=== PATIENT | male | born 1955 | race Caucasian/White ===

== ENCOUNTER → 2016-05-30 | Outpatient (CLI) | payer OTHER ==
[2016-05-30 08:49] LABS: Basophils % (A) 1 %; CH 30.7; Eosinophils # (A) 0.1 k/uL (0-0.7); Eosinophils % (A) 1 %; HCT 45.2 % (39.0-53.0); HDW 2.22; HGB 14.2 gm/dL (13.0-17.5); Luc # (Auto) 0.13; Luc % (Auto) 3; Lymphocytes % (A) 22 %; MCH 30.3 pg (25.0-35.0); MCHC 31.4 g/dL (31.0-37.0); MCV 96.4 fL (80.0-100.0); Mean Platelet Volume 8.6; Monocytes # (A) 0.3 k/uL (0-1.0); Monocytes % (A) 7 %; Neutrophils # (A) 3.1 k/uL (1.3-7.7); Neutrophils % (A) 66 %; RBC 4.69 m/uL (4.30-5.90); RDW 13.1 % (11.5-15.5); WBC 4.7 k/uL (3.8-10.6); WBC (Perox) 4.63
[2016-05-30 10:51] LABS: ALT 60 U/L (21-72); AST 35 U/L (17-59); Alkaline Phosphatase 95 U/L (38-126); Anion Gap 11 mmol/L; Blood Urea Nitrogen 18 mg/dL (9-20); Carbon Dioxide 27 mmol/L (22-30); Chloride 105 mmol/L (98-107); Glucose 106 mg/dL (74-99); Non-African American GFR(MDRD) >60 (>60 ml/min/1.73 sqM); Potassium 4.6 mmol/L (3.5-5.1); Sodium 143 mmol/L (137-145); Total Bilirubin 0.8 mg/dL (0.2-1.3); Total Protein 7.4 g/dL (6.3-8.2)
[2016-05-30 11:01] LABS: Follicle Stimulating Hormone 2.2 mIU/mL (1.6-9.7)
[2016-05-30 11:16] LABS: Prostate Specific Antigen 1.16 ng/mL (0.00-4.00)
[2016-05-30 11:18] LABS: Estradiol 29 pg/mL (5-66)
[2016-05-30 12:32] LABS: Hepatitis C Virus IgG Ab Negative (Negative)
== END | disposition home or self-care (01) ==
LOC: LABWHC1 08:19
PROVIDERS: ATTEND Obstetrics & Gynecology
DX: R35.1 Nocturia (principal); M19.90 Unspecified osteoarthritis, unspecified site; N52.9 Male erectile dysfunction, unspecified; E55.9 Vitamin D deficiency, unspecified; E29.1 Testicular hypofunction; Z13.9 Encounter for screening, unspecified
CPT/HCPCS: 36415; 80053; 82306; 82670; 83001; 84153; 84402; 84403; 84443; 85025; 86803

== ENCOUNTER → 2016-07-10 | Day surgery (SDC) | payer BC, OTHER ==
[2016-07-05 13:54] VITALS: BMI 27.6
[~2016-07-10] MED LIST: LACTATED RINGERS 1,000 ML IV SCH; LIDOCAINE 1% 20 ML VIAL (10MG/ML) FOR IV START INTRADERMA PRN; LIDOCAINE 1% INJ 10MG/ML (20 ML MDV) ONE; PROPOFOL 10 MG/ML 20 ML VIAL IV ONE
[2016-07-10 08:23] VITALS: RESP 20; TEMP 98.3
--- NOTE | 2016-07-10 08:51 | P.PCN ---
Date of Procedure: 07/10/16 Procedure(s) Performed: BRIEF HISTORY: Patient is a 60-year-old pleasant white male, scheduled for an elective colonoscopy as a part of evaluation of Hemoccult-positive stool. PROCEDURE PERFORMED: Colonoscopy. PREOPERATIVE DIAGNOSIS: Hemoccult Positive stool. IV sedation per Anesthesia. PROCEDURE: After informed consent was obtained, the patient, was brought into the endoscopy unit. IV conscious sedation was administered by Anesthesia under continuous monitoring. Initially the Olympus CF-160 flexible video colonoscope was then inserted in the rectum, gradually advanced into the cecum without any difficulty. Careful examination was performed as the scope was gradually being withdrawn. Ileocecal valve and the appendiceal orifice were visualized and appeared normal. Prep was excellent. Mucosa of the cecum, ascending colon, transverse colon, descending colon, sigmoid colon, and rectum appeared normal. Scattered diffuse diverticulosis seen. Retroflexion was performed in the rectum and all internal hemorrhoids were seen. The patient tolerated the procedure well. IMPRESSION: Normal-appearing colon from rectum to cecum with no evidence of colorectal neoplasia. Scattered diffuse diverticulosis Small internal hemorrhoids RECOMMENDATIONS: Findings of this examination were discussed with the patient as well as his family. He was advised to have a repeat scanning colonoscopy in 10 years.
[2016-07-10 09:14] VITALS: BP 126/81; PULSE 63
--- NOTE | 2016-07-15 05:19 | CDI ---
Dear Dr. Pereyra, The Procedure Note documents IV Sedation per Anesthesia in one spot and then under Procedure IV Conscious sedation is also documented. The Anesthesia Record has GA/Unconscious sedation checked off under Technique. This is conflicting documentation that needs clarification. Please clarify whether the sedation provided Tico Delaney was Conscious sedation or Unconscious Sedation. PLEASE DOCUMENT THIS CLARIFICATION AN ADDENDUM TO THE PROCEDURE NOTE. Thank you for our time, Sofia Estrella, [facility] Outpatient Public Transit Bus Driver [email or web address] [email or web address]
--- NOTE | 2016-07-19 11:58 | PCN ---
ADDENDUM TO PROCEDURE NOTE: General anesthesia was utilized instead of IV conscious sedation.
== END ==
LOC: ORWHC2ENDO 07:51
PROVIDERS: ATTEND Internal Medicine Gastroenterology
DX: K57.30 Diverticulosis of large intestine without perforation or abscess without bleeding (principal); K64.8 Other hemorrhoids; I10 Essential (primary) hypertension; K21.9 Gastro-esophageal reflux disease without esophagitis; Z79.899 Other long term (current) drug therapy
CPT/HCPCS: 45378; J2001; J2704

== ENCOUNTER 2018-04-16 10:44 | Day surgery (SDC) | payer OTHER ==
[2018-04-14 09:57] VITALS: BMI 26.1
[~2018-04-16 10:44] MED LIST changes: +ASPIRIN 325 MG TAB PO ONE; -LACTATED RINGERS 1,000 ML IV SCH; -LIDOCAINE 1% 20 ML VIAL (10MG/ML) FOR IV START INTRADERMA PRN; -LIDOCAINE 1% INJ 10MG/ML (20 ML MDV) ONE; +NITROGLYCERIN SL TABS 0.4 MG TAB SUBLINGUAL PRN; -PROPOFOL 10 MG/ML 20 ML VIAL IV ONE; +SODIUM CHLORIDE 0.9% 1,000 ML in EMPTY BAG 1 BAG IV ONE
[2018-04-16] MEDS: ALPRAZolam 0.25 MG TAB PO PRN ×2 (11:10→22:57)
[2018-04-16 11:13] LABS: Basophils % (A) 0 %; Eosinophils % (A) 1 %; HCT 48.8 % (39.0-53.0); HGB 15.7 gm/dL (13.0-17.5); Lymphocytes # (A) 1.2 k/uL (1.0-4.8); Lymphocytes % (A) 20 %; MCH 30.1 pg (25.0-35.0); MCHC 32.2 g/dL (31.0-37.0); MCV 93.5 fL (80.0-100.0); Monocytes # (A) 0.4 k/uL (0-1.0); Monocytes % (A) 6 %; Neutrophils # (A) 4.3 k/uL (1.3-7.7); Neutrophils % (A) 70 %; Platelet Count 201 k/uL (150-450); RBC 5.22 m/uL (4.30-5.90); RDW 13.3 % (11.5-15.5); WBC 6.1 k/uL (3.8-10.6)
[2018-04-16 11:23] LABS: Anion Gap 11 mmol/L; Blood Urea Nitrogen 19 mg/dL (9-20); Calcium 9.5 mg/dL (8.4-10.2); Carbon Dioxide 30 mmol/L (22-30); Chloride 99 mmol/L (98-107); Glucose 102 mg/dL (74-99); Potassium 3.7 mmol/L (3.5-5.1); Sodium 140 mmol/L (137-145)
[2018-04-16] MEDS ORDERED: fentaNYL (PF) 50 MCG/ML 2 ML AMP ONE (11:39)
[2018-04-16] MEDS ORDERED: VERAPAMIL 2.5 MG/ML 2 ML AMP ONE (11:39)
[2018-04-16] MEDS ORDERED: LIDOCAINE 1% INJ 10MG/ML (20 ML MDV) ONE (11:39)
[2018-04-16] MEDS ORDERED: HEPARIN SODIUM 1,000 UN/ML (10ML VL) ONE (11:39)
[2018-04-16] MEDS ORDERED: fentaNYL (PF) 50 MCG/ML 2 ML AMP IVP ONE (12:20)
[2018-04-16] MEDS ORDERED: LIDOCAINE 1% (PF) 10MG/ML VIAL SQ ONE (12:24)
[2018-04-16] MEDS ORDERED: VERAPAMIL SYRINGE (5 MG/10 ML) INTRAARTER ONE (12:27)
[2018-04-16] MEDS ORDERED: NITROGLYCERIN 1000MCG/10ML SYRINGE INTRACORON ONE (12:32)
[2018-04-16] MEDS ORDERED: HEPARIN SODIUM 1,000 UN/ML (10ML VL) IV ONE (12:32)
[2018-04-16] MEDS ORDERED: RX INFO: IV CONTRAST WAS GIVEN 1 EACH MISC MISCELLANE PRN (13:00)
[2018-04-16] MEDS ORDERED: SODIUM CHLORIDE 0.9% 1,000 ML IV SCH (13:00)
[2018-04-16 14:10] LABS: Basophils % (A) 1 %; Eosinophils % (A) 1 %; HCT 44.7 % (39.0-53.0); HGB 14.3 gm/dL (13.0-17.5); Lymphocytes # (A) 1.3 k/uL (1.0-4.8); Lymphocytes % (A) 20 %; MCH 29.5 pg (25.0-35.0); MCHC 31.9 g/dL (31.0-37.0); MCV 92.3 fL (80.0-100.0); Monocytes # (A) 0.4 k/uL (0-1.0); Monocytes % (A) 7 %; Neutrophils # (A) 4.3 k/uL (1.3-7.7); Neutrophils % (A) 69 %; Platelet Count 171 k/uL (150-450); RBC 4.84 m/uL (4.30-5.90); RDW 13.3 % (11.5-15.5); WBC 6.2 k/uL (3.8-10.6)
[2018-04-16 14:16] LABS: Prothrombin Time 11.1 sec (9.0-12.0)
[2018-04-16 14:33] LABS: ALT 37 U/L (21-72); AST 29 U/L (17-59); Albumin 4.1 g/dL (3.5-5.0); Alkaline Phosphatase 102 U/L (38-126); Anion Gap 10 mmol/L; Blood Urea Nitrogen 18 mg/dL (9-20); Calcium 9.2 mg/dL (8.4-10.2); Carbon Dioxide 25 mmol/L (22-30); Chloride 102 mmol/L (98-107); Cholesterol 141 mg/dL (<200); Glucose 101 mg/dL (74-99); HDL Cholesterol 51 mg/dL (40-60); LDL Cholesterol,Calculated 82 mg/dL (0-99); Magnesium 1.9 mg/dL (1.6-2.3); Potassium 3.7 mmol/L (3.5-5.1); Sodium 137 mmol/L (137-145); Triglycerides 41 mg/dL (<150)
[2018-04-16 14:49] LABS: Partial Thromboplastin Time 74.4 sec (22.0-30.0)
[2018-04-16 14:52] LABS: Appearance,Urine Clear (Clear); Bilirubin,Urine Negative (Negative); Blood,Urine Negative (Negative); Color,Urine Yellow; Glucose,Urine (UA) Negative (Negative); Ketones,Urine 2+ (Negative); Leukocyte Esterase,Urine Negative (Negative); Nitrite,Urine Negative (Negative); PH, Urine 8.5 (5.0-8.0); Protein,Urine Negative (Negative); Urobilinogen,Urine <2.0 mg/dL (<2.0)
[2018-04-16 14:56] LABS: Specific Gravity,Urine >1.050 (1.001-1.035)
--- NOTE | 2018-04-16 15:33 | XR ---
EXAMINATION TYPE: XR chest 2V DATE OF EXAM: 04/16/2018 COMPARISON: None HISTORY: Shortness of breath TECHNIQUE: Frontal and lateral views of the chest are obtained. FINDINGS: Scattered senescent parenchymal changes noted. Hyperinflation compatible with COPD. No evidence for infiltrate. No evidence for atelectasis. Heart size is stable. Mediastinal structures are stable and grossly unremarkable. No evidence for hilar prominence. Degenerative changes dorsal spine. IMPRESSION: 1. No evidence for acute pulmonary disease.
--- NOTE | 2018-04-16 15:40 | CC ---
CARDIAC CATHETERIZATION REPORT Rhett Reyna is a 62-year-old male with a history of hypertension, hyperlipidemia who recently has been complaining of episode of chest discomfort, at times at rest and at times at exertion. He underwent a stress echocardiogram that revealed evidence of apical ischemia. In view of that, recommendation made regarding cardiac catheterization. The procedures, risks and complications were discussed with the patient who is in full understanding and agreement. PROCEDURE: Patient was brought to laboratory technician in a fasting semi-sedated state after receiving fentanyl and Benadryl and achieving moderate conscious sedated state. Using Xylocaine anesthesia and Seldinger technique, a 6-Zambian sheath was introduced in the right radial artery. Selective right and left coronary angiography was performed using 5- [place]ian 3.5 bend right and left Emiliano catheter, multiple views of the coronary artery including hemiaxial views were obtained. Following that, a 5-[place]ambian tight pigtail catheter was introduced in the left ventricle and a 30 degree ALVAREZ view of the left ventricle was obtained. Following that, catheter and sheath were removed. Hemostasis was obtained with deployment of a TR band. There was no immediate complication. Patient was returned to his room in stable condition. Of note, the patient received 4500 units of intravenous heparin as well as intra-arterial verapamil. FINDINGS: FLUOROSCOPY: There was severe calcification involving the proximal LAD. LEFT MAIN: This is a large-sized vessel, bifurcating into left circumflex, left anterior descending artery. Left main coronary artery has no evidence of high-grade stenosis. LEFT ANTERIOR DESCENDING ARTERY: This vessel is totally occluded at the takeoff of the first septal low altitude air defense gunner. There is ipsilateral collaterals filling up the LAD close to where the total occlusion is. LEFT CIRCUMFLEX: This is a large-sized vessel, nondominant, giving rise to a large obtuse marginal branch. The left circumflex has a 20% plaque in the mid segment. The distal left circumflex has a 50% to 60% plaque, beyond that, the vessel is moderate in caliber. RIGHT CORONARY ARTERY: This vessel is totally occluded proximally with no significant antegrade flow. COLLATERALS: There is collaterals from the left coronary system toward the right PDA and PLV. LEFT VENTRICULOGRAM: Left ventriculogram is performed in 30 degree ALVAREZ view and revealed apical anterior hypokinesis, ejection fraction is 50%. There is no significant mitral regurgitation. HEMODYNAMICS: There was no gradient across the aortic valve. The left ventricular end-diastolic pressure was 16-20 mmHg. CONCLUSION: 1. 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 2. Moderate disease in the distal left circumflex. 3. Mildly impaired left ventricular systolic function. RECOMMENDATION: In view of finding anatomy, I recommend proceeding with evaluation for possible coronary artery bypass grafting. The other option will be to proceed with high risk complex angioplasty. Depending on his progress, further recommendation will be made. Those findings and recommendations were discussed with the patient and his family who are in full understanding and agreement. Duration of the procedure is 17 minutes. MMKOMALL / ASMITAN: [id number] /
--- NOTE | 2018-04-16 15:44 | P.GSCN ---
Addendum entered and electronically signed by Gris Luna NP-C 04/17/18 15:05 : Preoperative testing was reviewed in detail with Dr. Bridges. Plan is for off- pump coronary artery bypass graft surgery with left internal mammary artery and left radial artery harvesting, exclusion of the left atrial appendage, and intraoperative transesophageal echocardiogram by Dr. Bridges on 05/14/2018. This was agreeable to the patient and his . Dr. Castanon was made aware by Dr. Bridges. The patient was instructed if he has any chest pain he should return to the emergency room and surgery may occur earlier. The patient was in agreement with this plan. Continue aspirin, statin, beta rosaura therapy. Patient will return shortly before surgery to get updated lab work and type and screen drawn. Original Note: History of Present Illness Consult date: 04/16/18 Reason for Consult: Symptomatic multivessel coronary artery disease. Requesting physician: Lisa Castanon History of present illness: This is 62-year-old gentleman who is followed by Dr. Mathieu Marin on an outpatient basis. His past medical history significant for hypertension, dyslipidemia, anxiety, glaucoma, family history of early onset coronary artery disease with an uncle from a myocardial infarction at age 40 and gastroesophageal reflux disease. 2 years ago while sleeping the patient was woken up due to some complaints of chest discomfort associated with lightheadedness, diaphoresis and complaints of nausea. Recently, the patient has been having similar type episodes which have not been associated with activity. He denies any nausea, syncope, fever, chills, or near syncope. Due to the patient's above-mentioned symptoms he underwent a stress echocardiogram which was completed it [facility] which demonstrated stress induced hypokinetic distal anterior and apical wall motion abnormality. During the stress test he did not have any complaints of chest discomfort. The patient reports he also underwent a Holter monitor which showed normal sinus rhythm with short bursts of supraventricular tachycardia. He was subsequently seen by Dr. Castanon from [facility] and was recommended to undergo an elective heart catheterization. Patient was brought into the hospital and after obtaining consent was taken to the [facility] Operator where he underwent an elective left heart catheterization performed by Dr. Castanon which demonstrated a totally occluded right coronary artery and a totally occluded proximal left anterior descending coronary artery. Also during the cardiac catheterization a left ventriculogram was completed which showed him to have an ejection fraction of 50%. Due to the patient's symptoms, stress test results and cardiac catheterization results a consult was placed to Dr. Jose Bridges from cardiothoracic surgery for recommendations on myocardial revascularization surgery. Review of Systems A 14 point review of systems was completed and was negative except as mentioned in the HPI. Past Medical History Past Medical History: Eye Disorder, GERD/Reflux, Hyperlipidemia, Hypertension Additional Past Medical History / Comment(s): glaucoma, spells of lightheadedness. History of Any Multi-Drug Resistant Organisms: None Reported Past Surgical History: Ear Surgery Additional Past Surgical History / Comment(s): Colonoscopy, injections and laser treatments to his bilateral lower extremities for varicose veins. Laser eye treatments for glaucoma. Past Anesthesia/Blood Transfusion Reactions: No Reported Reaction Additional Past Anesthesia/Blood Transfusion Reaction / Comm: Easily sedated. Past Psychological History: Anxiety Smoking Status: Never smoker Past Alcohol Use History: Occasional Past Drug Use History: None Reported - Past Family History Mother Family Medical History: Cancer, Coronary Artery Disease (CAD) (Stent placement in her 70s.) Additional Family Medical History / Comment(s): Ovarian Father Family Medical History: AFIB, Hypertension Additional Family Medical History / Comment(s): Hypertension and atrial fibrillation. Medications and Allergies Home Medications Medication Instructions Recorded Confirmed Type Brimonidine Tartrate/Timolol 1 drop BOTH EYES BID 07/05/16 04/16/18 History [Combigan 0.2%-0.5% Eye Drops] Travoprost [Travatan Z 0.004%] 1 drop BOTH EYES DAILY 07/05/16 04/16/18 History Hydrochlorothiazide [Hydrodiuril] 25 mg PO DAILY 04/14/18 04/16/18 History Netarsudil Mesylate [Rhopressa] 1 drop BOTH EYES DAILY 04/14/18 04/16/18 History Aspirin 81 mg PO HS 04/16/18 04/16/18 History Allergies Allergy/AdvReac Type Severity Reaction Status Date / Time No Known Allergies Allergy Verified 04/14/18 09:21 Surgical - Exam Vital Signs Temp Pulse Resp BP Pulse Ox 97.8 F 66 16 164/93 100 04/16/18 11:17 04/16/18 11:17 04/16/18 11:17 04/16/18 11:17 04/16/18 11:17 - General well developed, well nourished, no distress, no pain - Eyes PERRL, normal ocular movement - ENT normal pinna, normal nares, normal mucosa, no hearing loss, no congestion - Neck Neck is supple, no lymphadenopathy. no masses, no bruits, trachea midline, no venous distension - Respiratory Lung sounds are essentially clear throughout. Respirations are symmetrical and nonlabored. Oxygen saturation are 99% on room air. Bedside FEV1 completed which demonstrated a predicted value of 98%. - Cardiovascular Regular rhythm and rate. S1 and S2 present, negative for S3, gallop or murmur. No edema present. - Abdomen Abdomen is soft, nontender and nondistended. Active bowel sounds all 4 abdominal quadrants. No organomegaly. No guarding or rigidity. - Genitourinary Deferred - Rectum Deferred - Integumentary no rash, no growths, no abnormal pigmentation - Neurologic normal coordination, normal sensation - Musculoskeletal normal gait, normal posture - Psychiatric oriented to time, oriented to person, oriented to place, speech is normal, memory intact Results - Labs 04/16/18 13:18 04/16/18 13:18 Abnormal Lab Results - Last 24 Hours (Table) 04/16/18 04/16/18 04/16/18 Range/Units 11:00 13:18 13:18 APTT 74.4 H (22.0-30.0) sec Glucose 102 H 101 H (74-99) mg/dL Urine pH (5.0-8.0) Ur Specific [place] (1.001-1.035) Urine Ketones (Negative) 04/16/18 Range/Units Unknown APTT (22.0-30.0) sec Glucose (74-99) mg/dL Urine pH 8.5 H (5.0-8.0) Ur Specific [place] >1.050 H (1.001-1.035) Urine Ketones 2+ H (Negative) Diabetes panel 04/16/18 04/16/18 Range/Units 11:00 13:18 Sodium 140 137 (137-145) mmol/L Potassium 3.7 3.7 (3.5-5.1) mmol/L Chloride 99 102 (98-107) mmol/L Carbon Dioxide 30 25 (22-30) mmol/L BUN 19 18 (9-20) mg/dL Creatinine 0.94 0.91 (0.66-1.25) mg/dL Glucose 102 H 101 H (74-99) mg/dL Calcium 9.5 9.2 (8.4-10.2) mg/dL AST 29 (17-59) U/L ALT 37 (21-72) U/L Alkaline Phosphatase 102 (38-126) U/L Total Protein 7.0 (6.3-8.2) g/dL Albumin 4.1 (3.5-5.0) g/dL Triglycerides 41 (<150) mg/dL HDL Cholesterol 51 (40-60) mg/dL Thyroid panel 04/16/18 Range/Units 13:18 TSH 0.650 (0.465-4.680) mIU/L Calcium panel 04/16/18 04/16/18 Range/Units 11:00 13:18 Calcium 9.5 9.2 (8.4-10.2) mg/dL Albumin 4.1 (3.5-5.0) g/dL Pituitary panel 04/16/18 04/16/18 Range/Units 11:00 13:18 Sodium 140 137 (137-145) mmol/L Potassium 3.7 3.7 (3.5-5.1) mmol/L Chloride 99 102 (98-107) mmol/L Carbon Dioxide 30 25 (22-30) mmol/L BUN 19 18 (9-20) mg/dL Creatinine 0.94 0.91 (0.66-1.25) mg/dL Glucose 102 H 101 H (74-99) mg/dL Calcium 9.5 9.2 (8.4-10.2) mg/dL TSH 0.650 (0.465-4.680) mIU/L Adrenal panel 04/16/18 04/16/18 Range/Units 11:00 13:18 Sodium 140 137 (137-145) mmol/L Potassium 3.7 3.7 (3.5-5.1) mmol/L Chloride 99 102 (98-107) mmol/L Carbon Dioxide 30 25 (22-30) mmol/L BUN 19 18 (9-20) mg/dL Creatinine 0.94 0.91 (0.66-1.25) mg/dL Glucose 102 H 101 H (74-99) mg/dL Calcium 9.5 9.2 (8.4-10.2) mg/dL Total Bilirubin 1.0 (0.2-1.3) mg/dL AST 29 (17-59) U/L ALT 37 (21-72) U/L Alkaline Phosphatase 102 (38-126) U/L Total Protein 7.0 (6.3-8.2) g/dL Albumin 4.1 (3.5-5.0) g/dL - Imaging Comments: Cardiac catheterization results were reviewed. Assessment and Plan (1) Hypertension Current Visit: Yes Status: Acute Code(s): I10 - ESSENTIAL (PRIMARY) HYPERTENSION SNOMED Code(s): 20650975 (2) Dyslipidemia Current Visit: Yes Status: Acute Code(s): E78.5 - HYPERLIPIDEMIA, UNSPECIFIED SNOMED Code(s): 654301132 (3) Coronary artery disease Current Visit: Yes Status: Acute Code(s): I25.10 - ATHSCL HEART DISEASE OF [place] CORONARY ARTERY W/O ANG PCTRS SNOMED Code(s): 93110671 (4) GERD (gastroesophageal reflux disease) Current Visit: Yes Status: Acute Code(s): K21.9 - GASTRO-ESOPHAGEAL REFLUX DISEASE WITHOUT ESOPHAGITIS SNOMED Code(s): 968057811 (5) Glaucoma Current Visit: Yes Status: Acute Code(s): H40.9 - UNSPECIFIED GLAUCOMA SNOMED Code(s): 85300655 (6) Anxiety Current Visit: Yes Status: Acute Code(s): F41.9 - ANXIETY DISORDER, UNSPECIFIED SNOMED Code(s): 48234766 (7) Family history of premature coronary artery disease Current Visit: Yes Status: Acute Code(s): Z82.49 - FAMILY HX OF [place] HEART DIS AND OTH DIS OF THE CIRC SYS SNOMED Code(s): 732976302 Plan: The patient was seen and examined. His chart and diagnostics were reviewed. The patient was seen and examined by Dr. Jose Bridges from cardiothoracic surgery. Preoperative testing and preoperative teaching has been initiated. 5 m walk test was completed, time 1: 3.16 seconds, time 2: 2.53 seconds, time 3: 2.26 seconds. STS risk score has been calculated and has been discussed with the patient by Dr. Bridges. Once all of his preoperative teaching has been completed the patient will be scheduled for an elective myocardial revascularization surgery with MARQUEZ and endoscopic harvesting of the left radial artery. With the risks and benefits discussed with the patient and his the patient would like to proceed on an elective basis with myocardial revascularization surgery. Continue to optimize medical management. Bedside pulmonary function test has been completed and showed an FEV1 predicted value of 98%. The patient also reports that he has had vein laser surgery to his bilateral lower extremities for varicose veins. Thank you Dr. Castanon for this consult and we look 40 working with you in the care of your patient. Time with Patient: Greater than 30
[2018-04-16] MEDS: METOPROLOL TARTRATE 25 MG TAB PO SCH ×2 (17:30→20:43)
[2018-04-16] MEDS: ISOSORBIDE MONONITRATE ER 30 MG TAB.ER.24H PO SCH (17:30)
--- NOTE | 2018-04-16 18:04 | US ---
EXAMINATION TYPE: US carotid duplex BILAT DATE OF EXAM: 04/16/2018 COMPARISON: NONE CLINICAL HISTORY: preop cabg. EXAM MEASUREMENTS: RIGHT: Peak Systolic Velocity (PSV) cm/sec ----- Right CCA: 75.7 ----- Right ICA: 106.0 ----- Right ECA: 74.9 ICA/CCA ratio: 1.4 RIGHT: End Diastole cm/sec ----- Right CCA: 17.5 ----- Right ICA: 21.9 ----- Right ECA: 12.8 LEFT: Peak Systolic Velocity (PSV) cm/sec ----- Left CCA: 92.2 ----- Left ICA: 76.8 ----- Left ECA: 142.0 ICA/CCA ratio: 0.8 LEFT: End Diastole cm/sec ----- Left CCA: 21.9 ----- Left ICA: 23.0 ----- Left ECA: 24.1 VERTEBRALS (direction of flow): Right Vertebral: Antegrade Left Vertebral: Antegrade Rhythm: Normal No significant stenosis seen, mild plaque noted IMPRESSION: There is antegrade flow in the vertebral arteries. The images and measurements suggest l ess than 25% stenosis in both internal carotid arteries. Criteria for Assigning % of Stenosis / Diameter reduction (Estimation based on the indirect measurements of the internal carotid artery velocities (ICA PSV). 1. Normal (no stenosis)=ICA PSV < 125 cm/s: ratio < 2.0: ICA EDV<40 cm/s. 2. Less than 50% stenosis=ICA PSV < 125 cm/s: ratio < 2.0: ICA EDV<40 cm/s. 3. 50 to 69% stenosis=ICA PSV of 125 to 230 cm/s: ration 2.0 ? 4.0: ICA EDV 40-100 cm/s. 4. Greater than 70% stenosis to near occlusion= ICA PSV > 230 cm/s: ratio > 4.0: ICA EDV > 100 cm/s. 5. Near occlusion= ICA PSV velocities may be low or undetectable: variable ratio and ICA EDV. 6. Total occlusion=unable to detect flow.
[2018-04-16] MEDS: TIMOLOL 0.5% OPHTH DROPS 5 ML BTL BOTH EYES SCH (20:36)
[2018-04-16] MEDS: BRIMONIDINE TARTRATE 0.2% DROPS 5 ML BTL BOTH EYES SCH (20:36)
[2018-04-16] MEDS ORDERED: ASPIRIN 81 MG PO SCH (21:00)
[2018-04-16 21:27] LABS: Hepatitis A Antibody IgM Non-Reactive (Non-Reactive); Hepatitis B Core IgM Non-Reactive (Non-Reactive)
[2018-04-16 21:31] LABS: Hemoglobin A1C 5.5 % (4.0-6.0)
[2018-04-16] MEDS: MUPIROCIN 2% OINT 22 GM TUBE NASAL SCH (21:52)
[2018-04-17 06:37] LABS: Calcium 8.8 mg/dL (8.4-10.2)
--- NOTE | 2018-04-17 07:08 | PN ---
PROGRESS NOTE Mr. Delaney is a 62-year-old male who presented with symptoms of chest discomfort and abnormal stress echocardiogram. He underwent cardiac catheterization yesterday revealed a chronically occluded right coronary artery and the LAD in the proximal segment. His left ventricular systolic function was mildly impaired with anteroapical hypokinesis. He was evaluated by Dr. Bridges and the plan is to proceed with coronary artery bypass grafting. He is doing well this morning. Denying any chest pain. He has ambulated. No dizziness. No palpitation. He continued to be on aspirin 81 mg daily, Lipitor 40 mg daily, hydrochlorothiazide 25 mg daily, isosorbide mononitrate 30 mg daily, metoprolol tartrate 25 mg twice a day. PHYSICAL EXAMINATION: Blood pressure 100/60 with the heart rate in the 60s. LUNGS: Clear. HEART: Regular rate and rhythm. S1, S2. No S3. No rub. ABDOMEN: Soft, nontender. EXTREMITIES: No edema. Right radial pulse intact. LAB DATA: Lab data revealed BUN and creatinine of 21 and 1.07. Potassium 4.0. IMPRESSION: 1. Chronic occluded proximal left anterior descending artery and proximal right coronary artery. 2. Hypertension. RECOMMENDATION: The patient will be discharged home today and proceed with coronary artery bypass grafting electively. Those findings and recommendation were discussed with the patient who is in full understanding and agreement. MMODL / IJN: [id number] /
[2018-04-17] MEDS: MUPIROCIN 2% OINT 22 GM TUBE NASAL SCH (08:02)
[2018-04-17] MEDS: METOPROLOL TARTRATE 25 MG TAB PO SCH (08:02)
[2018-04-17] MEDS: ISOSORBIDE MONONITRATE ER 30 MG TAB.ER.24H PO SCH (08:02)
[2018-04-17] MEDS: TIMOLOL 0.5% OPHTH DROPS 5 ML BTL BOTH EYES SCH (08:03)
[2018-04-17] MEDS: BRIMONIDINE TARTRATE 0.2% DROPS 5 ML BTL BOTH EYES SCH (08:03)
[2018-04-17] MEDS ORDERED: HYDROCHLOROTHIAZIDE 25 MG TAB PO SCH (09:00)
[2018-04-17] MEDS ORDERED: NETARSUDIL MESYLATE BOTH EYES SCH (09:00)
[2018-04-17] MEDS ORDERED: ATORVASTATIN 40 MG TAB PO SCH (09:00)
[2018-04-17] MEDS ORDERED: LOSARTAN 25 MG TAB PO SCH (09:00)
[2018-04-17 09:12] VITALS: RESP 16; TEMP 97.8
--- NOTE | 2018-04-17 11:01 | ECHOF ---
Referral Reason:preop cabg MEASUREMENTS -------- HEIGHT: 180.3 cm WEIGHT: 88.5 kg BP: 118/75 RVIDd: 3.3 cm (< 3.3) IVSd: 1.3 cm (0.6 - 1.1) LVIDd: 4.7 cm (3.9 - 5.3) LVPWd: 1.4 cm (0.6 - 1.1) IVSs: 2.2 cm LVIDs: 3.1 cm LVPWs: 1.7 cm LA Diam: 3.8 cm (2.7 - 3.8) LAESV Index (A-L): 21.04 ml/m Ao Diam: 3.4 cm (2.0 - 3.7) AV Cusp: 2.6 cm (1.5 - 2.6) MV EXCURSION: 16.659 mm (> 18.000) MV EF SLOPE: 64 mm/s (70 - 150) EPSS: 0.6 cm MV E John: 0.50 m/s MV DecT: 400 ms MV A John: 0.72 m/s MV E/A Ratio: 0.70 RAP: 5.00 mmHg RVSP: 22.70 mmHg FINDINGS -------- Sinus rhythm. This was a technically good study. The left ventricular size is normal. There is moderate concentric left ventricular hypertrophy. O verall left ventricular systolic function is mildly impaired with, an EF between 45 - 50 %. Mid ant eroseptal LV wall motion is hypokinetic. Apical anterior LV wall motion is hypokinetic. Apical septum LV wall motion is hypokinetic. The right ventricle is mildly enlarged. Normal LA size by volume 22+/-6 ml/m2. The right atrium is normal in size. The aortic valve is trileaflet and appears structurally normal. The mitral valve is normal. Mild tricuspid regurgitation present. Right ventricular systolic pressure is normal at < 35 mmHg. Trace/mild (physiologic) pulmonic regurgitation. The aortic root size is normal. Normal inferior vena cava with normal inspiratory collapse consistent with estimated right atrial pre ssure of 5 mmHg. There is no pericardial effusion. CONCLUSIONS -------- 1. Sinus rhythm. 2. This was a technically good study. 3. The left ventricular size is normal. 4. There is moderate concentric left ventricular hypertrophy. 5. Overall left ventricular systolic function is mildly impaired with, an EF between 45 - 50 %. 6. Mid anteroseptal LV wall motion is hypokinetic. 7. Apical anterior LV wall motion is hypokinetic. 8. Apical septum LV wall motion is hypokinetic. 9. The right ventricle is mildly enlarged. 10. Normal LA size by volume 22+/-6 ml/m2. 11. The right atrium is normal in size. 12. The aortic valve is trileaflet and appears structurally normal. 13. The mitral valve is normal. 14. Mild tricuspid regurgitation present. 15. Right ventricular systolic pressure is normal at < 35 mmHg. 16. Trace/mild (physiologic) pulmonic regurgitation. 17. The aortic root size is normal. 18. Normal inferior vena cava with normal inspiratory collapse consistent with estimated right atrial pressure of 5 mmHg. 19. There is no pericardial effusion. INKER MACHINE: Tanya Arciniega RDCS
[2018-04-17 11:52] VITALS: BP 93/59; PULSE 60
[2018-04-17] MEDS ORDERED: LATANOPROST 0.005% OPHTH DROPS 2.5 ML BTL BOTH EYES SCH (21:00)
--- NOTE | 2018-04-22 09:41 | P.ARTDOP ---
Arterial Doppler LOWER EXTREMITY ARTERIAL DOPPLER: DATE OF SERVICE: 04/16/2018 Reason for study: Preop CABG. Doppler waveforms: Multiphasic bilaterally throughout. Pulse volume recording: []. Pressure gradients: None. Ankle-brachial indices: Greater than 1 bilaterally. Toe pressures: [] on the right, [] on the left Impression: Normal study.
--- NOTE | 2018-04-22 09:43 | P.ARTDOP ---
Arterial Doppler Bilateral radial artery studies: Date of study: 04/17/2018 Doppler assessment shows no right to left or segmental pressure gradients. Digital plethysmography with radial artery compression: No significant pressure changes. Imaging: Right radial ranges in size from 3.5 x 2.4-3.3 x 3.6. Left radial ranges in size from 2.7 x 2.7-3.0 x 3.6 Both radial arteries are usable.
--- NOTE | 2018-04-22 09:47 | P.VSCSTY ---
Greater Saphenous Vein Mapping This is bilateral lower extremity greater saphenous vein mapping. Date of service 04/16/2018 Vein quality and ultrasound appearance the greater saphenous vein in both eyes is noncompressible in the area of mid thigh and above the knee Vein size groin right 6.7 x 4.5 groin left 6.0 x 5.0 High thigh right 3.1 x 2.4 high thigh left 5.0 x 4.2 Mid thigh right 5.3 x 2.8 mid thigh left 3.5 x 3.1 Above-knee right 2.9 x 2.9 above- knee left 5.2 x 3.4 Below knee right 4.3 x 2.8 below-knee left 6.3 x 4.5 Mid calf right 5.2 x 3.7 mid calf left 2.7 x 2.4 Ankle right 3.7 x 2.9 ankle left 2.8 x 2.2 Lesser saphenous on the right ranges between 3.1 x 2.2, 2.4 x 3.1, 2.8 x 2.4, 3.0 x 2.4. Impression there appears to be usable saphenous vein at the knee and below on both sides and the right lesser saphenous. Above the knee and mid thigh on both sides are questionable in regards to their use. Clinical correlation, especially assessing the wall quality, is recommended..
== END 2018-04-17 13:40 | disposition home or self-care (01) ==
LOC: CATHCVL 10:44 → 3SCARD 14:55 → CATHCVL 04-17 13:40
PROVIDERS: ATTEND Internal Medicine Interventional Cardiology
DX: I25.10 Atherosclerotic heart disease of native coronary artery without angina pectoris (principal); I25.84 Coronary atherosclerosis due to calcified coronary lesion; I25.82 Chronic total occlusion of coronary artery; I10 Essential (primary) hypertension; I07.1 Rheumatic tricuspid insufficiency; E78.2 Mixed hyperlipidemia; H40.9 Unspecified glaucoma; Z82.49 Family history of ischemic heart disease and other diseases of the circulatory system; K21.9 Gastro-esophageal reflux disease without esophagitis; Z79.02 Long term (current) use of antithrombotics/antiplatelets; Z79.82 Long term (current) use of aspirin; Z79.899 Other long term (current) drug therapy
CPT/HCPCS: 94150; 93306; 93458; 80061; 80053; 80048; 80074; 84443; 83735; 85025; 85610; 85730; 81003; 87070; 87086; 83036; 71046; 93930; 93970; 93922; 93923; 93880; C1894; C1769; J3010; J1644; J2001

== ENCOUNTER → 2018-04-23 | Outpatient (CLI) | payer OTHER ==
--- NOTE | 2018-04-23 16:18 | MR ---
EXAMINATION TYPE: MR brain wo con DATE OF EXAM: 04/23/2018 COMPARISON: None HISTORY: Dizziness, headache CONTRAST: Performed utilizing 0 mL intravenous Gadavist gadolinium contrast. TECHNIQUE: Multiplanar, multiecho imaging on a 3.0 Saumya magnet is performed through the brain. Stud y is performed within 24 hours of arrival to the hospital. The craniovertebral junction is normal. The pituitary is normal. Diffusion-weighted imaging is performed. No abnormal hyperintensity is present to suggest an acute i ntracranial infarct or acute ischemic change. There are scattered punctate areas of hyperintensity on T2 and Inversion Recovery weighted sequences which are non-specific but can be related to microvascular ischemic changes. This appears to be sligh tly greater in the subcortical left parietal white matter but is present bilaterally. Ventricles and sulci are prominent for the patient age. IMPRESSIONS: 1. Scattered periventricular and subcortical white matter changes with age-related atrophy.
== END | disposition home or self-care (01) ==
LOC: RADMRIMAIN 07:30
PROVIDERS: ATTEND Internal Medicine
DX: G31.1 Senile degeneration of brain, not elsewhere classified (principal); R90.82 White matter disease, unspecified
CPT/HCPCS: 70551

== ENCOUNTER → 2018-05-07 | Outpatient (CLI) | payer OTHER ==
[2018-05-07 11:18] LABS: HCT 43.6 % (39.0-53.0); HGB 14.2 gm/dL (13.0-17.5); MCH 30.9 pg (25.0-35.0); MCHC 32.5 g/dL (31.0-37.0); MCV 95.1 fL (80.0-100.0); Mean Platelet Volume 9.2; Platelet Count 185 k/uL (150-450); RBC 4.59 m/uL (4.30-5.90); RDW 13.3 % (11.5-15.5); WBC 5.6 k/uL (3.8-10.6)
[2018-05-07 11:19] LABS: Partial Thromboplastin Time 24.8 sec (22.0-30.0); Prothrombin Time 10.4 sec (9.0-12.0)
[2018-05-07 11:35] LABS: ALT 42 U/L (21-72); AST 29 U/L (17-59); Albumin 4.6 g/dL (3.5-5.0); Alkaline Phosphatase 80 U/L (38-126); Anion Gap 6 mmol/L; Blood Urea Nitrogen 17 mg/dL (9-20); Calcium 9.7 mg/dL (8.4-10.2); Carbon Dioxide 30 mmol/L (22-30); Chloride 105 mmol/L (98-107); Glucose 87 mg/dL (74-99); Potassium 4.6 mmol/L (3.5-5.1); Sodium 141 mmol/L (137-145); Total Protein 7.2 g/dL (6.3-8.2)
== END | disposition home or self-care (01) ==
LOC: LABPAT 07:45
PROVIDERS: ATTEND Surgery
DX: Z01.810 Encounter for preprocedural cardiovascular examination (principal)
CPT/HCPCS: 36415; 80053; 85027; 85610; 85730; 87070

== ENCOUNTER 2018-05-14 05:36 | Inpatient (IN) | payer OTHER ==
[~2018-05-14 05:36] MED LIST changes: +ALBUMIN HUMAN 25% 50 ML IV ONE; +ALBUMIN HUMAN 5% 500 ML IVPB ONE; +ATORVASTATIN 10 MG TAB PO ONE; +CALCIUM CHLORIDE 100 MG/ML 10 ML SYRINGE IV ONE; +CHLORHEXIDINE GLUCONATE 15 ML CUP MUCOUS MEM ONE; +CLEVIDIPINE BUTYRATE 25 MG in EMPTY BAG 1 BAG IV ONE; +DEXTROSE 5% IN WATER 1,000 ML with POTASSIUM CHLORIDE 110 MEQ, MAGNESIUM SULFATE 16 MEQ... IV ONE; +DEXTROSE 5% IN WATER 1,000 ML with POTASSIUM CHLORIDE 25 MEQ, SODIUM CHLORIDE 2.5MEQ/ML... IRRIGATION ONE; +DILTIAZEM 50 MG in SODIUM CHLORIDE 0.9% 40 ML IV ONE; +HEPARIN SODIUM 1,000 UN/ML (10ML VL) IV ONE; +HEPARIN SODIUM,PORCINE 5,000 UNIT in SODIUM CHLORIDE 0.9% 500 ML 500 ML IV ONE; +INSULIN REGULAR 100 UNIT in SODIUM CHLORIDE 0.9% 100 ML IV ONE; +LACTATED RINGERS 1,000 ML IV ONE; +MAGNESIUM SULFATE MG 500 MG/ML IV ONE; +MANNITOL 25% 12.5 GM/50 ML VIAL IV ONE; +METOPROLOL TARTRATE 12.5 MG TAB PO ONE; -NITROGLYCERIN SL TABS 0.4 MG TAB SUBLINGUAL PRN; +NITROGLYCERIN-D5W PMX 25 MG/250 ML BTL IV ONE; +NITROGLYCERIN-D5W PMX 50 MG in DEXTROSE/WATER 1 250ML.BAG IV ONE; +NOREPINEPHRINE 4 MG in SODIUM CHLORIDE 0.9% 250 ML IV ONE; +PAPAVERINE 360 MG in SODIUM CHLORIDE 0.9% 90 ML IV ONE; +PHENYLEPHRINE 40 MG in SODIUM CHLORIDE 0.9% 250 ML IV ONE; +PHENYLEPHRINE-0.9% NACL SYG 1 MG/10 ML SYRINGE IV ONE; +PROPOFOL 1,000 MG/100 ML VIAL IV ONE; +PROTAMINE SULFATE 10 MG/ML 25 ML VIAL IV ONE; +PROTAMINE SULFATE 250 MG in EMPTY BAG 1 BAG IV ONE; +SODIUM BICARB 8.4% 50 ML SYR (1 MEQ/ML) IV ONE; +SODIUM CHLORIDE 0.9% 1,000 ML IV ONE; -SODIUM CHLORIDE 0.9% 1,000 ML in EMPTY BAG 1 BAG IV ONE; +TRANEXAMIC ACID 2,000 MG in SODIUM CHLORIDE 0.9% 180 ML IV ONE; +ceFAZolin 1,000 MG in SODIUM CHLORIDE 0.9% IRRIGATIO 1,000 ML IRRIGATION ONE; +ceFAZolin 2,000 MG in SODIUM CHLORIDE 0.9% 30 ML IVPB ONE
[2018-05-14 06:10] LABS: Glucose,Whole Blood 95 mg/dL (75-99)
[2018-05-14] MEDS ORDERED: fentaNYL (PF) 50 MCG/ML 50 ML VIAL ONE (07:50)
[2018-05-14] MEDS ORDERED: ALBUMIN HUMAN 5% 500 ML VIAL IVPB ONE (07:50)
[2018-05-14] MEDS ORDERED: PROPOFOL 10 MG/ML 20 ML VIAL IV ONE (07:50)
[2018-05-14] MEDS ORDERED: HEPARIN SODIUM,PORCINE 10,000 UNIT/ML 1 ML VIAL ONE (07:50)
[2018-05-14] MEDS ORDERED: VECURONIUM 10 MG VIAL IV ONE (07:50)
[2018-05-14] MEDS ORDERED: LACTATED RINGERS 1,000 ML BAG IV ONE (07:50)
[2018-05-14] MEDS ORDERED: PROTAMINE SULFATE 10 MG/ML 5 ML VIAL IV ONE (07:50)
[2018-05-14] MEDS ORDERED: SODIUM CHLORIDE 0.9% 250 ML BAG ONE (07:50)
[2018-05-14] MEDS ORDERED: MAGNESIUM SULFATE 4 MEQ/ML 10ML VIAL ONE (07:50)
[2018-05-14] MEDS ORDERED: TRANEXAMIC ACID 1,000 MG/10 ML VIAL ONE (07:50)
[2018-05-14] MEDS ORDERED: MIDAZOLAM 2 MG/2 ML VIAL ONE (07:50)
[2018-05-14] MEDS ORDERED: fentaNYL (PF) 50 MCG/ML 2 ML AMP ONE (07:50)
[2018-05-14 08:42] LABS: ABG Base Excess 1.3 mmol/L; ABG HCO3 25 mmol/L (21-25); ABG PCO2 35 mmHg (35-45); ABG PH 7.46 (7.35-7.45); ABG Sodium Whole Blood 140 mmol/L (135-146); ABG TCO2 26 mmol/L (19-24)
[2018-05-14 10:24] LABS: ABG Base Excess 0.3 mmol/L; ABG HCO3 25 mmol/L (21-25); ABG PCO2 40 mmHg (35-45); ABG PO2 320 mmHg (83-108); ABG Sodium Whole Blood 140 mmol/L (135-146); ABG TCO2 26 mmol/L (19-24)
[2018-05-14 10:48] LABS: ABG Base Excess -0.1 mmol/L; ABG HCO3 24 mmol/L (21-25); ABG PCO2 39 mmHg (35-45); ABG PH 7.41 (7.35-7.45); ABG PO2 351 mmHg (83-108); ABG Sodium Whole Blood 139 mmol/L (135-146); ABG TCO2 26 mmol/L (19-24)
[2018-05-14 11:12] LABS: ABG Base Excess -0.5 mmol/L; ABG HCO3 24 mmol/L (21-25); ABG PCO2 38 mmHg (35-45); ABG PH 7.41 (7.35-7.45); ABG PO2 341 mmHg (83-108); ABG Sodium Whole Blood 140 mmol/L (135-146); ABG TCO2 25 mmol/L (19-24)
[2018-05-14 11:35] LABS: ABG HCO3 24 mmol/L (21-25); ABG PCO2 38 mmHg (35-45); ABG PO2 351 mmHg (83-108); ABG Sodium Whole Blood 140 mmol/L (135-146); ABG TCO2 25 mmol/L (19-24)
[2018-05-14 11:57] LABS: ABG Base Excess -1.4 mmol/L; ABG HCO3 23 mmol/L (21-25); ABG PCO2 38 mmHg (35-45); ABG PO2 346 mmHg (83-108); ABG Sodium Whole Blood 140 mmol/L (135-146); ABG TCO2 24 mmol/L (19-24)
[2018-05-14 12:39] LABS: ABG Base Excess -1.2 mmol/L; ABG HCO3 24 mmol/L (21-25); ABG PCO2 39 mmHg (35-45); ABG PH 7.39 (7.35-7.45); ABG PO2 330 mmHg (83-108); ABG Potassium Whole Blood 3.9 mmol/L (3.4-4.5); ABG Sodium Whole Blood 139 mmol/L (135-146); ABG TCO2 25 mmol/L (19-24)
[2018-05-14 12:48] LABS: ABG PO2 >420 mmHg (83-108)
[2018-05-14 12:57] LABS: ABG Base Excess -1.3 mmol/L; ABG HCO3 24 mmol/L (21-25); ABG PCO2 42 mmHg (35-45); ABG PH 7.37 (7.35-7.45); ABG PO2 363 mmHg (83-108); ABG Potassium Whole Blood 3.9 mmol/L (3.4-4.5); ABG Sodium Whole Blood 140 mmol/L (135-146); ABG TCO2 25 mmol/L (19-24)
[2018-05-14] MEDS ORDERED: INSULIN REGULAR 100 UNIT in SODIUM CHLORIDE 0.9% 100 ML IV SCH (14:02)
[2018-05-14] MEDS ORDERED: DEXTROSE 5% IN WATER 100 ML with AMIODARONE 150 MG IV PRN (14:02)
[2018-05-14] MEDS ORDERED: ASPIRIN 300 MG SUPP RECTAL ONE (14:02)
[2018-05-14] MEDS ORDERED: Potassium Replacement Protocol 1 EACH MISC MISCELLANE PRN (14:02)
[2018-05-14] MEDS ORDERED: BENZOCAINE/MENTHOL LOZENG 1 EACH LOZENGE MUCOUS MEM PRN (14:02)
[2018-05-14] MEDS ORDERED: MORPHINE SULFATE 2 MG/ML SYRINGE IVP PRN (14:02)
[2018-05-14] MEDS ORDERED: ONDANSETRON 4 MG/2 ML VIAL IVP PRN (14:02)
[2018-05-14] MEDS ORDERED: NITROGLYCERIN-D5W PMX 50 MG in DEXTROSE/WATER 1 250ML.BAG IV SCH (14:02)
[2018-05-14] MEDS ORDERED: ALBUMIN HUMAN 5% 250 ML in EMPTY BAG 1 BAG IVPB PRN (14:02)
[2018-05-14] MEDS ORDERED: AMIODARONE 450 MG in DEXTROSE 5% IN WATER 250 ML IV PRN ×2 (14:02)
[2018-05-14] MEDS ORDERED: METOCLOPRAMIDE 5 MG/ML 2 ML VIAL IVP PRN (14:02)
[2018-05-14] MEDS ORDERED: CALCIUM CHLORIDE 1,000 MG in SODIUM CHLORIDE 0.9% 100 ML IV PRN (14:02)
[2018-05-14] MEDS ORDERED: Phosphorus Replacement Protoco 1 EACH MISC MISCELLANE PRN (14:02)
[2018-05-14] MEDS ORDERED: Magnesium Replacement Protocol 1 EACH MISC MISCELLANE PRN (14:02)
[2018-05-14] MEDS ORDERED: PROPOFOL 1,000 MG in EMPTY BAG 1 BAG IV SCH (14:02)
[2018-05-14] MEDS ORDERED: IPRATROPIUM-ALBUTEROL 3 ML NEB INHALATION PRN (14:02)
[2018-05-14 14:36] LABS: Glucose,Whole Blood 104 mg/dL (75-99)
[2018-05-14] MEDS: LACTATED RINGERS 1,000 ML IV SCH (14:55)
[2018-05-14] MEDS: ceFAZolin IN SWFI 2 GM/20 ML SYRINGE IVP SCH ×2 (14:57→23:10)
[2018-05-14 15:13] LABS: Ionized Calcium 4.8 mg/dL (4.5-5.3)
[2018-05-14 15:14] LABS: Basophils % (A) 0 %; Eosinophils # (A) 0.1 k/uL (0-0.7); Eosinophils % (A) 1 %; HCT 33.3 % (39.0-53.0); Lymphocytes % (A) 12 %; MCH 30.5 pg (25.0-35.0); MCHC 32.4 g/dL (31.0-37.0); MCV 94.3 fL (80.0-100.0); Mean Platelet Volume 8.3; Monocytes # (A) 0.2 k/uL (0-1.0); Monocytes % (A) 2 %; Neutrophils # (A) 6.8 k/uL (1.3-7.7); Neutrophils % (A) 83 %; Platelet Count 115 k/uL (150-450); RBC 3.53 m/uL (4.30-5.90); RDW 13.2 % (11.5-15.5); WBC 8.2 k/uL (3.8-10.6)
--- NOTE | 2018-05-14 15:19 | XR ---
EXAMINATION TYPE: XR chest 1V portable DATE OF EXAM: 05/14/2018 COMPARISON: 04/16/2018 HISTORY: Postop cardiac surgery TECHNIQUE: Single frontal view of the chest is obtained. FINDINGS: There is a new [place]-Kimberly catheter with the Sissel tip oriented towards the right main pulm onary artery. Left-sided thoracostomy tube has its distal tip oriented towards the mediastinum. No re sidual left pneumothorax is seen. Minimal left basilar subsegmental atelectasis is present. There are low lung volumes in comparison to the prior. Mediastinal drain is seen centrally. Enteric tube cours es beyond the gastroesophageal junction and is appropriately placed. There are new median sternotomy wires and mediastinal clips. Endotracheal tube terminates at the level of the aortic arch. IMPRESSION: New lines and tubes as well as postoperative changes of the chest as described above with left basila r subsegmental atelectasis.
[2018-05-14 15:20] LABS: ALT 32 U/L (21-72); AST 21 U/L (17-59); Albumin 3.3 g/dL (3.5-5.0); Alkaline Phosphatase 53 U/L (38-126); Anion Gap 5 mmol/L; Blood Urea Nitrogen 12 mg/dL (9-20); Calcium 7.8 mg/dL (8.4-10.2); Carbon Dioxide 24 mmol/L (22-30); Chloride 110 mmol/L (98-107); Glucose 95 mg/dL (74-99); HGB 10.8 gm/dL (13.0-17.5); Magnesium 1.9 mg/dL (1.6-2.3); Potassium 4.1 mmol/L (3.5-5.1); Sodium 139 mmol/L (137-145); Total Bilirubin 1.1 mg/dL (0.2-1.3); Total Protein 5.2 g/dL (6.3-8.2)
--- NOTE | 2018-05-14 15:20 | OP ---
OPERATIVE REPORT DATE OF THE SURGERY: 05/14/2018 SURGEON: Dr. Jose Bridges. HOOP EXPANDER: Dwayne Washington and Sherwin Gonzalez. PREOPERATIVE DIAGNOSIS: Double-vessel coronary artery disease with total occlusion of his left anterior descending artery and the right coronary artery, overall preserved left ventricular function, hypertension, hyperlipidemia, status post bilateral ultrasound ablation of the greater saphenous vein systems. POSTOPERATIVE DIAGNOSIS: Double-vessel coronary artery disease with total occlusion of his left anterior descending artery and the right coronary artery, overall preserved left ventricular function, hypertension, hyperlipidemia, status post bilateral ultrasound ablation of the greater saphenous vein systems. PROCEDURE: 1. Total arterial off pump double coronary artery bypass grafting using the left internal mammary artery to the distal left anterior descending artery as a patch angioplasty, the left radial artery connected to the aorta using the heart string III device and connected distally to the distal right coronary artery, proximal posterior descending artery area. 2. Endoscopic harvesting of the left radial artery. 3. Intraoperative transesophageal echocardiogram and epiaortic scanning. 4. Intraoperative graft flow measurements using the [employer]-Stim system. INDICATION FOR SURGERY: The patient is a 62-year-old gentleman with recent complaint of chest tightness. Workup included a stress test that was positive and cardiac catheterization followed and that showed a totally occluded collateralized LAD and right coronary artery system. The circumflex artery was large and supplying the lateral wall and the rest of the collateral flow. His left ventricular function is overall preserved. Today he is being brought in for coronary artery bypass grafting. The STS risk was discussed with him. The patient had some ultrasound ablation procedure to both lower extremities and will be using the left radial artery. His modified Chaz's test was negative at the level of the left hand. DESCRIPTION OF THE PROCEDURE: Patient in supine position, the right internal jugular [place]-Kimberly catheter and right radial arterial line were placed. The patient had normal PA pressure and good cardiac index. Subsequently, general endotracheal anesthesia was induced uneventfully. He received 2 g of cefazolin intravenously. A Baker catheter was inserted. The chest, abdomen and both lower extremities and left upper extremity were prepped and draped using ChloraPrep. Ioban was used to cover the skin. IMMANUEL showed preserved left ventricular function. No significant valvular abnormality. Midline sternotomy was performed and the bone was quite dense. The left hemisternum was elevated and the left internal mammary artery was harvested in a semi- skeletonized fashion. The left pleura was intentionally opened in this process and drained with a 19-[place] Sergio drain. In the same setting, the left radial artery was initially exposed at the level of the wrist and clamping trial revealed preserved pulsatile signal at the level of the left index O2 saturation probe. The left radial artery was harvested subsequently endoscopically and the forearm incision was closed over a drain. Mediastinal fat was transected between 2 ties and epiaortic scanning revealed some concentric intimal thickening but no protruding atheroma in the ascending aorta. Pericardium was opened in an inverted T-fashion and a pericardial cradle was created. Findings included a normal soft aorta, normal size heart. The LAD was intramyocardial emerging distally and had diffuse disease in it. The right coronary system had a very small distal PDAs and the right coronary artery at the bifurcation was identified and was around 1.75 mm in diameter, and will be the site for bypass. Systemic heparinization to achieve an AC above 250 seconds was administered. The ACT was repeated every 20 minutes and additional heparin given if needed. The mammary artery was double clipped distally after its bifurcation and transected, had an excellent pulsatile flow in it and was around 1.75 mm in diameter. The radial artery was prepared by incising the fascia all along its volar aspect. It was about 3 mm in diameter of good quality. The acrobat system, along with the exposed device and the mister-blower were used to perform the surgery on the beating heart. The first distal anastomosis was to the left internal mammary artery and the mid to distal aspect of the left anterior descending artery as it emerged from the deep intramyocardial course. I found the LAD proximally; however, it had calcified disease at that level and would be non bypassable at this level. The segment that is visible had patchy plaques in it and I opened it through a plaque in a matter of having an arteriotomy that was around 2 cm in length and the left internal mammary artery was anastomosed to the left anterior descending artery after inserting a 1 mm shunt using Prolene 7.0 as a patch angioplasty. The mammary artery veins on either side were affixed to the epicardium. Flow measurements at this point with the Medistim system revealed excellent flow at 33 mL/minute, pulsatility index of 2.8, and diastolic filling of 82% showing an excellent functioning graft. Subsequently, the inferior wall was exposed. As mentioned above, the posterior descending artery was a small vessel as well as the left ventricular branch tributaries and the right coronary artery at the bifurcation was exposed. It was thickened; however, it had a patent lumen in it and I passed a 1 mm probe that went into the posterior descending artery. With that, we inserted the 1 mm shunt and I anastomosed the left radial artery to the RCA using Prolene 7.0 in continuous fashion. The shunt was removed before completing the anastomosis which was well tolerated. At this point, the mean arterial pressure was dropped down to around 60 mmHg and a heart string III device was deployed at the anterior aspect of the proximal aorta and the proximal anastomosis of the radial artery to the aorta was performed using Prolene 6.0 in a continuous fashion. De-airing was performed as we removed the heart string III device and completed closing the proximal anastomosis, which was hemostatic. Flow measurements at this point was not satisfactory. The flow was around 5 ml/ minute. With that, I exposed the distal vessel again and there was no obvious distortion. I elected to make a small opening into this 3 mm radial artery and I inserted through it, a 1 mm probe and that was around 3 cm proximal to the distal anastomosis. The 1 mm probe went distally through the distal anastomosis with no problem. With that, we were able to see some backflow and I closed the small arteriotomy in a transverse fashion using Prolene 7.0. Flow measurements at this point revealed much improved flow with a flow of 14 mL/minute, pulsatility index of 3.8, diastolic filling of 45% showing a functioning graft going to probably a limited outflow system. With that, test dose and half dose protamine was given. Another 19-[place] Sergio drain was placed substernally. The pericardial fat was approximated over the heart and the grafts. After ensuring adequate hemostasis and hemodynamic and after correct sponge, instrument, and needle count, the sternum was closed using 5 [id number] pioneer cable after interposing fibrillar between the sternal edges. Thorough irrigation of cefazolin followed. The rest of the closure proceeded in layers. Skin glue was applied. The patient did not receive any blood bank product but received 400 mL of Cell Saver blood. He was transferred to the ICU in excellent condition with normal EKG on low- dose nitroglycerin for radial artery spasm prevention. . MMODL / IJN: [id number] / URIAH
[2018-05-14 15:24] LABS: Glucose,Whole Blood 95 mg/dL (75-99)
[2018-05-14 15:27] LABS: INR 1.1 (<1.2); Partial Thromboplastin Time 33.4 sec (22.0-30.0); Prothrombin Time 11.8 sec (9.0-12.0)
[2018-05-14] MEDS ORDERED: BENZOCAINE SPRAY 1 CAN TOPICAL STA (15:38)
[2018-05-14] MEDS ORDERED: DEXMEDETOMIDINE/0.9% NACL(PMX) 400 MCG in EMPTY BAG 1 BAG IV SCH (15:45)
[2018-05-14] MEDS: CLEVIDIPINE BUTYRATE 25 MG in EMPTY BAG 1 BAG IV SCH ×3 (15:46→23:09)
[2018-05-14] MEDS ORDERED: IPRATROPIUM-ALBUTEROL 3 ML NEB INHALATION SCH ×2 (16:00→19:46)
[2018-05-14 16:29] LABS: Glucose,Whole Blood 121 mg/dL (75-99)
[2018-05-14] MEDS: MAGNESIUM SULFATE-D5W PMX 1 GM in DEXTROSE/WATER 1 100ML.BAG IVPB SCH ×2 (17:12→18:41)
[2018-05-14] MEDS: ACETAMINOPHEN IV (For NPO) 1,000 MG in EMPTY BAG 1 BAG IVPB SCH ×2 (17:12→23:12)
[2018-05-14 17:20] LABS: Basophils % (A) 0 %; Eosinophils # (A) 0.1 k/uL (0-0.7); Eosinophils % (A) 1 %; Glucose,Whole Blood 120 mg/dL (75-99); HCT 39.3 % (39.0-53.0); HGB 12.7 gm/dL (13.0-17.5); Lymphocytes # (A) 1.3 k/uL (1.0-4.8); Lymphocytes % (A) 10 %; MCH 31.1 pg (25.0-35.0); MCHC 32.4 g/dL (31.0-37.0); Mean Platelet Volume 9.1; Monocytes # (A) 0.6 k/uL (0-1.0); Monocytes % (A) 5 %; Neutrophils # (A) 10.8 k/uL (1.3-7.7); Neutrophils % (A) 83 %; Platelet Count 159 k/uL (150-450); RBC 4.09 m/uL (4.30-5.90); RDW 13.4 % (11.5-15.5)
--- NOTE | 2018-05-14 17:25 | P.CNPUL ---
History of Present Illness Consult date: 05/14/18 Chief complaint: Coronary artery bypass surgery. History of present illness: A 62-year-old male patient who is post coital bypass surgery. The patient has double vessel coronary artery disease with total occlusion of the LAD and RCA and the patient had a preserved LV function preoperatively. His, but conditions included hypertension and hyperlipidemia. The patient underwent a off pump double vessel bypass surgery with MARQUEZ to LAD and left radial artery to PDA. Postop the patient was brought into the intensive care unit. The patient was hemodynamically stable. The patient had a mediastinal and a left- sided chest tube with output being minimal. Cardiac index was at 2.9. Pulmonary artery pressures were 30/16. The patient was producing adequate amount of urine output. The patient was immediately given a chest x-ray which showed adequate expansion of both lungs and ET tube and the [place]-Kimberly catheter were all in good location. The patient was gradually weaned off and her FiO2 was brought down to 40%. The initial blood gases showed a pH of 7.37 with a pCO2 of 42 and a pO2 of 363 and this was done and the fact of 100%. We were able to wean down the FiO2 down to 40%. Within a few hours, the patient was given a spontaneous breathing trial and the patient had adequate weaning parameters. After 45 minutes of a spontaneous breathing trial the patient was extubated to nasal cannula. He remains hemodynamically stable. Pain is under good control. Is awake and following commands and answering questions appropriately. No other significant events since his arrival from the operating room. The current hemoglobin is at 10.8. Renal function is within normal with a creatinine of 0.6. Rest of the electrodes are all within normal limits. Review of Systems ROS unobtainable: due to endotracheal tube Past Medical History Past Medical History: Coronary Artery Disease (CAD), Eye Disorder (Glaucoma), GERD/Reflux, Hyperlipidemia, Hypertension History of Any Multi-Drug Resistant Organisms: None Reported Past Surgical History: Heart Catheterization Additional Past Surgical History / Comment(s): Colonoscopy, injections and laser treatments to his bilateral lower extremities for varicose veins. Laser eye treatments for glaucoma. Past Anesthesia/Blood Transfusion Reactions: No Reported Reaction Additional Past Anesthesia/Blood Transfusion Reaction / Comment(s): Easily sedated. Smoking Status: Never smoker - Past Family History Mother Family Medical History: Cancer, Coronary Artery Disease (CAD) Additional Family Medical History / Comment(s): Ovarian Father Family Medical History: AFIB, Hypertension Additional Family Medical History / Comment(s): Hypertension and atrial fibrillation. Medications and Allergies Home Medications Medication Instructions Recorded Confirmed Type Brimonidine Tartrate/Timolol 1 drop BOTH EYES BID 07/05/16 05/14/18 History [Combigan 0.2%-0.5% Eye Drops] Travoprost [Travatan Z 0.004%] 1 drop BOTH EYES DAILY 07/05/16 05/14/18 History Netarsudil Mesylate [Rhopressa] 1 drop BOTH EYES HS 04/14/18 05/14/18 History Aspirin 81 mg PO HS 04/16/18 05/14/18 History Atorvastatin [Lipitor] 40 mg PO DAILY #90 tab 04/17/18 05/14/18 Rx Isosorbide Mononitrate ER [Imdur] 30 mg PO DAILY #30 tab.er.24h 04/17/18 Rx Metoprolol Tartrate [Lopressor] 25 mg PO BID #60 tab 04/17/18 05/14/18 Rx Nitroglycerin Sl Tabs [Nitrostat] 0.4 mg SUBLINGUAL Q5M PRN #25 tab 04/17/18 Rx Mupirocin 2% Oint [Bactroban 2% 1 applic NASAL BID 05/08/18 05/14/18 History Oint] Allergies Allergy/AdvReac Type Severity Reaction Status Date / Time No Known Allergies Allergy Verified 05/14/18 14:40 Physical Exam Vitals: Vital Signs Temp Pulse Pulse Resp BP BP Pulse Ox 05/14/18 17:00 76 12 94 L 05/14/18 16:30 78 17 95 05/14/18 16:00 69 17 100 05/14/18 15:30 59 L 12 100 05/14/18 15:20 60 12 100 05/14/18 15:10 58 L 12 100 05/14/18 15:00 59 L 12 100 05/14/18 14:50 59 L 12 100 05/14/18 14:40 58 L 12 100 05/14/18 14:30 56 L 12 100 05/14/18 14:20 56 L 14 100 05/14/18 14:12 36 H 05/14/18 14:02 100 05/14/18 06:09 98.2 F 61 18 143/88 136/84 96 Intake and Output 05/14/18 05/14/18 05/14/18 06:59 14:59 22:59 Intake Total 33 20.144 Output Total 1660 235 Balance -1627 -214.856 Intake: IV 33 Intake, IV Titration 20.144 Amount Clevidipine Butyrate 25 6.667 mg In Empty Bag 1 bag @ 1 MG/HR 2 mls/hr IV .Q24H FARRUKH Rx#:[id number] Propofol 1,000 mg In 13.477 Empty Bag 1 bag @ Titrate IV .Q0M FARRUKH Rx#: [id number] Output: Chest Tube Drainage 250 235 left pleural chest tube 70 120 mediastinal 180 115 Urine 410 Estimated Blood Loss 1000 Other: Weight 88.7 kg ABP, PAP, CO, CI - Last 8 Hours Arterial Blood Pressure 129/66 Arterial Blood Pressure 127/62 Arterial Blood Pressure 125/61 Arterial Blood Pressure 136/63 Arterial Blood Pressure 131/61 Arterial Blood Pressure 128/60 Arterial Blood Pressure 125/60 Arterial Blood Pressure 122/60 Arterial Blood Pressure 122/62 Arterial Blood Pressure 128/63 Arterial Blood Pressure 132/71 Arterial Blood Pressure 157/84 Pulmonary Artery Pressure 36/24 Pulmonary Artery Pressure 42/19 Pulmonary Artery Pressure 41/20 Pulmonary Artery Pressure 32/16 Pulmonary Artery Pressure 32/16 Pulmonary Artery Pressure 34/18 Pulmonary Artery Pressure 33/17 Pulmonary Artery Pressure 32/17 Pulmonary Artery Pressure 29/15 Pulmonary Artery Pressure 32/17 Pulmonary Artery Pressure 34/18 Cardiac Output 6.2 Cardiac Output 6.2 Cardiac Output 6.2 Cardiac Output 6.2 Cardiac Output 6.2 Cardiac Output 5.7 Cardiac Output 5.7 Cardiac Output 5.7 Cardiac Output 5.7 Cardiac Output 5.7 Gen. appearance, comfortable awake. The patient a orotracheal tube earlier that was taken out and the patient is extubated. Following commands and answering questions. Head exam was generally normal. There was no scleral icterus or corneal arcus. Mucous membranes were moist. The patient has a right IJ [place]-Kimberly catheter which is in place. Orogastric and orotracheal tube are both removed. Neck was supple and without jugular venous distension, thyromegaly, or carotid bruits. Carotids were easily palpable bilaterally. There was no adenopathy. Lungs were clear to auscultation and percussion, and with normal diaphragmatic excursion. No wheezes or rales were noted. Sternum stable clean and intact and the patient has a mediastinal and left pleural chest tube. All of the tubes are in place and output is minimal and there is no evidence of any air leak. Cardiac exam revealed the PMI to be normally situated and sized. The rhythm was regular and no extrasystoles were noted during several minutes of auscultation. The first and second heart sounds were normal and physiologic splitting of the second heart sound was noted. There were no murmurs, rubs, clicks, or gallops. Abdominal exam revealed normal bowel sounds. The abdomen was soft, non-tender, and without masses, organomegaly, or appreciable enlargement of the abdominal aorta. Examination of the extremities revealed easily palpable radial, femoral and pedal pulses. There was no cyanosis, clubbing or edema. Examination of the skin revealed no evidence of significant rashes, suspicious appearing nevi or other concerning lesions. Neurologically the patient is awake and alert and is no focal neurological deficits. Results - Laboratory Findings CBC and BMP: 05/14/18 14:15 05/14/18 14:15 ABG ABG pH 7.37 (7.35-7.45) 05/14/18 12:55 ABG pCO2 42 mmHg (35-45) 05/14/18 12:55 ABG pO2 363 mmHg (83-108) H 05/14/18 12:55 ABG O2 Saturation 100.0 % (94-97) H 05/14/18 12:55 PT/INR, D-dimer PT 11.8 sec (9.0-12.0) 05/14/18 14:15 INR 1.1 (<1.2) 05/14/18 14:15 Abnormal lab findings: Abnormal Labs 05/07/18 05/14/18 05/14/18 10:40 08:41 10:23 RBC Hgb Hct Plt Count APTT ABG pH 7.46 H ABG pO2 >420 H 320 H ABG Total CO2 26 H 26 H ABG O2 Saturation 100.0 H 100.0 H ABG Hematocrit ABG Ionized Calcium ABG Glucose 101 H 106 H Hemoglobin 12.0 L Chloride Creatinine POC Glucose (mg/dL) Calcium Total Protein Albumin Arterial Blood Glucose 101 H 106 H Crossmatch See Detail 0105/14/18 05/14/18 10:48 11:11 11:34 RBC Hgb Hct Plt Count APTT ABG pH ABG pO2 351 H 341 H 351 H ABG Total CO2 26 H 25 H 25 H ABG O2 Saturation 100.0 H 100.0 H 100.0 H ABG Hematocrit ABG Ionized Calcium 4.4 L 4.4 L ABG Glucose 102 H 104 H 104 H Hemoglobin 11.4 L 11.2 L 11.2 L Chloride Creatinine POC Glucose (mg/dL) Calcium Total Protein Albumin Arterial Blood Glucose 102 H 104 H 104 H Crossmatch 05/14/18 05/14/18 05/14/18 11:56 12:38 12:55 RBC Hgb Hct Plt Count APTT ABG pH ABG pO2 346 H 330 H 363 H ABG Total CO2 25 H 25 H ABG O2 Saturation 100.0 H 100.0 H 100.0 H ABG Hematocrit 33 L 32 L ABG Ionized Calcium 4.4 L 4.4 L 4.4 L ABG Glucose 103 H 101 H Hemoglobin 11.2 L 10.6 L 10.5 L Chloride Creatinine POC Glucose (mg/dL) Calcium Total Protein Albumin Arterial Blood Glucose 103 H 101 H Crossmatch 05/14/18 05/14/18 05/14/18 14:15 14:15 14:15 RBC 3.53 L Hgb 10.8 L D Hct 33.3 L Plt Count 115 L APTT 33.4 H ABG pH ABG pO2 ABG Total CO2 ABG O2 Saturation ABG Hematocrit ABG Ionized Calcium ABG Glucose Hemoglobin Chloride 110 H Creatinine 0.63 L POC Glucose (mg/dL) Calcium 7.8 L Total Protein 5.2 L Albumin 3.3 L Arterial Blood Glucose Crossmatch 05/14/18 05/14/18 14:16 16:18 RBC Hgb Hct Plt Count APTT ABG pH ABG pO2 ABG Total CO2 ABG O2 Saturation ABG Hematocrit ABG Ionized Calcium ABG Glucose Hemoglobin Chloride Creatinine POC Glucose (mg/dL) 104 H 121 H Calcium Total Protein Albumin Arterial Blood Glucose Crossmatch - Diagnostic Findings Chest x-ray: image reviewed Assessment and Plan Plan: Assessment 1 coronary artery disease. The patient had a double vessel coronary artery disease and the patient underwent three-vessel bypass surgery, off pump with MARQUEZ to LAD and the radial artery graft to PDA. Postop day #0. The patient was weaned off the mechanical ventilator the patient was extubated without any major difficulties 2 acute postthoracotomy respiratory failure, hypoxic, recovered and this is an expected outcome of surgery. The patient was weaned off the mechanical ventilator and the patient was extubated 3 hypertension 4 hyperlipidemia 5 glaucoma Plan The patient is doing very well. The patient is awake and alert. The patient extubated. The patient is hemodynamically stable. Chest tubes are in place. Output is minimal. Hemodynamic parameters via [place]-Kimberly catheter seem to be appropriate with adequate cardiac output and index. Continue using incentive spirometer. Keep the patient ICU for 24 hours. We'll continue to follow.
[2018-05-14 18:16] LABS: Glucose,Whole Blood 127 mg/dL (75-99)
[2018-05-14] MEDS: KETOROLAC 30 MG/ML 1 ML VIAL IVP PRN (18:49)
[2018-05-14 19:17] LABS: Glucose,Whole Blood 126 mg/dL (75-99)
[2018-05-14] MEDS ORDERED: MUPIROCIN 2% OINT 22 GM TUBE NASAL ONE (19:45)
[2018-05-14 19:54] LABS: Basophils % (A) 0 %; Eosinophils % (A) 0 %; HCT 38.6 % (39.0-53.0); HGB 12.8 gm/dL (13.0-17.5); Lymphocytes # (A) 0.3 k/uL (1.0-4.8); Lymphocytes % (A) 3 %; MCH 31.6 pg (25.0-35.0); MCHC 33.1 g/dL (31.0-37.0); MCV 95.5 fL (80.0-100.0); Monocytes # (A) 0.5 k/uL (0-1.0); Monocytes % (A) 4 %; Neutrophils # (A) 11.1 k/uL (1.3-7.7); Neutrophils % (A) 92 %; Platelet Count 137 k/uL (150-450); RBC 4.04 m/uL (4.30-5.90); RDW 13.2 % (11.5-15.5); WBC 12.1 k/uL (3.8-10.6)
[2018-05-14 19:57] LABS: Glucose,Whole Blood 132 mg/dL (75-99)
[2018-05-14] MEDS: TIMOLOL 0.5% OPHTH DROPS 5 ML BTL BOTH EYES SCH (20:00)
[2018-05-14] MEDS: LATANOPROST 0.005% OPHTH DROPS 2.5 ML BTL BOTH EYES SCH (20:20)
[2018-05-14] MEDS: BRIMONIDINE TARTRATE 0.2% DROPS 5 ML BTL BOTH EYES SCH (20:40)
[2018-05-14] MEDS: MUPIROCIN 2% OINT 22 GM TUBE NASAL SCH (20:40)
[2018-05-14] MEDS: HEPARIN SODIUM,PORCINE 5,000 UNIT/ML 1 ML VIAL SQ SCH (20:48)
[2018-05-14 21:04] LABS: Glucose,Whole Blood 125 mg/dL (75-99)
[2018-05-14] MEDS ORDERED: METOPROLOL TARTRATE 12.5 MG TAB PO SCH (21:15)
[2018-05-14] MEDS: ASPIRIN 325 MG TAB PO SCH (21:33)
[2018-05-14] MEDS: CLOPIDOGREL 75 MG TAB PO SCH (21:34)
[2018-05-14 22:02] LABS: Glucose,Whole Blood 115 mg/dL (75-99)
--- NOTE | 2018-05-14 22:13 | CONS ---
CONSULTATION DATE OF CONSULTATION: 05/14/2018 REASON FOR CONSULTATION: Medical management requested by Dr. Bridges. CONSULTATION: This is a pleasant 62-year-old patient of Dr. Mathieu Marin. Chronic stable medical conditions include GERD, hypertension, hyperlipidemia. In the summer, patient was traveling to [place] and just did not feel right after activities, tired and rundown. Patient eventually ended up getting a cardiac catheterization and was found to have significant coronary artery disease. He underwent coronary bypass today. He was extubated after 2 hours. The patient has a pleural tube and a mediastinal chest tube. The patient has IV drips that include Cleviprex, nitroglycerin, insulin. Patient is on 2 L of oxygen and telemetry shows sinus rhythm. Patient is awake and communicating. REVIEW OF SYSTEMS: CONSTITUTIONAL: Tired. HEENT: None. RESPIRATORY: None. CARDIOVASCULAR: As above. GASTROINTESTINAL: Heartburn. GENITOURINARY: None. MUSCULOSKELETAL: None. DERMATOLOGICAL: None. HEMATOLOGICAL: None. LYMPHATICS: None. PSYCHIATRY: None. NEUROLOGICAL: None. PAST MEDICAL HISTORY: 1. GERD. 2. Hypertension. 3. Hyperlipidemia. 4. Glaucoma. PAST SURGICAL HISTORY: 1. Cardiac catheterization. 2. Colonoscopy. 3. Injection for varicose vein. 4. Laser eye treatment for glaucoma. PSYCH HISTORY: Anxiety. 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 . Does not smoke. Alcohol occasionally. FAMILY HISTORY: Ovarian cancer and coronary artery disease. HOME MEDICATIONS: 1. Travatan Z 0.004% one drop to both eyes daily. 2. Nitrostat 0.4 mg sublingually q.5 p.r.n. 3. Rhopressa 1 drop to both eyes at bedtime. 4. Bactroban 2% one application nasally b.i.d. 5. Lopressor 25 mg b.i.d. 6. Imdur ER 30 mg p.o. daily. 7. Combigan 0.2% - 0.5% one drop to both eyes b.i.d. 8. Lipitor 40 mg p.o. daily. 9. Aspirin 81 mg at bedtime. ALLERGIES: NONE. PHYSICAL EXAMINATION: Temperature 99, pulse 87, respiration 18, blood pressure 141/70, pulse ox 93% on 2 L. GENERAL APPEARANCE: Average build, lying in bed, awake. EYES: Pupils equal. Conjunctivae normal. HEENT: External appearance of nose and ears normal. Oral cavity normal. NECK: JVD unable to assess. Mass not palpable. RESPIRATORY: Effort normal. LUNGS: Decreased breath sounds. CARDIOVASCULAR: First and second sounds normal. No edema. ABDOMEN: Soft, non-tender. Liver and spleen not palpable. PSYCHIATRY: Alert and oriented x3. Mood and affect normal. NEUROLOGICAL: Moving all 4 limbs. CHEST WALL: Patient has a pleural and a mediastinal chest tube. INVESTIGATIONS: White count 12.1, hemoglobin 12.8, platelets 137. Prior to that, hemoglobin was 10.8. ASSESSMENT: 1. Coronary artery bypass, status post, with a pleural and a mediastinal chest tube. 2. Gastroesophageal reflux disease. 3. Essential hypertension. 4. Hyperlipidemia. 5. Acute postoperative blood loss anemia, expected from surgery. 6. Dilutional thrombocytopenia. PLAN: Patient is currently on IV Cleviprex, nitroglycerin, insulin. Sinus rhythm, on oxygen 2 L. Other medications are to be continued. Patient is status post extubation, doing well. Other medications are noted. Thank you, Dr. Bridges. MMODL / IJN: [id number] /
[2018-05-14 23:12] LABS: Glucose,Whole Blood 107 mg/dL (75-99)
[2018-05-15] LABS: Glucose,Whole Blood 111 mg/dL (75-99)
[2018-05-15 01:04] LABS: Glucose,Whole Blood 113 mg/dL (75-99)
[2018-05-15 02:08] LABS: Glucose,Whole Blood 110 mg/dL (75-99)
[2018-05-15 03:12] LABS: Glucose,Whole Blood 119 mg/dL (75-99)
[2018-05-15 04:24] LABS: Glucose,Whole Blood 108 mg/dL (75-99)
[2018-05-15 05:06] LABS: Basophils % (A) 0 %; Eosinophils % (A) 0 %; HGB 12.5 gm/dL (13.0-17.5); Lymphocytes # (A) 0.9 k/uL (1.0-4.8); Lymphocytes % (A) 10 %; MCH 29.9 pg (25.0-35.0); MCHC 32.1 g/dL (31.0-37.0); MCV 93.4 fL (80.0-100.0); Mean Platelet Volume 8.1; Monocytes # (A) 0.5 k/uL (0-1.0); Monocytes % (A) 6 %; Neutrophils # (A) 7.4 k/uL (1.3-7.7); Neutrophils % (A) 83 %; Platelet Count 143 k/uL (150-450); RBC 4.17 m/uL (4.30-5.90); RDW 13.1 % (11.5-15.5)
[2018-05-15] MEDS: KETOROLAC 30 MG/ML 1 ML VIAL IVP PRN (05:13)
[2018-05-15 05:15] LABS: Partial Thromboplastin Time 24.7 sec (22.0-30.0); Prothrombin Time 10.7 sec (9.0-12.0)
[2018-05-15 05:26] LABS: Ionized Calcium 4.9 mg/dL (4.5-5.3)
[2018-05-15 05:33] LABS: ALT 33 U/L (21-72); AST 26 U/L (17-59); Albumin 3.9 g/dL (3.5-5.0); Alkaline Phosphatase 62 U/L (38-126); Anion Gap 7 mmol/L; Blood Urea Nitrogen 9 mg/dL (9-20); Calcium 8.6 mg/dL (8.4-10.2); Carbon Dioxide 24 mmol/L (22-30); Chloride 104 mmol/L (98-107); Glucose 119 mg/dL (74-99); Potassium 4.6 mmol/L (3.5-5.1); Sodium 135 mmol/L (137-145); Total Bilirubin 1.2 mg/dL (0.2-1.3)
[2018-05-15 05:55] LABS: Glucose,Whole Blood 117 mg/dL (75-99)
[2018-05-15] MEDS: ACETAMINOPHEN IV (For NPO) 1,000 MG in EMPTY BAG 1 BAG IVPB SCH ×3 (06:25→17:36)
[2018-05-15 07:04] LABS: Glucose,Whole Blood 113 mg/dL (75-99)
--- NOTE | 2018-05-15 07:49 | P.PN ---
Subjective Progress Note Date: 05/15/18 Principal diagnosis: Double vessel coronary artery disease with total occlusion of his left anterior descending artery and the right coronary artery, overall preserved left ventricular function, hypertension, hyperlipidemia, status post bilateral ultrasound ablation of the right greater saphenous vein systems. Family history of premature coronary artery disease. EtOH use 2-7 drinks per week. Preoperative nasal swab positive for MSSA. POD #1 total arterial off-pump double coronary artery bypass grafting using the left internal mammary artery to the distal left anterior descending artery at the patch angioplasty, the left radial artery connected to the aorta using the heartstring 3 device and connected distally to the distal right coronary artery , proximal posterior descending artery area. Endoscopic harvesting of the left radial artery. Intraoperative transesophageal echocardiogram and epi-aortic scanning. Intraoperative graft flow measurements using the GMI Ratings system. The patient is currently sitting up in a recliner in the intensive care unit in no acute distress. He was successfully extubated yesterday at 16:09. He does complain of mild incisional pain which is controlled on current medication regimen. He denies any shortness of breath. He is hemodynamically stable on no inotropes or pressors. He is coughing and deep breathing effectively with incentive spirometry use up to 1250 mL. No new complaints. Objective - Vital Signs Vital signs: Vital Signs Temp 99.1 F 05/15/18 00:00 Pulse 64 05/15/18 07:00 Resp 12 05/15/18 07:00 BP 136/84 05/14/18 06:09 Pulse Ox 100 05/15/18 07:00 Intake & Output 05/14/18 05/15/18 05/15/18 18:59 06:59 18:59 Intake Total 434.786 4955.709 Output Total 2340 2090 Balance -1524.389 -703.291 Intake: IV 139 1097 ACETAMINOPHEN IV (For NPO 100 ) 1,000 mg In Empty Bag 1 bag @ 400 mls/hr IVPB Q6HR [facility] Rx#:[id number] Lactated Ringers 1,000 ml 600 @ 50 mls/hr IV .Q20H [facility]ARRU[facility] Rx#:[id number] cardiac output 70 280 pressure bag 36 117 Intake, IV Titration 676.611 129.709 Amount ACETAMINOPHEN IV (For NPO 100 ) 1,000 mg In Empty Bag 1 bag @ 400 mls/hr IVPB Q6HR [facility]ARRU[facility] Rx#:[id number] Calcium Chloride 1,000 mg 100 In Sodium Chloride 0.9% 100 ml @ 100 mls/hr IV ONCE PRN Rx#:[id number] Clevidipine Butyrate 25 63.134 75.266 mg In Empty Bag 1 bag @ 1 MG/HR 2 mls/hr IV .Q24H [facility]ARRU[facility] Rx#:[id number] Insulin Regular 100 unit 4.443 In Sodium Chloride 0.9% 100 ml @ Per Protocol IV .Q0M [facility] Rx#:[id number] Lactated Ringers 1,000 ml 200 50 @ 50 mls/hr IV .Q20H [facility] Rx#:[id number] Magnesium Sulfate-D5w Pmx 200 1 gm In Dextrose/Water 1 100ml.bag @ 100 mls/hr IVPB Q1H [facility] Rx#: [id number] Propofol 1,000 mg In 13.477 Empty Bag 1 bag @ Titrate IV .Q0M [facility]ARRU[facility] Rx#: [id number] Oral 160 Output: Chest Tube Drainage 525 440 left pleural chest tube 190 270 mediastinal 335 170 Drainage 20 Left Wrist 20 Urine 795 1650 Estimated Blood Loss 1000 Other: Voiding Method Indwelling Catheter Indwelling Catheter ABP, PAP, CO, CI - Last Documented Arterial Blood Pressure 112/59 Pulmonary Artery Pressure 26/13 Cardiac Output 6 Cardiac Index 2.8 - Constitutional General appearance: Present: cooperative, no acute distress - Respiratory Details: Lungs sounds clear but slightly diminished in the bases bilaterally. Respirations even, nonlabored. Currently on 2 L nasal cannula with oxygen saturation 98%. Able to achieve 1250 mL on his incentive spirometry. Strong effective cough. Mediastinal chest tube to continuous wall suction, 90 mL serosanguineous drainage overnight, 400 mL since surgery. Left pleural chest tube to continuous wall suction, 220 mL serosanguineous drainage overnight, 600 mL since surgery. No air leaks present. - Cardiovascular Details: S1, S2 present. Regular rate and rhythm, sinus rhythm on telemetry. Sternum stable. Palpable peripheral pulses bilaterally. No edema present. No calf pain or tenderness noted. Right internal jugular Elizabeth/Cordis, right radial arterial line present, last CO/CI 6.0/2.8 on no inotropes or pressors. Heart hugger in place with patient demonstrating appropriate use. Antiembolism stockings, SCDs present. - Gastrointestinal Gastrointestinal Comment(s): Abdomen soft, nontender, nondistended. Hypoactive bowel sounds present 4 quadrants. Tolerating clear liquids. Positive flatus. - Genitourinary Genitourinary Comment(s): Baker present draining clear, yellow urine. Output 70-2 25 mL/h overnight, 850 mL in the last 8 hours. - Integumentary Integumentary Comment(s): Skin is warm and dry with evidence of good perfusion. Anterior chest incision well approximated and covered with dry intact dressing. Left radial artery harvest site well approximated, FELICITA drain present with minimal serosanguineous drainage. - Neurologic Neurologic: Present: CNII-XII intact - Musculoskeletal Musculoskeletal: Present: strength equal bilaterally - Psychiatric Psychiatric: Present: A&O x's 3, appropriate affect, intact judgment & insight - Allied health notes Allied health notes reviewed: nursing - Labs CBC & Chem 7: 05/15/18 04:50 05/15/18 04:50 Labs: Abnormal Lab Results - Last 24 Hours (Table) 05/07/18 05/14/18 05/14/18 Range/Units 10:40 08:41 10:23 WBC (3.8-10.6) k/uL RBC (4.30-5.90) m/uL Hgb (13.0-17.5) gm/dL Hct (39.0-53.0) % Plt Count (150-450) k/uL Neutrophils # (1.3-7.7) k/uL Lymphocytes # (1.0-4.8) k/uL APTT (22.0-30.0) sec ABG pH 7.46 H (7.35-7.45) ABG pO2 >420 H 320 H (83-108) mmHg ABG Total CO2 26 H 26 H (19-24) mmol/L ABG O2 Saturation 100.0 H 100.0 H (94-97) % ABG Hematocrit (34.0-46.0) % ABG Ionized Calcium (4.5-5.3) mg/dL ABG Glucose 101 H 106 H (75-99) mg/dL Hemoglobin 12.0 L (13.0-17.5) gm/dL Sodium (137-145) mmol/L Chloride (98-107) mmol/L Creatinine (0.66-1.25) mg/dL Glucose (74-99) mg/dL POC Glucose (mg/dL) (75-99) mg/dL Calcium (8.4-10.2) mg/dL Total Protein (6.3-8.2) g/dL Albumin (3.5-5.0) g/dL Arterial Blood Glucose 101 H 106 H (75-99) mg/dL Crossmatch See Detail 05/14/18 05/14/18 05/14/18 Range/Units 10:48 11:11 11:34 WBC (3.8-10.6) k/uL RBC (4.30-5.90) m/uL Hgb (13.0-17.5) gm/dL Hct (39.0-53.0) % Plt Count (150-450) k/uL Neutrophils # (1.3-7.7) k/uL Lymphocytes # (1.0-4.8) k/uL APTT (22.0-30.0) sec ABG pH (7.35-7.45) ABG pO2 351 H 341 H 351 H (83-108) mmHg ABG Total CO2 26 H 25 H 25 H (19-24) mmol/L ABG O2 Saturation 100.0 H 100.0 H 100.0 H (94-97) % ABG Hematocrit (34.0-46.0) % ABG Ionized Calcium 4.4 L 4.4 L (4.5-5.3) mg/dL ABG Glucose 102 H 104 H 104 H (75-99) mg/dL Hemoglobin 11.4 L 11.2 L 11.2 L (13.0-17.5) gm/dL Sodium (137-145) mmol/L Chloride (98-107) mmol/L Creatinine (0.66-1.25) mg/dL Glucose (74-99) mg/dL POC Glucose (mg/dL) (75-99) mg/dL Calcium (8.4-10.2) mg/dL Total Protein (6.3-8.2) g/dL Albumin (3.5-5.0) g/dL Arterial Blood Glucose 102 H 104 H 104 H (75-99) mg/dL Crossmatch 05/14/18 05/14/18 05/14/18 Range/Units 11:56 12:38 12:55 WBC (3.8-10.6) k/uL RBC (4.30-5.90) m/uL Hgb (13.0-17.5) gm/dL Hct (39.0-53.0) % Plt Count (150-450) k/uL Neutrophils # (1.3-7.7) k/uL Lymphocytes # (1.0-4.8) k/uL APTT (22.0-30.0) sec ABG pH (7.35-7.45) ABG pO2 346 H 330 H 363 H (83-108) mmHg ABG Total CO2 25 H 25 H (19-24) mmol/L ABG O2 Saturation 100.0 H 100.0 H 100.0 H (94-97) % ABG Hematocrit 33 L 32 L (34.0-46.0) % ABG Ionized Calcium 4.4 L 4.4 L 4.4 L (4.5-5.3) mg/dL ABG Glucose 103 H 101 H (75-99) mg/dL Hemoglobin 11.2 L 10.6 L 10.5 L (13.0-17.5) gm/dL Sodium (137-145) mmol/L Chloride (98-107) mmol/L Creatinine (0.66-1.25) mg/dL Glucose (74-99) mg/dL POC Glucose (mg/dL) (75-99) mg/dL Calcium (8.4-10.2) mg/dL Total Protein (6.3-8.2) g/dL Albumin (3.5-5.0) g/dL Arterial Blood Glucose 103 H 101 H (75-99) mg/dL Crossmatch 05/14/18 05/14/18 05/14/18 Range/Units 14:15 14:15 14:15 WBC (3.8-10.6) k/uL RBC 3.53 L (4.30-5.90) m/uL Hgb 10.8 L D (13.0-17.5) gm/dL Hct 33.3 L (39.0-53.0) % Plt Count 115 L (150-450) k/uL Neutrophils # (1.3-7.7) k/uL Lymphocytes # (1.0-4.8) k/uL APTT 33.4 H (22.0-30.0) sec ABG pH (7.35-7.45) ABG pO2 (83-108) mmHg ABG Total CO2 (19-24) mmol/L ABG O2 Saturation (94-97) % ABG Hematocrit (34.0-46.0) % ABG Ionized Calcium (4.5-5.3) mg/dL ABG Glucose (75-99) mg/dL Hemoglobin (13.0-17.5) gm/dL Sodium (137-145) mmol/L Chloride 110 H (98-107) mmol/L Creatinine 0.63 L (0.66-1.25) mg/dL Glucose (74-99) mg/dL POC Glucose (mg/dL) (75-99) mg/dL Calcium 7.8 L (8.4-10.2) mg/dL Total Protein 5.2 L (6.3-8.2) g/dL Albumin 3.3 L (3.5-5.0) g/dL Arterial Blood Glucose (75-99) mg/dL Crossmatch 05/14/18 05/14/18 05/14/18 Range/Units 14:16 16:18 17:09 WBC 13.0 H (3.8-10.6) k/uL RBC 4.09 L (4.30-5.90) m/uL Hgb 12.7 L (13.0-17.5) gm/dL Hct (39.0-53.0) % Plt Count (150-450) k/uL Neutrophils # 10.8 H (1.3-7.7) k/uL Lymphocytes # (1.0-4.8) k/uL APTT (22.0-30.0) sec ABG pH (7.35-7.45) ABG pO2 (83-108) mmHg ABG Total CO2 (19-24) mmol/L ABG O2 Saturation (94-97) % ABG Hematocrit (34.0-46.0) % ABG Ionized Calcium (4.5-5.3) mg/dL ABG Glucose (75-99) mg/dL Hemoglobin (13.0-17.5) gm/dL Sodium (137-145) mmol/L Chloride (98-107) mmol/L Creatinine (0.66-1.25) mg/dL Glucose (74-99) mg/dL POC Glucose (mg/dL) 104 H 121 H (75-99) mg/dL Calcium (8.4-10.2) mg/dL Total Protein (6.3-8.2) g/dL Albumin (3.5-5.0) g/dL Arterial Blood Glucose (75-99) mg/dL Crossmatch 05/14/18 05/14/18 05/14/18 Range/Units 17:09 18:04 19:05 WBC (3.8-10.6) k/uL RBC (4.30-5.90) m/uL Hgb (13.0-17.5) gm/dL Hct (39.0-53.0) % Plt Count (150-450) k/uL Neutrophils # (1.3-7.7) k/uL Lymphocytes # (1.0-4.8) k/uL APTT (22.0-30.0) sec ABG pH (7.35-7.45) ABG pO2 (83-108) mmHg ABG Total CO2 (19-24) mmol/L ABG O2 Saturation (94-97) % ABG Hematocrit (34.0-46.0) % ABG Ionized Calcium (4.5-5.3) mg/dL ABG Glucose (75-99) mg/dL Hemoglobin (13.0-17.5) gm/dL Sodium (137-145) mmol/L Chloride (98-107) mmol/L Creatinine (0.66-1.25) mg/dL Glucose (74-99) mg/dL POC Glucose (mg/dL) 120 H 127 H 126 H (75-99) mg/dL Calcium (8.4-10.2) mg/dL Total Protein (6.3-8.2) g/dL Albumin (3.5-5.0) g/dL Arterial Blood Glucose (75-99) mg/dL Crossmatch 05/14/18 05/14/18 05/14/18 Range/Units 19:46 19:47 20:53 WBC 12.1 H (3.8-10.6) k/uL RBC 4.04 L (4.30-5.90) m/uL Hgb 12.8 L (13.0-17.5) gm/dL Hct 38.6 L (39.0-53.0) % Plt Count 137 L (150-450) k/uL Neutrophils # 11.1 H (1.3-7.7) k/uL Lymphocytes # 0.3 L (1.0-4.8) k/uL APTT (22.0-30.0) sec ABG pH (7.35-7.45) ABG pO2 (83-108) mmHg ABG Total CO2 (19-24) mmol/L ABG O2 Saturation (94-97) % ABG Hematocrit (34.0-46.0) % ABG Ionized Calcium (4.5-5.3) mg/dL ABG Glucose (75-99) mg/dL Hemoglobin (13.0-17.5) gm/dL Sodium (137-145) mmol/L Chloride (98-107) mmol/L Creatinine (0.66-1.25) mg/dL Glucose (74-99) mg/dL POC Glucose (mg/dL) 132 H 125 H (75-99) mg/dL Calcium (8.4-10.2) mg/dL Total Protein (6.3-8.2) g/dL Albumin (3.5-5.0) g/dL Arterial Blood Glucose (75-99) mg/dL Crossmatch 05/14/18 05/14/18 05/14/18 Range/Units 21:51 23:00 23:49 WBC (3.8-10.6) k/uL RBC (4.30-5.90) m/uL Hgb (13.0-17.5) gm/dL Hct (39.0-53.0) % Plt Count (150-450) k/uL Neutrophils # (1.3-7.7) k/uL Lymphocytes # (1.0-4.8) k/uL APTT (22.0-30.0) sec ABG pH (7.35-7.45) ABG pO2 (83-108) mmHg ABG Total CO2 (19-24) mmol/L ABG O2 Saturation (94-97) % ABG Hematocrit (34.0-46.0) % ABG Ionized Calcium (4.5-5.3) mg/dL ABG Glucose (75-99) mg/dL Hemoglobin (13.0-17.5) gm/dL Sodium (137-145) mmol/L Chloride (98-107) mmol/L Creatinine (0.66-1.25) mg/dL Glucose (74-99) mg/dL POC Glucose (mg/dL) 115 H 107 H 111 H (75-99) mg/dL Calcium (8.4-10.2) mg/dL Total Protein (6.3-8.2) g/dL Albumin (3.5-5.0) g/dL Arterial Blood Glucose (75-99) mg/dL Crossmatch 05/15/18 05/15/18 05/15/18 Range/Units 00:52 01:56 03:01 WBC (3.8-10.6) k/uL RBC (4.30-5.90) m/uL Hgb (13.0-17.5) gm/dL Hct (39.0-53.0) % Plt Count (150-450) k/uL Neutrophils # (1.3-7.7) k/uL Lymphocytes # (1.0-4.8) k/uL APTT (22.0-30.0) sec ABG pH (7.35-7.45) ABG pO2 (83-108) mmHg ABG Total CO2 (19-24) mmol/L ABG O2 Saturation (94-97) % ABG Hematocrit (34.0-46.0) % ABG Ionized Calcium (4.5-5.3) mg/dL ABG Glucose (75-99) mg/dL Hemoglobin (13.0-17.5) gm/dL Sodium (137-145) mmol/L Chloride (98-107) mmol/L Creatinine (0.66-1.25) mg/dL Glucose (74-99) mg/dL POC Glucose (mg/dL) 113 H 110 H 119 H (75-99) mg/dL Calcium (8.4-10.2) mg/dL Total Protein (6.3-8.2) g/dL Albumin (3.5-5.0) g/dL Arterial Blood Glucose (75-99) mg/dL Crossmatch 05/15/18 05/15/18 05/15/18 Range/Units 04:12 04:50 04:50 WBC (3.8-10.6) k/uL RBC 4.17 L (4.30-5.90) m/uL Hgb 12.5 L (13.0-17.5) gm/dL Hct (39.0-53.0) % Plt Count 143 L (150-450) k/uL Neutrophils # (1.3-7.7) k/uL Lymphocytes # 0.9 L (1.0-4.8) k/uL APTT (22.0-30.0) sec ABG pH (7.35-7.45) ABG pO2 (83-108) mmHg ABG Total CO2 (19-24) mmol/L ABG O2 Saturation (94-97) % ABG Hematocrit (34.0-46.0) % ABG Ionized Calcium (4.5-5.3) mg/dL ABG Glucose (75-99) mg/dL Hemoglobin (13.0-17.5) gm/dL Sodium 135 L (137-145) mmol/L Chloride (98-107) mmol/L Creatinine 0.59 L (0.66-1.25) mg/dL Glucose 119 H (74-99) mg/dL POC Glucose (mg/dL) 108 H (75-99) mg/dL Calcium (8.4-10.2) mg/dL Total Protein 6.0 L (6.3-8.2) g/dL Albumin (3.5-5.0) g/dL Arterial Blood Glucose (75-99) mg/dL Crossmatch 05/15/18 05/15/18 Range/Units 05:44 06:53 WBC (3.8-10.6) k/uL RBC (4.30-5.90) m/uL Hgb (13.0-17.5) gm/dL Hct (39.0-53.0) % Plt Count (150-450) k/uL Neutrophils # (1.3-7.7) k/uL Lymphocytes # (1.0-4.8) k/uL APTT (22.0-30.0) sec ABG pH (7.35-7.45) ABG pO2 (83-108) mmHg ABG Total CO2 (19-24) mmol/L ABG O2 Saturation (94-97) % ABG Hematocrit (34.0-46.0) % ABG Ionized Calcium (4.5-5.3) mg/dL ABG Glucose (75-99) mg/dL Hemoglobin (13.0-17.5) gm/dL Sodium (137-145) mmol/L Chloride (98-107) mmol/L Creatinine (0.66-1.25) mg/dL Glucose (74-99) mg/dL POC Glucose (mg/dL) 117 H 113 H (75-99) mg/dL Calcium (8.4-10.2) mg/dL Total Protein (6.3-8.2) g/dL Albumin (3.5-5.0) g/dL Arterial Blood Glucose (75-99) mg/dL Crossmatch - Imaging and Cardiology Chest x-ray: image reviewed Assessment and Plan (1) Anxiety Current Visit: Yes Status: Chronic Code(s): F41.9 - ANXIETY DISORDER, UNSPECIFIED SNOMED Code(s): 48989582 (2) Coronary artery disease Current Visit: Yes Status: Chronic Code(s): I25.10 - ATHSCL HEART DISEASE OF [place] CORONARY ARTERY W/O ANG PCTRS SNOMED Code(s): 43005621 (3) Dyslipidemia Current Visit: Yes Status: Chronic Code(s): E78.5 - HYPERLIPIDEMIA, UNSPECIFIED SNOMED Code(s): 097675945 (4) Family history of premature coronary artery disease Current Visit: Yes Status: Chronic Code(s): Z82.49 - FAMILY HX OF [place] HEART DIS AND OTH DIS OF THE CIRC SYS SNOMED Code(s): 010793645 (5) GERD (gastroesophageal reflux disease) Current Visit: Yes Status: Chronic Code(s): K21.9 - GASTRO-ESOPHAGEAL REFLUX DISEASE WITHOUT ESOPHAGITIS SNOMED Code(s): 301381397 (6) Glaucoma Current Visit: Yes Status: Chronic Code(s): H40.9 - UNSPECIFIED GLAUCOMA SNOMED Code(s): 96959570 (7) Hypertension Current Visit: Yes Status: Chronic Code(s): I10 - ESSENTIAL (PRIMARY) HYPERTENSION SNOMED Code(s): 19131520 Plan: 1. Continue aspirin, statin, Plavix, beta rosaura therapy. Will increase beta rosaura therapy as tolerated. 2. Will start low-dose amlodipine for radial artery spasm. Will discontinue IV nitro after amlodipine given. 3. Wean O2 as tolerated. Encourage and some spirometry is 10 times every hour while awake. 4. Increase activity, ambulate in hallway. PT/OT/cardiac rehab following. 5. Bronchodilators per pulmonology. 6. Pain controlled current medication regimen. Toradol added. 7. Will monitor daily labs and x-rays. Electrolyte replacement per protocol. 8. Insulin management per primary care service. 9. GI prophylaxis with Protonix, DVT prophylaxis with subcu heparin, SCDs. 10. Continue nasal mupirocin, preoperative initial nasal swab positive for MSSA , repeat negative. 11. Discontinue Elizabeth. Connect Cordis to continuous CVP monitoring. 12. Likely will discontinue mediastinal chest tube today. Continue left pleural chest tube for another 24 hours. 13. More recommendations to follow. Time with Patient: Greater than 30
[2018-05-15] MEDS: HEPARIN SODIUM,PORCINE 5,000 UNIT/ML 1 ML VIAL SQ SCH ×2 (07:58→16:46)
[2018-05-15] MEDS: amLODIPine 2.5 MG TAB PO SCH (07:59)
[2018-05-15] MEDS: ASPIRIN 325 MG TAB PO SCH (07:59)
[2018-05-15] MEDS: CLOPIDOGREL 75 MG TAB PO SCH (07:59)
[2018-05-15] MEDS: ATORVASTATIN 40 MG TAB PO SCH (07:59)
--- NOTE | 2018-05-15 07:59 | XR ---
EXAMINATION TYPE: XR chest 1V portable DATE OF EXAM: 05/15/2018 COMPARISON: 05/14/2018 INDICATION: Postop cardiac surgery TECHNIQUE: Single frontal view of the chest is obtained. FINDINGS: The heart size is borderline in size. The pulmonary vasculature is normal. Some mild streak opacities are in the right lower lobe. Mild infiltrate may be in the retrocardiac re gion. This is worsening from comparison. Subcutaneous emphysema is along the lateral left chest. Chest tube is present. No pneumothorax is radha dent. Chest tube is been pulled back slightly from the comparison study. Nasogastric tube is been rem libby. [place] catheter remains present. IMPRESSION: 1. Worsening bibasilar infiltrates and retrocardiac infiltrate. Correlate for pneumonia. Atelectasis could be considered. 2. No pneumothorax. Chest tube remains in position.
[2018-05-15] MEDS: METOPROLOL TARTRATE 25 MG TAB PO SCH ×2 (08:00→21:06)
[2018-05-15] MEDS: ceFAZolin IN SWFI 2 GM/20 ML SYRINGE IVP SCH (08:22)
[2018-05-15 08:23] LABS: Glucose,Whole Blood 136 mg/dL (75-99)
[2018-05-15] MEDS ORDERED: CLOPIDOGREL 75 MG TAB PO SCH (09:00)
[2018-05-15] MEDS ORDERED: PANTOPRAZOLE 40 MG/10 ML VIAL IVP SCH (09:00)
[2018-05-15] MEDS ORDERED: METOPROLOL TARTRATE 12.5 MG TAB PO SCH (09:00)
[2018-05-15] MEDS ORDERED: ASPIRIN 325 MG TAB PO SCH (09:00)
[2018-05-15 09:19] LABS: Glucose,Whole Blood 122 mg/dL (75-99)
[2018-05-15] MEDS: MUPIROCIN 2% OINT 22 GM TUBE NASAL SCH ×2 (09:46→21:06)
[2018-05-15] MEDS: BRIMONIDINE TARTRATE 0.2% DROPS 5 ML BTL BOTH EYES SCH ×2 (09:48→20:59)
[2018-05-15] MEDS: TIMOLOL 0.5% OPHTH DROPS 5 ML BTL BOTH EYES SCH ×2 (09:49→21:00)
[2018-05-15] MEDS: LACTATED RINGERS 1,000 ML IV SCH (09:52)
[2018-05-15 10:31] LABS: Glucose,Whole Blood 144 mg/dL (75-99)
[2018-05-15 11:34] VITALS: BMI 25.7
[2018-05-15 12:13] LABS: Glucose,Whole Blood 110 mg/dL (75-99)
[2018-05-15] MEDS: INSULIN ASPART 100 UNIT/ML 1 ML 10 ML VIAL SQ SCH ×3 (13:02→21:00)
--- NOTE | 2018-05-15 13:15 | CONS ---
CONSULTATION Mr. Delaney is a 62-year-old gentleman with history of coronary artery disease who was brought in electively for bypass surgery. He has history of hypertension and dyslipidemia, and presented with tiredness and fatigue and underwent cardiac catheterization that showed significant coronary artery disease including chronic occlusion of the proximal LAD and proximal right with moderate disease involving distal left circumflex coronary artery with extensive collaterals and a mildly impaired LV function. This morning patient is postop day #1, extubated, remains in sinus rhythm and hemodynamically stable. PAST MEDICAL HISTORY: Past medical history is significant for coronary artery disease, dyslipidemia. MEDICATIONS: Medications at home included Lopressor 25 b.i.d., Imdur 30 q. daily, Lipitor 40 q. daily and aspirin. ALLERGIES: There are no known drug allergies. FAMILY HISTORY: Family history is negative for premature coronary artery disease. SOCIAL HISTORY: Social history is negative for smoking, EtOH abuse or drug abuse. REVIEW OF SYSTEMS: HEENT is unremarkable. CARDIAC: As described above. RESPIRATORY: As described above. GI: Negative. GENITOURINARY: Negative. ALLERGY/IMMUNOLOGY: Negative. SKIN: Negative. MUSCULOSKELETAL: Negative. ENDOCRINE: Negative. HEMATOLOGICAL: Negative. DERM: Negative. CONSTITUTIONAL: Negative. Oncological: Negative. Rest of the system review is not relevant. PHYSICAL EXAMINATION: On exam, heart rate is 60 beats per minute, blood pressure is 118/76, respiratory rate is 18, O2 sat is 98%. There is no jugular venous distention. Carotid upstroke is normal. There is no bruit. Chest exam reveals diminished air entry at the bases. Heart exam reveals first and second heart sounds. No gallop. I do not hear any rub. Abdomen is soft. Examination of the extremities did not reveal edema. Peripheral pulses are felt. LABS: Labs show that potassium is 4.6 creatinine is 0.59. CBC shows a hemoglobin of 12.5, platelet count is 143. EKG, they do not have an EKG from this morning. Rhythm strip showed that he is in sinus rhythm. Three-vessel coronary artery disease, status post CABG postop day #1. The patient is doing well. He is on Lipitor, aspirin, Plavix and Lopressor 25 b.i.d. which he is going to continue. MMODL / IJN: [id number] /
[2018-05-15] MEDS ORDERED: MAGNESIUM HYDROXIDE 2,400 MG/10 ML CUP PO PRN (13:45)
[2018-05-15] MEDS ORDERED: BISACODYL 10 MG SUPP RECTAL PRN (13:45)
--- NOTE | 2018-05-15 14:03 | P.PN ---
Subjective Progress Note Date: 05/15/18 On 05/15/2018, the patient has extubated and the patient is doing extremely well. The patient underwent coronary artery bypass surgery with 2 vessel bypass and the patient is postop day #1. Note that the patient was weaned off the mechanical ventilator and the patient was extubated without any major difficulties with some few hours after he arrived to the intensive care unit. The patient has undergone and off vomiting double bypass surgery. Hemodynamically has remained stable. Chest is were removed. Strandquist-Kimberly catheter was also removed. The cordis is still in place. He is using incentive spirometer and he is pulling approximately 1250 mL. He is producing good urine output. No nausea. No vomiting. No abdominal pain. No chest pain. No altered mentation. Family is at the bedside. He is afebrile for now. Note that since his arrival from the operating room, the patient produced approximately 270 mL from left-sided chest tube and 170 mL from the mediastinal chest tube and based on that was used for removed. Earlier this morning, the pulmonary artery pressures were 26/13 with a cardiac index of 2.8. Objective - Vital Signs Vital signs: Vital Signs Temp 99.1 F 05/15/18 00:00 Pulse 61 05/15/18 11:00 Resp 5 L 05/15/18 11:00 BP 118/76 05/15/18 11:00 Pulse Ox 98 05/15/18 11:00 Intake & Output 05/14/18 05/15/18 05/15/18 18:59 06:59 18:59 Intake Total 756.580 9113.709 889.25 Output Total 2340 2090 205 Balance -1524.389 -703.291 684.25 Weight 92.27 kg Intake: IV 139 1097 191 ACETAMINOPHEN IV (For NPO 100 ) 1,000 mg In Empty Bag 1 bag @ 400 mls/hr IVPB Q6HR [facility] Rx#:[id number] Lactated Ringers 1,000 ml 600 130 @ 20 mls/hr IV .Q24H [facility]ARRU[facility] Rx#:[id number] cardiac output 70 280 40 pressure bag 36 117 21 Intake, IV Titration 676.611 129.709 28.25 Amount ACETAMINOPHEN IV (For NPO 100 ) 1,000 mg In Empty Bag 1 bag @ 400 mls/hr IVPB Q6HR [facility]ARRU[facility] Rx#:[id number] Calcium Chloride 1,000 mg 100 In Sodium Chloride 0.9% 100 ml @ 100 mls/hr IV ONCE PRN Rx#:[id number] Clevidipine Butyrate 25 63.134 75.266 mg In Empty Bag 1 bag @ 1 MG/HR 2 mls/hr IV .Q24H [facility]ARRU[facility] Rx#:[id number] Insulin Regular 100 unit 4.443 0 In Sodium Chloride 0.9% 100 ml @ Per Protocol IV .Q0M [facility]ARRU[facility] Rx#:[id number] Lactated Ringers 1,000 ml 200 50 @ 20 mls/hr IV .Q24H [facility]ARRU[facility] Rx#:[id number] Magnesium Sulfate-D5w Pmx 200 1 gm In Dextrose/Water 1 100ml.bag @ 100 mls/hr IVPB Q1H [facility] Rx#: [id number] Nitroglycerin-D5w Pmx 50 28.25 mg In Dextrose/Water 1 250ml.bag @ 5 MCG/MIN 1.5 mls/hr IV .Q24H [facility] Rx#: [id number] Propofol 1,000 mg In 13.477 Empty Bag 1 bag @ Titrate IV .Q0M [facility]ARRU[facility] Rx#: [id number] Oral 160 670 Output: Chest Tube Drainage 525 440 30 left pleural chest tube 190 270 0 mediastinal 335 170 30 Drainage 20 Left Wrist 20 Urine 795 1650 175 Estimated Blood Loss 1000 Other: Voiding Method Indwelling Catheter Indwelling Catheter Indwelling Catheter ABP, PAP, CO, CI - Last Documented Arterial Blood Pressure 131/63 Pulmonary Artery Pressure 25/13 Cardiac Output 6.9 Cardiac Index 3.2 - Exam - Constitutional General appearance: Present: cooperative, no acute distress - Respiratory Details: Lungs sounds clear but slightly diminished in the bases bilaterally. Respirations even, nonlabored. Currently on 2 L nasal cannula with oxygen saturation 98%. Able to achieve 1250 mL on his incentive spirometry. Strong effective cough. Mediastinal chest tube to continuous wall suction, 90 mL serosanguineous drainage overnight, 400 mL since surgery. Left pleural chest tube to continuous wall suction, 220 mL serosanguineous drainage overnight, 600 mL since surgery. No air leaks present. - Cardiovascular Details: S1, S2 present. Regular rate and rhythm, sinus rhythm on telemetry. Sternum stable. Palpable peripheral pulses bilaterally. No edema present. No calf pain or tenderness noted. Right internal jugular Strandquist/Cordis, right radial arterial line present, last CO/CI 6.0/2.8 on no inotropes or pressors. Heart hugger in place with patient demonstrating appropriate use. Antiembolism stockings, SCDs present. - Gastrointestinal Gastrointestinal Comment(s): Abdomen soft, nontender, nondistended. Hypoactive bowel sounds present 4 quadrants. Tolerating clear liquids. Positive flatus. - Genitourinary Genitourinary Comment(s): Baker present draining clear, yellow urine. Output 70-2 25 mL/h overnight, 850 mL in the last 8 hours. - Integumentary Integumentary Comment(s): Skin is warm and dry with evidence of good perfusion. Anterior chest incision well approximated and covered with dry intact dressing. Left radial artery harvest site well approximated, FELICITA drain present with minimal serosanguineous drainage. - Neurologic Neurologic: Present: CNII-XII intact - Musculoskeletal Musculoskeletal: Present: strength equal bilaterally - Psychiatric Psychiatric: Present: A&O x's 3, appropriate affect, intact judgment & insight - Labs CBC & Chem 7: 05/15/18 04:50 05/15/18 04:50 Labs: Abnormal Lab Results - Last 24 Hours (Table) 05/07/18 05/14/18 05/14/18 Range/Units 10:40 12:55 14:15 WBC (3.8-10.6) k/uL RBC 3.53 L (4.30-5.90) m/uL Hgb 10.8 L D (13.0-17.5) gm/dL Hct 33.3 L (39.0-53.0) % Plt Count 115 L (150-450) k/uL Neutrophils # (1.3-7.7) k/uL Lymphocytes # (1.0-4.8) k/uL APTT (22.0-30.0) sec ABG pO2 363 H (83-108) mmHg ABG Total CO2 25 H (19-24) mmol/L ABG O2 Saturation 100.0 H (94-97) % ABG Hematocrit 32 L (34.0-46.0) % ABG Ionized Calcium 4.4 L (4.5-5.3) mg/dL Hemoglobin 10.5 L (13.0-17.5) gm/dL Sodium (137-145) mmol/L Chloride (98-107) mmol/L Creatinine (0.66-1.25) mg/dL Glucose (74-99) mg/dL POC Glucose (mg/dL) (75-99) mg/dL Calcium (8.4-10.2) mg/dL Total Protein (6.3-8.2) g/dL Albumin (3.5-5.0) g/dL Crossmatch See Detail 05/14/18 05/14/18 05/14/18 Range/Units 14:15 14:15 14:16 WBC (3.8-10.6) k/uL RBC (4.30-5.90) m/uL Hgb (13.0-17.5) gm/dL Hct (39.0-53.0) % Plt Count (150-450) k/uL Neutrophils # (1.3-7.7) k/uL Lymphocytes # (1.0-4.8) k/uL APTT 33.4 H (22.0-30.0) sec ABG pO2 (83-108) mmHg ABG Total CO2 (19-24) mmol/L ABG O2 Saturation (94-97) % ABG Hematocrit (34.0-46.0) % ABG Ionized Calcium (4.5-5.3) mg/dL Hemoglobin (13.0-17.5) gm/dL Sodium (137-145) mmol/L Chloride 110 H (98-107) mmol/L Creatinine 0.63 L (0.66-1.25) mg/dL Glucose (74-99) mg/dL POC Glucose (mg/dL) 104 H (75-99) mg/dL Calcium 7.8 L (8.4-10.2) mg/dL Total Protein 5.2 L (6.3-8.2) g/dL Albumin 3.3 L (3.5-5.0) g/dL Crossmatch 05/14/18 05/14/18 05/14/18 Range/Units 16:18 17:09 17:09 WBC 13.0 H (3.8-10.6) k/uL RBC 4.09 L (4.30-5.90) m/uL Hgb 12.7 L (13.0-17.5) gm/dL Hct (39.0-53.0) % Plt Count (150-450) k/uL Neutrophils # 10.8 H (1.3-7.7) k/uL Lymphocytes # (1.0-4.8) k/uL APTT (22.0-30.0) sec ABG pO2 (83-108) mmHg ABG Total CO2 (19-24) mmol/L ABG O2 Saturation (94-97) % ABG Hematocrit (34.0-46.0) % ABG Ionized Calcium (4.5-5.3) mg/dL Hemoglobin (13.0-17.5) gm/dL Sodium (137-145) mmol/L Chloride (98-107) mmol/L Creatinine (0.66-1.25) mg/dL Glucose (74-99) mg/dL POC Glucose (mg/dL) 121 H 120 H (75-99) mg/dL Calcium (8.4-10.2) mg/dL Total Protein (6.3-8.2) g/dL Albumin (3.5-5.0) g/dL Crossmatch 05/14/18 05/14/18 05/14/18 Range/Units 18:04 19:05 19:46 WBC (3.8-10.6) k/uL RBC (4.30-5.90) m/uL Hgb (13.0-17.5) gm/dL Hct (39.0-53.0) % Plt Count (150-450) k/uL Neutrophils # (1.3-7.7) k/uL Lymphocytes # (1.0-4.8) k/uL APTT (22.0-30.0) sec ABG pO2 (83-108) mmHg ABG Total CO2 (19-24) mmol/L ABG O2 Saturation (94-97) % ABG Hematocrit (34.0-46.0) % ABG Ionized Calcium (4.5-5.3) mg/dL Hemoglobin (13.0-17.5) gm/dL Sodium (137-145) mmol/L Chloride (98-107) mmol/L Creatinine (0.66-1.25) mg/dL Glucose (74-99) mg/dL POC Glucose (mg/dL) 127 H 126 H 132 H (75-99) mg/dL Calcium (8.4-10.2) mg/dL Total Protein (6.3-8.2) g/dL Albumin (3.5-5.0) g/dL Crossmatch 05/14/18 05/14/18 05/14/18 Range/Units 19:47 20:53 21:51 WBC 12.1 H (3.8-10.6) k/uL RBC 4.04 L (4.30-5.90) m/uL Hgb 12.8 L (13.0-17.5) gm/dL Hct 38.6 L (39.0-53.0) % Plt Count 137 L (150-450) k/uL Neutrophils # 11.1 H (1.3-7.7) k/uL Lymphocytes # 0.3 L (1.0-4.8) k/uL APTT (22.0-30.0) sec ABG pO2 (83-108) mmHg ABG Total CO2 (19-24) mmol/L ABG O2 Saturation (94-97) % ABG Hematocrit (34.0-46.0) % ABG Ionized Calcium (4.5-5.3) mg/dL Hemoglobin (13.0-17.5) gm/dL Sodium (137-145) mmol/L Chloride (98-107) mmol/L Creatinine (0.66-1.25) mg/dL Glucose (74-99) mg/dL POC Glucose (mg/dL) 125 H 115 H (75-99) mg/dL Calcium (8.4-10.2) mg/dL Total Protein (6.3-8.2) g/dL Albumin (3.5-5.0) g/dL Crossmatch 05/14/18 05/14/18 05/15/18 Range/Units 23:00 23:49 00:52 WBC (3.8-10.6) k/uL RBC (4.30-5.90) m/uL Hgb (13.0-17.5) gm/dL Hct (39.0-53.0) % Plt Count (150-450) k/uL Neutrophils # (1.3-7.7) k/uL Lymphocytes # (1.0-4.8) k/uL APTT (22.0-30.0) sec ABG pO2 (83-108) mmHg ABG Total CO2 (19-24) mmol/L ABG O2 Saturation (94-97) % ABG Hematocrit (34.0-46.0) % ABG Ionized Calcium (4.5-5.3) mg/dL Hemoglobin (13.0-17.5) gm/dL Sodium (137-145) mmol/L Chloride (98-107) mmol/L Creatinine (0.66-1.25) mg/dL Glucose (74-99) mg/dL POC Glucose (mg/dL) 107 H 111 H 113 H (75-99) mg/dL Calcium (8.4-10.2) mg/dL Total Protein (6.3-8.2) g/dL Albumin (3.5-5.0) g/dL Crossmatch 05/15/18 05/15/18 05/15/18 Range/Units 01:56 03:01 04:12 WBC (3.8-10.6) k/uL RBC (4.30-5.90) m/uL Hgb (13.0-17.5) gm/dL Hct (39.0-53.0) % Plt Count (150-450) k/uL Neutrophils # (1.3-7.7) k/uL Lymphocytes # (1.0-4.8) k/uL APTT (22.0-30.0) sec ABG pO2 (83-108) mmHg ABG Total CO2 (19-24) mmol/L ABG O2 Saturation (94-97) % ABG Hematocrit (34.0-46.0) % ABG Ionized Calcium (4.5-5.3) mg/dL Hemoglobin (13.0-17.5) gm/dL Sodium (137-145) mmol/L Chloride (98-107) mmol/L Creatinine (0.66-1.25) mg/dL Glucose (74-99) mg/dL POC Glucose (mg/dL) 110 H 119 H 108 H (75-99) mg/dL Calcium (8.4-10.2) mg/dL Total Protein (6.3-8.2) g/dL Albumin (3.5-5.0) g/dL Crossmatch 05/15/18 05/15/18 05/15/18 Range/Units 04:50 04:50 05:44 WBC (3.8-10.6) k/uL RBC 4.17 L (4.30-5.90) m/uL Hgb 12.5 L (13.0-17.5) gm/dL Hct (39.0-53.0) % Plt Count 143 L (150-450) k/uL Neutrophils # (1.3-7.7) k/uL Lymphocytes # 0.9 L (1.0-4.8) k/uL APTT (22.0-30.0) sec ABG pO2 (83-108) mmHg ABG Total CO2 (19-24) mmol/L ABG O2 Saturation (94-97) % ABG Hematocrit (34.0-46.0) % ABG Ionized Calcium (4.5-5.3) mg/dL Hemoglobin (13.0-17.5) gm/dL Sodium 135 L (137-145) mmol/L Chloride (98-107) mmol/L Creatinine 0.59 L (0.66-1.25) mg/dL Glucose 119 H (74-99) mg/dL POC Glucose (mg/dL) 117 H (75-99) mg/dL Calcium (8.4-10.2) mg/dL Total Protein 6.0 L (6.3-8.2) g/dL Albumin (3.5-5.0) g/dL Crossmatch 05/15/18 05/15/18 05/15/18 Range/Units 06:53 08:11 09:06 WBC (3.8-10.6) k/uL RBC (4.30-5.90) m/uL Hgb (13.0-17.5) gm/dL Hct (39.0-53.0) % Plt Count (150-450) k/uL Neutrophils # (1.3-7.7) k/uL Lymphocytes # (1.0-4.8) k/uL APTT (22.0-30.0) sec ABG pO2 (83-108) mmHg ABG Total CO2 (19-24) mmol/L ABG O2 Saturation (94-97) % ABG Hematocrit (34.0-46.0) % ABG Ionized Calcium (4.5-5.3) mg/dL Hemoglobin (13.0-17.5) gm/dL Sodium (137-145) mmol/L Chloride (98-107) mmol/L Creatinine (0.66-1.25) mg/dL Glucose (74-99) mg/dL POC Glucose (mg/dL) 113 H 136 H 122 H (75-99) mg/dL Calcium (8.4-10.2) mg/dL Total Protein (6.3-8.2) g/dL Albumin (3.5-5.0) g/dL Crossmatch 05/15/18 05/15/18 Range/Units 10:19 12:01 WBC (3.8-10.6) k/uL RBC (4.30-5.90) m/uL Hgb (13.0-17.5) gm/dL Hct (39.0-53.0) % Plt Count (150-450) k/uL Neutrophils # (1.3-7.7) k/uL Lymphocytes # (1.0-4.8) k/uL APTT (22.0-30.0) sec ABG pO2 (83-108) mmHg ABG Total CO2 (19-24) mmol/L ABG O2 Saturation (94-97) % ABG Hematocrit (34.0-46.0) % ABG Ionized Calcium (4.5-5.3) mg/dL Hemoglobin (13.0-17.5) gm/dL Sodium (137-145) mmol/L Chloride (98-107) mmol/L Creatinine (0.66-1.25) mg/dL Glucose (74-99) mg/dL POC Glucose (mg/dL) 144 H 110 H (75-99) mg/dL Calcium (8.4-10.2) mg/dL Total Protein (6.3-8.2) g/dL Albumin (3.5-5.0) g/dL Crossmatch Assessment and Plan Plan: Assessment 1 coronary artery disease. The patient had a double vessel coronary artery disease and the patient underwent three-vessel bypass surgery, off pump with MARQUEZ to LAD and the radial artery graft to PDA. Postop day #1. The patient was weaned off the mechanical ventilator the patient was extubated without any major difficulties. This morning the patient is awake and alert. The patient is using incentive spirometer. The patient has the chest tubes removed. Hemodynamically stable. Hemodynamically parameters were all reviewed. Doing well and has no complains PA chest x-rays showing some limited atelectatic changes in lung bases bilaterally. 2 acute postthoracotomy respiratory failure, hypoxic, recovered and this is an expected outcome of surgery. The patient was weaned off the mechanical ventilator and the patient was extubated 3 hypertension 4 hyperlipidemia 5 glaucoma Plan The patient is doing very well. Strandquist-Kimberly catheter removed. Chest tubes removed. Using the incentive spirometer. Oxygenating well. Hemodynamically stable. Transferred this patient to telemetry.
[2018-05-15] MEDS: IPRATROPIUM-ALBUTEROL 3 ML NEB INHALATION SCH ×3 (15:21→21:16)
[2018-05-15 17:45] LABS: Glucose,Whole Blood 111 mg/dL (75-99)
[2018-05-15] MEDS: HYDROcodone/APAP 5-325MG 1 EACH TAB PO PRN (19:59)
[2018-05-15 20:44] LABS: Glucose,Whole Blood 103 mg/dL (75-99)
[2018-05-15] MEDS: LATANOPROST 0.005% OPHTH DROPS 2.5 ML BTL BOTH EYES SCH (21:00)
[2018-05-15] MEDS: SENNOSIDES-DOCUSATE SODIUM 1 EACH TAB PO SCH (21:06)
--- NOTE | 2018-05-15 22:12 | PN ---
PROGRESS NOTE DATE OF SERVICE: 05/15/2018 PRESENTING COMPLAINT: Coronary artery bypass. INTERVAL HISTORY: Patient is status post coronary artery bypass, really doing well. Patient has been up in the hallway. Did tolerate his diet. Made good urine. Breathing is better. is present. No chest pain. Telemetry shows sinus rhythm. REVIEW OF SYSTEMS: Done for constitutional, cardiovascular, GI, pulmonary; relevant findings as above. CURRENT MEDICATIONS: Reviewed. Patient did get IV amiodarone. Also on Plavix, Lopressor. PHYSICAL EXAMINATION: Temperature 98.7, pulse 73, respiration 16, blood pressure 104/64, pulse ox noted. GENERAL APPEARANCE: Sitting up in a chair, comfortable. EYES: Pupils equal. Conjunctivae normal. NECK: JVD not raised. Mass not palpable. RESPIRATORY: Effort normal. LUNGS: Diminished breath sounds. CARDIOVASCULAR: First and second sounds normal. No edema. ABDOMEN: Soft, non-tender. Liver and spleen not palpable. PSYCHIATRY: Alert and oriented x3. Mood and affect normal. INVESTIGATIONS: White count 9, hemoglobin 12.5, platelets 143, potassium 4.6. BUN and creatinine are normal. Accu-Cheks are noted. ASSESSMENT: 1. Coronary artery bypass, status post. 2. Gastroesophageal reflux disease. 3. Essential hypertension. 4. Hyperlipidemia. 5. Acute postoperative blood loss anemia, expected from surgery. 6. Dilutional thrombocytopenia. The patient has done remarkably well, is active, up and about. Continue current medication and treatment plan. Care was discussed with the patient and at the bedside. MMODL / IJN: [id number] /
[2018-05-15] MEDS ORDERED: HYDROcodone/APAP 5-325MG 1 EACH TAB PO PRN (23:01)
[2018-05-16] MEDS: HEPARIN SODIUM,PORCINE 5,000 UNIT/ML 1 ML VIAL SQ SCH ×3 (00:57→20:48)
[2018-05-16 05:46] LABS: Basophils % (A) 0 %; Eosinophils % (A) 0 %; HCT 37.4 % (39.0-53.0); HGB 11.9 gm/dL (13.0-17.5); Lymphocytes # (A) 0.9 k/uL (1.0-4.8); Lymphocytes % (A) 10 %; MCH 30.2 pg (25.0-35.0); MCHC 31.8 g/dL (31.0-37.0); Mean Platelet Volume 8.3; Monocytes # (A) 0.4 k/uL (0-1.0); Monocytes % (A) 5 %; Neutrophils # (A) 7.1 k/uL (1.3-7.7); Neutrophils % (A) 83 %; Platelet Count 128 k/uL (150-450); RBC 3.93 m/uL (4.30-5.90); RDW 13.2 % (11.5-15.5); WBC 8.6 k/uL (3.8-10.6)
[2018-05-16] MEDS: HYDROcodone/APAP 5-325MG 1 EACH TAB PO PRN ×3 (05:52→13:45)
[2018-05-16 05:54] LABS: Ionized Calcium 4.9 mg/dL (4.5-5.3)
[2018-05-16 05:59] LABS: ALT 32 U/L (21-72); AST 33 U/L (17-59); Albumin 3.5 g/dL (3.5-5.0); Alkaline Phosphatase 62 U/L (38-126); Anion Gap 5 mmol/L; Blood Urea Nitrogen 12 mg/dL (9-20); Calcium 8.6 mg/dL (8.4-10.2); Carbon Dioxide 27 mmol/L (22-30); Chloride 106 mmol/L (98-107); Glucose 108 mg/dL (74-99); Magnesium 1.8 mg/dL (1.6-2.3); Potassium 4.4 mmol/L (3.5-5.1); Sodium 138 mmol/L (137-145); Total Protein 5.8 g/dL (6.3-8.2)
--- NOTE | 2018-05-16 06:14 | XR ---
EXAMINATION TYPE: XR chest 1V portable DATE OF EXAM: 05/16/2018 HISTORY: Post Operative Cardiac Surgery. REFERENCE: Previous study dated 05/15/2018. FINDINGS: There has been a midline sternotomy. The patient Peshtigo-Kimberly catheter is been removed. The heart is enlarged. There are bibasilar infiltrates. There are small, bilateral effusions. IMPRESSION: 1. CARDIOMEGALY. 2. BIBASILAR INFILTRATES. 3. SMALL, BILATERAL EFFUSIONS.
[2018-05-16] MEDS: INSULIN ASPART 100 UNIT/ML 1 ML 10 ML VIAL SQ SCH ×4 (07:01→21:49)
[2018-05-16] MEDS: PANTOPRAZOLE 40 MG TABLET PO SCH (07:03)
[2018-05-16 07:11] LABS: Glucose,Whole Blood 117 mg/dL (75-99)
[2018-05-16] MEDS: IPRATROPIUM-ALBUTEROL 3 ML NEB INHALATION SCH ×4 (08:03→20:11)
[2018-05-16] MEDS: METOPROLOL TARTRATE 25 MG TAB PO SCH ×2 (09:10→20:56)
[2018-05-16] MEDS: ATORVASTATIN 40 MG TAB PO SCH (09:10)
[2018-05-16] MEDS: CLOPIDOGREL 75 MG TAB PO SCH (09:12)
[2018-05-16] MEDS: ASPIRIN 325 MG TAB PO SCH (09:12)
[2018-05-16] MEDS: MUPIROCIN 2% OINT 22 GM TUBE NASAL SCH ×2 (09:13→20:56)
[2018-05-16] MEDS: BRIMONIDINE TARTRATE 0.2% DROPS 5 ML BTL BOTH EYES SCH ×2 (09:26→20:58)
[2018-05-16] MEDS: TIMOLOL 0.5% OPHTH DROPS 5 ML BTL BOTH EYES SCH ×2 (09:26→20:57)
--- NOTE | 2018-05-16 09:58 | P.CRDCN ---
History of Present Illness Consult date: 05/16/18 Chief complaint: Status post CABG History of present illness: This is a pleasant 62-year-old gentleman who was admitted to the hospital yesterday and underwent CABG 2. He underwent MARQUEZ to LAD and radial artery to RCA. The patient underwent a heart catheterization recently and that revealed severe two-vessel coronary artery disease with chronic total occlusion of the LAD and chronic total occlusion of the right coronary artery and intermediate disease involving the left circumflex coronary artery. I'll follow-up with the patient today, he is doing very well. This is day #2 after surgery. He is having mild chest discomfort. Hemodynamically he continues to be stable. He is putting good urine output. The chest x-ray seems to be good. The patient has been maintaining normal sinus mechanism. He continues to be on dual antiplatelet therapy along with a statin as well as metoprolol. The patient is anticipated to be discharged home this coming Friday. Past Medical History Past Medical History: Coronary Artery Disease (CAD), Eye Disorder (Glaucoma), GERD/Reflux, Hyperlipidemia, Hypertension Additional Past Medical History / Comment(s): glaucoma, spells of lightheadedness. History of Any Multi-Drug Resistant Organisms: None Reported Past Surgical History: Heart Catheterization Additional Past Surgical History / Comment(s): Colonoscopy, injections and laser treatments to his bilateral lower extremities for varicose veins. Laser eye treatments for glaucoma. Past Anesthesia/Blood Transfusion Reactions: No Reported Reaction Additional Past Anesthesia/Blood Transfusion Reaction / Comment(s): Easily sedated. Smoking Status: Never smoker - Past Family History Mother Family Medical History: Cancer, Coronary Artery Disease (CAD) Additional Family Medical History / Comment(s): Ovarian Father Family Medical History: AFIB, Hypertension Additional Family Medical History / Comment(s): Hypertension and atrial fibrillation. Medications and Allergies Home Medications Medication Instructions Recorded Confirmed Type Brimonidine Tartrate/Timolol 1 drop BOTH EYES BID 07/05/16 05/14/18 History [Combigan 0.2%-0.5% Eye Drops] Travoprost [Travatan Z 0.004%] 1 drop BOTH EYES DAILY 07/05/16 05/14/18 History Netarsudil Mesylate [Rhopressa] 1 drop BOTH EYES HS 04/14/18 05/14/18 History Aspirin 81 mg PO HS 04/16/18 05/14/18 History Atorvastatin [Lipitor] 40 mg PO DAILY #90 tab 04/17/18 05/14/18 Rx Isosorbide Mononitrate ER [Imdur] 30 mg PO DAILY #30 tab.er.24h 04/17/18 Rx Metoprolol Tartrate [Lopressor] 25 mg PO BID #60 tab 04/17/18 05/14/18 Rx Nitroglycerin Sl Tabs [Nitrostat] 0.4 mg SUBLINGUAL Q5M PRN #25 tab 04/17/18 Rx Mupirocin 2% Oint [Bactroban 2% 1 applic NASAL BID 05/08/18 05/14/18 History Oint] Allergies Allergy/AdvReac Type Severity Reaction Status Date / Time No Known Allergies Allergy Verified 05/14/18 14:40 Physical Exam Vitals: Vital Signs Temp Pulse Resp BP Pulse Ox 05/16/18 08:14 89 05/16/18 08:03 88 05/16/18 07:00 130/75 05/16/18 06:31 130/75 05/16/18 06:00 81 26 H 130/75 94 L 05/16/18 05:30 79 18 130/75 05/16/18 05:00 73 16 120/74 95 05/16/18 04:30 71 18 120/74 05/16/18 04:00 98.5 F 71 18 117/72 96 05/16/18 03:30 72 22 117/72 05/16/18 03:00 72 18 118/72 95 05/16/18 02:30 71 19 118/72 05/16/18 02:00 67 17 123/77 96 05/16/18 01:30 69 15 123/77 95 05/16/18 01:00 68 22 107/67 94 L 05/16/18 00:30 66 14 107/67 05/16/18 00:00 98.9 F 70 21 104/65 95 05/15/18 23:30 72 19 104/65 05/15/18 23:13 15 104/65 05/15/18 23:00 69 22 113/69 94 L 05/15/18 22:30 72 15 113/69 05/15/18 22:00 72 18 116/79 95 01/18/19 21:30 70 16 116/79 94 L 05/15/18 21:00 71 20 126/82 95 05/15/18 20:30 70 21 126/82 95 05/15/18 20:00 99.1 F 74 15 108/72 96 05/15/18 19:30 74 14 108/72 05/15/18 19:00 74 25 H 110/75 05/15/18 18:30 80 20 110/75 05/15/18 18:00 78 26 H 102/69 05/15/18 17:30 80 17 102/69 05/15/18 17:00 74 28 H 104/64 05/15/18 16:30 73 21 104/64 05/15/18 16:00 98.7 F 73 43 H 104/64 05/15/18 15:34 97 05/15/18 15:30 66 16 104/64 100 05/15/18 15:22 96 05/15/18 15:00 71 20 92/59 95 05/15/18 14:30 62 16 92/59 95 05/15/18 14:00 61 15 107/82 95 05/15/18 13:30 66 36 H 107/82 97 05/15/18 13:10 97 05/15/18 13:00 66 30 H 126/77 96 05/15/18 12:30 68 30 H 126/77 95 05/15/18 12:00 98.8 F 63 32 H 115/70 94 L 05/15/18 11:30 63 10 L 115/70 98 05/15/18 11:00 61 5 L 118/76 98 05/15/18 10:30 62 11 L 114/72 98 05/15/18 10:00 66 22 114/72 97 Intake and Output 05/15/18 05/16/18 05/16/18 22:59 06:59 14:59 Intake Total 943 Output Total 625 450 Balance 318 -450 Intake: IV 23 Lactated Ringers 1,000 ml 20 @ 20 mls/hr IV .Q24H [facility] Rx#:[id number] cardiac output 0 pressure bag 3 Oral 920 Output: Chest Tube Drainage 200 left pleural chest tube 200 Urine 625 250 Other: Voiding Method Urinal Urinal Weight 87.7 kg ABP, PAP, CO, CI - Last 8 Hours Cardiac Output 6.9 Cardiac Output 6.9 - Constitutional General appearance: no acute distress - Respiratory Respiratory: bilateral: diminished - Cardiovascular Rhythm: regular Results 05/16/18 05:32 05/16/18 05:32 Cardiac Enzymes 05/16/18 Range/Units 05:32 AST 33 (17-59) U/L CBC 05/16/18 Range/Units 05:32 WBC 8.6 (3.8-10.6) k/uL RBC 3.93 L (4.30-5.90) m/uL Hgb 11.9 L (13.0-17.5) gm/dL Hct 37.4 L (39.0-53.0) % Plt Count 128 L (150-450) k/uL Comprehensive Metabolic Panel 05/16/18 Range/Units 05:32 Sodium 138 (137-145) mmol/L Potassium 4.4 (3.5-5.1) mmol/L Chloride 106 (98-107) mmol/L Carbon Dioxide 27 (22-30) mmol/L BUN 12 (9-20) mg/dL Creatinine 0.80 (0.66-1.25) mg/dL Glucose 108 H (74-99) mg/dL Calcium 8.6 (8.4-10.2) mg/dL AST 33 (17-59) U/L ALT 32 (21-72) U/L Alkaline Phosphatase 62 (38-126) U/L Total Protein 5.8 L (6.3-8.2) g/dL Albumin 3.5 (3.5-5.0) g/dL Current Medications Generic Name Dose Route Start Last Admin Trade Name Freq PRN Reason Stop Dose Admin Hydrocodone Bitart/Acetaminophen 2 each 05/15/18 23:01 [place] 5-325 PO Q4HR PRN Severe Pain Hydrocodone Bitart/Acetaminophen 1 each 05/15/18 23:01 05/16/18 09:11 [place] 5-325 PO 1 each Q4HR PRN Administration Moderate Pain Albuterol/Ipratropium 3 ml 05/14/18 14:02 Duoneb 0.5 Mg-3 Mg/3 Ml Soln INHALATION RT-Q2H PRN Shortness Of Breath Or Wheezing Albuterol/Ipratropium 3 ml 05/15/18 13:10 05/16/18 08:03 Duoneb 0.5 Mg-3 Mg/3 Ml Soln INHALATION 3 ml RT-QID [facility] Administration Amlodipine Besylate 2.5 mg 05/15/18 09:00 05/15/18 07:59 Norvasc PO 2.5 mg DAILY [facility] Administration Aspirin 325 mg 05/14/18 21:15 05/16/18 09:12 Aspirin PO 325 mg DAILY [facility] Administration Atorvastatin Calcium 40 mg 05/15/18 09:00 05/16/18 09:10 Lipitor PO 40 mg DAILY [facility] Administration Benzocaine/Menthol 1 each 05/14/18 14:02 Cepacol Lozenge MUCOUS MEM Q2H PRN Sore Throat Bisacodyl 10 mg 05/15/18 13:45 Dulcolax RECTAL DAILY PRN Constipation Brimonidine Tartrate 1 drops 05/14/18 21:00 05/16/18 09:26 Alphagan P 0.2% Ophth Soln BOTH EYES Not Given BID [facility] Clopidogrel Bisulfate 75 mg 05/14/18 21:07 05/16/18 09:12 Plavix PO 75 mg DAILY [facility] Administration Heparin Sodium (Porcine) 5,000 unit 05/14/18 21:45 05/16/18 09:10 Heparin SQ 5,000 unit Q8HR [facility] Administration Amiodarone HCl 150 mg/ 103 mls @ 618 mls/hr 05/14/18 14:02 Dextrose/Water IV .Q10M PRN Per protocol Protocol Amiodarone HCl 450 mg/ 259 mls @ 34.53 mls/hr 05/14/18 14:02 Dextrose/Water IV .Q7H31M PRN Per Protocol Protocol 1 MG/MIN Insulin Aspart 0 unit 05/15/18 12:30 05/16/18 07:01 Novolog SQ Not Given ACHS [facility] Protocol Ketorolac Tromethamine 15 mg 05/14/18 17:19 05/15/18 05:13 Toradol IVP 05/18/18 17:19 15 mg Q6HR PRN Administration Pain Latanoprost 1 drops 05/14/18 21:00 05/15/18 21:00 Xalatan 0.005% BOTH EYES Not Given HS [facility] Magnesium Hydroxide 2,400 mg 05/15/18 13:45 Milk Of Magnesia PO BID PRN Constipation Metoclopramide HCl 10 mg 05/14/18 14:02 Reglan IVP Q4H PRN Nausea And Vomiting Metoprolol Tartrate 25 mg 05/15/18 09:00 05/16/18 09:10 Lopressor PO 25 mg BID [facility] Administration Miscellaneous Information 1 each 05/14/18 14:02 Magnesium Per Protocol MISCELLANE DAILY PRN Per Protocol Protocol Miscellaneous Information 1 each 05/14/18 14:02 Phosphorus Per Protocol MISCELLANE DAILY PRN Per Protocol Protocol Miscellaneous Information 1 each 05/14/18 14:02 Potassium Per Protocol MISCELLANE DAILY PRN Per Protocol Protocol Mupirocin 1 applic 05/14/18 21:00 05/16/18 09:13 Bactroban Oint NASAL 05/17/18 21:01 1 applic BID [facility] Administration Ondansetron HCl 4 mg 05/14/18 14:02 Zofran IVP Q6HR PRN Nausea And Vomiting Pantoprazole Sodium 40 mg 05/16/18 07:30 05/16/18 07:03 Protonix PO 40 mg AC-BRKFST [facility] Administration Senna/Docusate Sodium 2 each 05/15/18 21:00 05/15/18 21:06 Senokot-S PO 2 each HS [facility] Administration Sodium Chloride 10 ml 05/14/18 21:00 05/16/18 09:12 Saline Flush IV 10 ml BID [facility] Administration Timolol Maleate 1 drops 05/14/18 21:00 05/16/18 09:26 Timoptic BOTH EYES Not Given BID [facility] Intake and Output 05/15/18 05/16/18 05/16/18 22:59 06:59 14:59 Intake Total 943 Output Total 625 450 Balance 318 -450 Intake: IV 23 Lactated Ringers 1,000 ml 20 @ 20 mls/hr IV .Q24H [facility] Rx#:[id number] cardiac output 0 pressure bag 3 Oral 920 Output: Chest Tube Drainage 200 left pleural chest tube 200 Urine 625 250 Other: Voiding Method Urinal Urinal Weight 87.7 kg 05/16/18 05:32 05/16/18 05:32 Assessment and Plan Assessment: Assessment #1 coronary artery disease and status post CABG 2 #2 hypertension #3 as to be tinea Plan #1 the patient is doing well clinically and hemodynamically #2 continue the current medical regimen including dual antiplatelet therapy and statin #3 follow-up with the patient
[2018-05-16] MEDS: amLODIPine 2.5 MG TAB PO SCH (10:36)
--- NOTE | 2018-05-16 11:50 | P.PN ---
Subjective Progress Note Date: 05/16/18 Principal diagnosis: Coronary artery disease status post coronary artery bypass grafting. The patient is seen today 05/16/2018 in follow-up in the intensive care unit. He is awake and alert in no acute distress. He is postoperative day #2. He is having some surgical chest wall discomfort otherwise doing well. He denies any worsening shortness of breath, cough or congestion. Maintaining good O2 saturations in the 90s on room air. He is working well with the incentive spirometer. Chest x-ray stable showing cardiomegaly and bibasilar infiltrates with small effusions. He is afebrile. White count 8.6. Hemoglobin 11.9. Creatinine 0.8. Objective - Vital Signs Vital signs: Vital Signs Temp 98.3 F 05/16/18 08:00 Pulse 89 05/16/18 08:14 Resp 18 05/16/18 08:00 BP 105/63 05/16/18 10:30 Pulse Ox 98 05/16/18 08:00 Intake & Output 05/15/18 05/16/18 05/16/18 18:59 06:59 18:59 Intake Total 2188.25 0 500 Output Total 480 850 800 Balance 1708.25 -850 -300 Weight 92.27 kg 87.7 kg 87.7 kg Intake: IV 260 0 Lactated Ringers 1,000 ml 190 0 @ 20 mls/hr IV .Q24H [facility] Rx#:[id number] cardiac output 40 0 pressure bag 30 0 Intake, IV Titration 28.25 Amount Insulin Regular 100 unit 0 In Sodium Chloride 0.9% 100 ml @ Per Protocol IV .Q0M [facility] Rx#:[id number] Nitroglycerin-D5w Pmx 50 28.25 mg In Dextrose/Water 1 250ml.bag @ 5 MCG/MIN 1.5 mls/hr IV .Q24H [facility] Rx#: [id number] Oral 1900 500 Output: Chest Tube Drainage 30 200 left pleural chest tube 0 200 mediastinal 30 Urine 450 650 800 Other: Voiding Method Urinal Urinal Urinal ABP, PAP, CO, CI - Last Documented Arterial Blood Pressure 131/63 Pulmonary Artery Pressure 25/13 Cardiac Output 6.9 Cardiac Index 3.2 - Exam GENERAL EXAM: Alert, fairly comfortable in no apparent distress. On room air. HEAD: Normocephalic. EYES: Normal reaction of pupils, equal size. NOSE: Clear with pink turbinates. THROAT: No erythema or exudates. NECK: No masses, no JVD. CHEST: Surgical dressing dry and intact. Heart Hugger in place. LUNGS: Equal air entry with echoes in the bilateral posterior bases. CVS: S1 and S2 normal with no audible murmur, regular rhythm. ABDOMEN: No hepatosplenomegaly, normal bowel sounds, no guarding or rigidity. SPINE: No scoliosis or deformity SKIN: No rashes CENTRAL NERVOUS SYSTEM: No focal deficits, tone is normal in all 4 extremities. EXTREMITIES: Left radial incision clean dry well approximated. There is peripheral edema. No clubbing, no cyanosis. Peripheral pulses are intact. - Labs CBC & Chem 7: 05/16/18 05:32 05/16/18 05:32 Labs: Abnormal Lab Results - Last 24 Hours (Table) 05/15/18 05/15/18 05/15/18 Range/Units 12:01 17:34 20:33 RBC (4.30-5.90) m/uL Hgb (13.0-17.5) gm/dL Hct (39.0-53.0) % Plt Count (150-450) k/uL Lymphocytes # (1.0-4.8) k/uL Glucose (74-99) mg/dL POC Glucose (mg/dL) 110 H 111 H 103 H (75-99) mg/dL Total Protein (6.3-8.2) g/dL 05/16/18 05/16/18 05/16/18 Range/Units 05:32 05:32 07:00 RBC 3.93 L (4.30-5.90) m/uL Hgb 11.9 L (13.0-17.5) gm/dL Hct 37.4 L (39.0-53.0) % Plt Count 128 L (150-450) k/uL Lymphocytes # 0.9 L (1.0-4.8) k/uL Glucose 108 H (74-99) mg/dL POC Glucose (mg/dL) 117 H (75-99) mg/dL Total Protein 5.8 L (6.3-8.2) g/dL Assessment and Plan Assessment: Impression: #1 Coronary artery disease status post coronary artery bypass grafting utilizing a MARQUEZ to the LAD and radial artery graft to the PDA. Postoperative day #2. The patient had been extubated successfully without any major complications. #2 Hypertension. #3 Hyperlipidemia. #4 Glaucoma. Plan: The patient was seen and evaluated by Dr. Triana. Chest x-ray and labs were reviewed. Chest tubes are removed. He is working well with the incentive spirometer. Maintaining good O2 saturations in the 90s on room air. He'll be transferred out of the intensive care unit today. We'll continue to follow make further recommendations based on his clinical status. I, the cosigning physician, performed a history & physical examination of the patient. Lungs sounds with faint crackles in the posterior bases Maintaining good O2 saturations in the 90s on room air. I discussed the assessment and plan of care with my nurse practitioner, Didi Johnson. I attest to the above note as dictated by her.
--- NOTE | 2018-05-16 12:08 | P.PN ---
Subjective Progress Note Date: 05/16/18 Principal diagnosis: Double vessel coronary artery disease with total occlusion of his left anterior descending artery and the right coronary artery, overall preserved left ventricular function, hypertension, hyperlipidemia, status post bilateral ultrasound ablation of the right greater saphenous vein systems. Family history of premature coronary artery disease. EtOH use 2-7 drinks per week. Preoperative nasal swab positive for MSSA. POD #2 total arterial off-pump double coronary artery bypass grafting using the left internal mammary artery to the distal left anterior descending artery at the patch angioplasty, the left radial artery connected to the aorta using the heartstring 3 device and connected distally to the distal right coronary artery , proximal posterior descending artery area. Endoscopic harvesting of the left radial artery. Intraoperative transesophageal echocardiogram and epi-aortic scanning. Intraoperative graft flow measurements using the [employer] system. Patient is currently sitting up to the bedside chair in the intensive care unit. He is in no acute distress. He denies any complaints of shortness of breath although he is complaining of pain to his left chest tube insertion site 5 out of 10 on the pain scale. He remains hemodynamically stable. His oxygen saturations are 98% on room air. He is achieving 4679-9488 mL on his incentive spirometry. Left chest tube remains in place to low continuous wall suction - 20 cm H2O. Draining thin serosanguineous drainage. 200 mL output the last 24 hours. Objective - Vital Signs Vital signs: Vital Signs Temp 98.3 F 05/16/18 08:00 Pulse 69 05/16/18 11:49 Resp 18 05/16/18 08:00 BP 105/63 05/16/18 10:30 Pulse Ox 98 05/16/18 08:00 Intake & Output 05/15/18 05/16/18 05/16/18 18:59 06:59 18:59 Intake Total 2188.25 0 500 Output Total 480 850 800 Balance 1708.25 -850 -300 Weight 92.27 kg 87.7 kg 87.7 kg Intake: IV 260 0 Lactated Ringers 1,000 ml 190 0 @ 20 mls/hr IV .Q24H [facility] Rx#:[id number] cardiac output 40 0 pressure bag 30 0 Intake, IV Titration 28.25 Amount Insulin Regular 100 unit 0 In Sodium Chloride 0.9% 100 ml @ Per Protocol IV .Q0M [facility] Rx#:[id number] Nitroglycerin-D5w Pmx 50 28.25 mg In Dextrose/Water 1 250ml.bag @ 5 MCG/MIN 1.5 mls/hr IV .Q24H [facility] Rx#: [id number] Oral 1900 500 Output: Chest Tube Drainage 30 200 left pleural chest tube 0 200 mediastinal 30 Urine 450 650 800 Other: Voiding Method Urinal Urinal Urinal ABP, PAP, CO, CI - Last Documented Arterial Blood Pressure 131/63 Pulmonary Artery Pressure 25/13 Cardiac Output 6.9 Cardiac Index 3.2 - Constitutional General appearance: Present: cooperative, no acute distress - Respiratory Details: Lung sounds essentially clear throughout, diminished to his bilateral bases. Respirations are symmetrical and nonlabored. Oxygen saturation are 98% on room air. He is achieving 1000 to 1500 mL on his incentive spirometry. Left pleural chest tube remains to low continuous wall suction -20 cm H2O. Draining thin serosanguineous drainage. 200 mL output in the last 24 hours. No air leaks present. - Cardiovascular Details: Regular rhythm and rate. S1 and S2 present, negative for S3, gallop or murmur. Sternum is stable. Bedside telemetry showing normal sinus rhythm heart rate 73. No edema present. Heart hugger is in place and he is demonstrating appropriate use. Knee-high PABLO hose and sequential compression devices in place to his bilateral lower extremities. - Gastrointestinal Gastrointestinal Comment(s): Abdomen soft, nontender and nondistended. Active bowel sounds all 4 abdominal quadrants. Passing flatus. Tolerating oral intake. No guarding or rigidity. - Genitourinary Genitourinary Comment(s): Voiding clear yellow urine. 250 mL output in the last 8 hours. - Integumentary Integumentary Comment(s): Skin is warm and dry. No clubbing or cyanosis present. Midline to sternal incision clean, dry and approximated. No drainage or redness present. Gauze dressing clean, dry and intact. Left arm radial artery harvest site clean, dry and approximated. No drainage or redness present. Left hand warm to touch. - Neurologic Neurologic: Present: CNII-XII intact - Musculoskeletal Musculoskeletal: Present: gait normal, strength equal bilaterally - Psychiatric Psychiatric: Present: A&O x's 3, appropriate affect, intact judgment & insight - Allied health notes Allied health notes reviewed: nursing - Labs CBC & Chem 7: 05/16/18 05:32 05/16/18 05:32 Labs: Abnormal Lab Results - Last 24 Hours (Table) 05/15/18 05/15/18 05/15/18 Range/Units 12:01 17:34 20:33 RBC (4.30-5.90) m/uL Hgb (13.0-17.5) gm/dL Hct (39.0-53.0) % Plt Count (150-450) k/uL Lymphocytes # (1.0-4.8) k/uL Glucose (74-99) mg/dL POC Glucose (mg/dL) 110 H 111 H 103 H (75-99) mg/dL Total Protein (6.3-8.2) g/dL 05/16/18 05/16/18 05/16/18 Range/Units 05:32 05:32 07:00 RBC 3.93 L (4.30-5.90) m/uL Hgb 11.9 L (13.0-17.5) gm/dL Hct 37.4 L (39.0-53.0) % Plt Count 128 L (150-450) k/uL Lymphocytes # 0.9 L (1.0-4.8) k/uL Glucose 108 H (74-99) mg/dL POC Glucose (mg/dL) 117 H (75-99) mg/dL Total Protein 5.8 L (6.3-8.2) g/dL - Imaging and Cardiology Chest x-ray: report reviewed, image reviewed Assessment and Plan (1) Anxiety Current Visit: Yes Status: Chronic Code(s): F41.9 - ANXIETY DISORDER, UNSPECIFIED SNOMED Code(s): 88785712 (2) Coronary artery disease Current Visit: Yes Status: Chronic Code(s): I25.10 - ATHSCL HEART DISEASE OF [place] CORONARY ARTERY W/O ANG PCTRS SNOMED Code(s): 21184970 (3) Dyslipidemia Current Visit: Yes Status: Chronic Code(s): E78.5 - HYPERLIPIDEMIA, UNSPECIFIED SNOMED Code(s): 088581953 (4) Family history of premature coronary artery disease Current Visit: Yes Status: Chronic Code(s): Z82.49 - FAMILY HX OF [place] HEART DIS AND OTH DIS OF THE CIRC SYS SNOMED Code(s): 368566655 (5) GERD (gastroesophageal reflux disease) Current Visit: Yes Status: Chronic Code(s): K21.9 - GASTRO-ESOPHAGEAL REFLUX DISEASE WITHOUT ESOPHAGITIS SNOMED Code(s): 026968225 (6) Glaucoma Current Visit: Yes Status: Chronic Code(s): H40.9 - UNSPECIFIED GLAUCOMA SNOMED Code(s): 36356938 (7) Hypertension Current Visit: Yes Status: Chronic Code(s): I10 - ESSENTIAL (PRIMARY) HYPERTENSION SNOMED Code(s): 34486038 Plan: 1. Continue aspirin, statin, Plavix and beta rosaura. Will increase beta rosaura as tolerated. 2. Continue amlodipine for radial artery spasm. 3. Encourage and some spirometry is 10 times every hour while awake. 4. Increase activity as tolerated, ambulate in hallway. PT/OT/cardiac rehab following. 5. Bronchodilators management per pulmonology. 6. Pain controlled current medication regimen. 7. Will monitor daily labs and x-rays. Electrolyte replacement per protocol. 8. Insulin management per primary care service. 9. GI prophylaxis with Protonix, DVT prophylaxis with subcu heparin, SCDs. 10. Continue nasal mupirocin, preoperative initial nasal swab positive for MSSA , repeat negative. 11. Discontinue left pleural chest tube. Left pleural chest tube discontinued at 12 PM today without incident. Gauze dressing 4 x 4 with impregnated Vaseline gauze to cover and secured with tape. 12. Discontinue left arm FELICITA drain. 13. Transfer to [address] [place] [address] cardiac stepdown unit. 14. More recommendations to follow based on patient's clinical course. Time with Patient: Greater than 30
[2018-05-16 16:30] LABS: Glucose,Whole Blood 116 mg/dL (75-99)
[2018-05-16] MEDS: SENNOSIDES-DOCUSATE SODIUM 1 EACH TAB PO SCH (20:56)
[2018-05-16] MEDS: LATANOPROST 0.005% OPHTH DROPS 2.5 ML BTL BOTH EYES SCH (20:57)
[2018-05-16 21:35] LABS: Glucose,Whole Blood 119 mg/dL (75-99)
[2018-05-17] MEDS: HEPARIN SODIUM,PORCINE 5,000 UNIT/ML 1 ML VIAL SQ SCH ×4 (00:04→23:42)
[2018-05-17 02:00] LABS: Glucose,Whole Blood 103 mg/dL (75-99)
[2018-05-17 05:41] LABS: Glucose,Whole Blood 104 mg/dL (75-99)
[2018-05-17] MEDS: INSULIN ASPART 100 UNIT/ML 1 ML 10 ML VIAL SQ SCH ×4 (05:52→20:56)
[2018-05-17] MEDS: PANTOPRAZOLE 40 MG TABLET PO SCH (06:25)
[2018-05-17 07:03] LABS: Basophils % (A) 0 %; Eosinophils # (A) 0.1 k/uL (0-0.7); Eosinophils % (A) 1 %; HCT 34.9 % (39.0-53.0); HGB 11.2 gm/dL (13.0-17.5); Lymphocytes # (A) 0.8 k/uL (1.0-4.8); Lymphocytes % (A) 9 %; MCH 30.7 pg (25.0-35.0); MCV 95.9 fL (80.0-100.0); Mean Platelet Volume 8.8; Monocytes # (A) 0.5 k/uL (0-1.0); Monocytes % (A) 6 %; Neutrophils # (A) 6.7 k/uL (1.3-7.7); Neutrophils % (A) 81 %; Platelet Count 148 k/uL (150-450); RBC 3.64 m/uL (4.30-5.90); RDW 13.4 % (11.5-15.5); WBC 8.3 k/uL (3.8-10.6)
--- NOTE | 2018-05-17 07:09 | XR ---
EXAMINATION TYPE: XR chest 2V DATE OF EXAM: 05/17/2018 HISTORY: Post op CABG. REFERENCE: Previous study dated 05/16/2018. FINDINGS: There has been a midline sternotomy. The heart is enlarged. There is platelike atelectasis of the left lung base as well as mild atelectat ic change at the right lung base. There are small, bilateral effusions. The patient's left pleural dr ain has been removed. No definite pneumothorax is seen. IMPRESSION: 1. CARDIOMEGALY. 2. BIBASILAR ATELECTASIS. 3. I SUSPECT SMALL, BILATERAL EFFUSIONS.
[2018-05-17 07:15] LABS: ALT 26 U/L (21-72); AST 26 U/L (17-59); Albumin 3.4 g/dL (3.5-5.0); Alkaline Phosphatase 57 U/L (38-126); Anion Gap 7 mmol/L; Blood Urea Nitrogen 13 mg/dL (9-20); Calcium 8.5 mg/dL (8.4-10.2); Carbon Dioxide 28 mmol/L (22-30); Chloride 104 mmol/L (98-107); Glucose 107 mg/dL (74-99); Magnesium 1.7 mg/dL (1.6-2.3); Potassium 4.2 mmol/L (3.5-5.1); Sodium 139 mmol/L (137-145); Total Bilirubin 0.8 mg/dL (0.2-1.3); Total Protein 5.7 g/dL (6.3-8.2)
--- NOTE | 2018-05-17 07:47 | PN ---
PROGRESS NOTE DATE OF SERVICE: 05/16/2018 PRESENTING COMPLAINT: Coronary bypass. INTERVAL HISTORY: Patient is status post coronary bypass, doing well, moved out of the ICU to the cardiology floor. Tolerating his diet. Breathing is better, up and about. No new issues. Breathing is stable. REVIEW OF SYSTEMS: Done for constitutional, cardiovascular, GI, pulmonary; relevant findings as above. CURRENT MEDICATIONS: Reviewed. PHYSICAL EXAMINATION: Temperature 99.5, pulse 72, respiration 20, blood pressure 107/62, pulse ox 95% on room air. GENERAL APPEARANCE: Propped up in bed, comfortable. EYES: Pupils equal. Conjunctivae normal. NECK: JVD not raised. Mass not palpable. Respiratory effort normal. LUNGS: Decreased breath sounds. CARDIOVASCULAR: 1st and 2nd sounds normal, no edema. ABDOMEN: Soft, nontender. Liver and spleen not palpable. PSYCHIATRY: Alert and oriented x3. Mood and affect normal. INVESTIGATIONS: White count 8.6, hemoglobin 11.9, potassium 4.4. ASSESSMENT: 1. Coronary artery bypass. 2. Gastroesophageal reflux disease. 3. Essential hypertension. 4. Hyperlipidemia. 5. Acute postop blood-loss anemia as expected from surgery. 6. Dilutional thrombocytopenia, improving. PLAN: Stable. Continue current medication and treatment plan. Care was discussed with the patient. MMODL / IJN: [id number] /
[2018-05-17] MEDS: IPRATROPIUM-ALBUTEROL 3 ML NEB INHALATION SCH ×4 (08:12→20:43)
[2018-05-17] MEDS: CLOPIDOGREL 75 MG TAB PO SCH (08:48)
[2018-05-17] MEDS: ASPIRIN 325 MG TAB PO SCH (08:48)
[2018-05-17] MEDS: amLODIPine 2.5 MG TAB PO SCH (08:48)
[2018-05-17] MEDS: ATORVASTATIN 40 MG TAB PO SCH (08:49)
[2018-05-17] MEDS: METOPROLOL TARTRATE 25 MG TAB PO SCH ×2 (08:49→21:04)
[2018-05-17] MEDS: TIMOLOL 0.5% OPHTH DROPS 5 ML BTL BOTH EYES SCH ×2 (09:00→21:05)
[2018-05-17] MEDS: BRIMONIDINE TARTRATE 0.2% DROPS 5 ML BTL BOTH EYES SCH ×2 (09:01→21:05)
[2018-05-17] MEDS: MUPIROCIN 2% OINT 22 GM TUBE NASAL SCH ×2 (09:01→21:06)
[2018-05-17] MEDS ORDERED: ACETAMINOPHEN TAB 325 MG TAB PO PRN ×2 (10:04)
--- NOTE | 2018-05-17 10:18 | P.PN ---
Subjective Progress Note Date: 05/17/18 Principal diagnosis: Double vessel coronary artery disease with total occlusion of his left anterior descending artery and the right coronary artery, overall preserved left ventricular function, hypertension, hyperlipidemia, status post bilateral ultrasound ablation of the right greater saphenous vein systems. Family history of premature coronary artery disease. EtOH use 2-7 drinks per week. Preoperative nasal swab positive for MSSA. POD #3 total arterial off-pump double coronary artery bypass grafting using the left internal mammary artery to the distal left anterior descending artery at the patch angioplasty, the left radial artery connected to the aorta using the heartstring 3 device and connected distally to the distal right coronary artery , proximal posterior descending artery area. Endoscopic harvesting of the left radial artery. Intraoperative transesophageal echocardiogram and epi-aortic scanning. Intraoperative graft flow measurements using the [employer] system. Patient is currently sitting up to the bedside chair in the [address] [place] [address] cardiac care unit. He is in no acute distress. He denies complaints of pain or shortness of breath. He remains hemodynamically stable. His oxygen saturations are 94% on room air. He is achieving 1500 mL on his incentive spirometry. He reports he inflated in the [address] [place] [address] cardiac care unit yesterday 4. He remains afebrile. Discharge planning was discussed with the patient. Objective - Vital Signs Vital signs: Vital Signs Temp 98.4 F 05/17/18 04:00 Pulse 72 05/17/18 08:25 Resp 18 05/17/18 04:00 BP 108/66 05/17/18 04:00 Pulse Ox 94 L 05/17/18 04:00 Intake & Output 05/16/18 05/17/18 05/17/18 18:59 06:59 18:59 Intake Total 860 500 Output Total 1300 500 Balance -440 0 Weight 87.7 kg 91.7 kg Intake: Oral 860 500 Output: Urine 1300 500 Other: Voiding Method Urinal Toilet Urinal # Voids 1 ABP, PAP, CO, CI - Last Documented Arterial Blood Pressure 131/63 Pulmonary Artery Pressure 25/13 Cardiac Output 6.9 Cardiac Index 3.2 - Constitutional General appearance: Present: cooperative, no acute distress - Respiratory Details: Lung sounds essentially clear throughout, diminished bilateral bases. Respirations are symmetrical and nonlabored. Oxygen saturation are 94% on room air. He is achieving 1500 mL on his incentive spirometry. - Cardiovascular Details: Regular rhythm and rate. S1 and S2 present, negative for S3, gallop or murmur. Sternum is stable. Remote telemetry showing normal sinus rhythm heart rate 71. No edema present. Heart hugger is in place and he is demonstrating appropriate use. Knee-high PABLO hose and sequential compression devices in place to his bilateral lower extremities. - Gastrointestinal Gastrointestinal Comment(s): Abdomen soft, nontender and nondistended. Active bowel sounds all 4 abdominal quadrants. No guarding or rigidity. No organomegaly. Tolerating oral intake. Passing flatus. - Genitourinary Genitourinary Comment(s): Voiding clear yellow urine. 500 mL output in the last 8 hours. - Integumentary Integumentary Comment(s): Skin is warm and dry. No clubbing or cyanosis present. Midline sternal incision is clean, dry and approximated. No drainage or redness present. Left arm radial artery harvest sites clean, dry and approximated. No drainage redness present. - Neurologic Neurologic: Present: CNII-XII intact - Musculoskeletal Musculoskeletal: Present: gait normal, strength equal bilaterally - Psychiatric Psychiatric: Present: A&O x's 3, appropriate affect, intact judgment & insight - Allied health notes Allied health notes reviewed: nursing - Labs CBC & Chem 7: 05/17/18 06:21 05/17/18 06:21 Labs: Abnormal Lab Results - Last 24 Hours (Table) 05/16/18 05/16/18 05/17/18 Range/Units 16:25 21:31 01:58 RBC (4.30-5.90) m/uL Hgb (13.0-17.5) gm/dL Hct (39.0-53.0) % Plt Count (150-450) k/uL Lymphocytes # (1.0-4.8) k/uL Glucose (74-99) mg/dL POC Glucose (mg/dL) 116 H 119 H 103 H (75-99) mg/dL Total Protein (6.3-8.2) g/dL Albumin (3.5-5.0) g/dL 05/17/18 05/17/18 05/17/18 Range/Units 05:37 06:21 06:21 RBC 3.64 L (4.30-5.90) m/uL Hgb 11.2 L (13.0-17.5) gm/dL Hct 34.9 L (39.0-53.0) % Plt Count 148 L (150-450) k/uL Lymphocytes # 0.8 L (1.0-4.8) k/uL Glucose 107 H (74-99) mg/dL POC Glucose (mg/dL) 104 H (75-99) mg/dL Total Protein 5.7 L (6.3-8.2) g/dL Albumin 3.4 L (3.5-5.0) g/dL - Imaging and Cardiology Chest x-ray: report reviewed, image reviewed Assessment and Plan (1) Anxiety Current Visit: Yes Status: Chronic Code(s): F41.9 - ANXIETY DISORDER, UNSPECIFIED SNOMED Code(s): 37619382 (2) Coronary artery disease Current Visit: Yes Status: Chronic Code(s): I25.10 - ATHSCL HEART DISEASE OF [place] CORONARY ARTERY W/O ANG PCTRS SNOMED Code(s): 07538780 (3) Dyslipidemia Current Visit: Yes Status: Chronic Code(s): E78.5 - HYPERLIPIDEMIA, UNSPECIFIED SNOMED Code(s): 582048512 (4) Family history of premature coronary artery disease Current Visit: Yes Status: Chronic Code(s): Z82.49 - FAMILY HX OF I[place]HE[place] HEART DIS AND OTH DIS OF THE CIRC SYS SNOMED Code(s): 773102926 (5) GERD (gastroesophageal reflux disease) Current Visit: Yes Status: Chronic Code(s): K21.9 - GASTRO-ESOPHAGEAL REFLUX DISEASE WITHOUT ESOPHAGITIS SNOMED Code(s): 908047062 (6) Glaucoma Current Visit: Yes Status: Chronic Code(s): H40.9 - UNSPECIFIED GLAUCOMA SNOMED Code(s): 71778676 (7) Hypertension Current Visit: Yes Status: Chronic Code(s): I10 - ESSENTIAL (PRIMARY) HYPERTENSION SNOMED Code(s): 40630099 Plan: 1. Continue aspirin, statin, Plavix and beta rosaura. Will increase beta rosaura as tolerated. 2. Continue amlodipine for radial artery spasm. Do not discontinue amlodipine. 3. Encourage and some spirometry is 10 times every hour while awake. 4. Increase activity as tolerated, ambulate in hallway. PT/OT/cardiac rehab following. 5. Bronchodilators management per pulmonology. 6. Pain controlled current medication regimen. Discontinue [place] and Toradol. 7. Will monitor daily labs and x-rays. Electrolyte replacement per protocol. 8. Insulin management per primary care service. 9. GI prophylaxis with Protonix, DVT prophylaxis with subcu heparin, SCDs. 10. Continue nasal mupirocin, preoperative initial nasal swab positive for MSSA , repeat negative. 11. Discharge planning in place, anticipate discharge home with home health care within the next 24 hours. 12. More recommendations to follow based on patient's clinical course. Time with Patient: Greater than 30
[2018-05-17] MEDS: MAGNESIUM SULFATE-D5W PMX 1 GM in DEXTROSE/WATER 1 100ML.BAG IVPB SCH ×2 (10:43→12:11)
--- NOTE | 2018-05-17 11:35 | P.PN ---
Subjective Progress Note Date: 05/17/18 Principal diagnosis: Coronary artery disease status post coronary artery bypass grafting The patient is seen today 05/16/2018 in follow-up in the intensive care unit. He is awake and alert in no acute distress. He is postoperative day #2. He is having some surgical chest wall discomfort otherwise doing well. He denies any worsening shortness of breath, cough or congestion. Maintaining good O2 saturations in the 90s on room air. He is working well with the incentive spirometer. Chest x-ray stable showing cardiomegaly and bibasilar infiltrates with small effusions. He is afebrile. White count 8.6. Hemoglobin 11.9. Creatinine 0.8. On 10/15/2018 patient seen again in follow-up on selective care unit, he is on room air, he is in no distress, pulse ox is 95%, afebrile, hemodynamically stable, today's chest x-ray has been reviewed with Dr. Triana and showed bibasilar atelectasis, and small bilateral pleural effusions. Patient has been ambulating, tolerating activity well, is in -440 mL fluid balance. Labs have been reviewed, shows WBC of 8.3, hemoglobin of 11.2, electrolytes and renal profile all within normal limits. is achieving 1800 on his incentive spirometer today, anticipate discharge home tomorrow Objective - Vital Signs Vital signs: Vital Signs Temp 98.9 F 05/17/18 08:00 Pulse 72 05/17/18 08:25 Resp 18 05/17/18 08:00 BP 112/69 05/17/18 08:00 Pulse Ox 95 05/17/18 08:00 Intake & Output 05/16/18 05/17/18 05/17/18 18:59 06:59 18:59 Intake Total 860 500 Output Total 1300 500 Balance -440 0 Weight 87.7 kg 91.7 kg Intake: Oral 860 500 Output: Urine 1300 500 Other: Voiding Method Urinal Toilet Toilet Urinal Urinal # Voids 1 ABP, PAP, CO, CI - Last Documented Arterial Blood Pressure 131/63 Pulmonary Artery Pressure 25/13 Cardiac Output 6.9 Cardiac Index 3.2 - Exam GENERAL EXAM: Alert, 62-year-old white male comfortable in no apparent distress. On room air HEAD: Normocephalic/atraumatic. EYES: Normal reaction of pupils, equal size. Conjunctiva pink, sclera white. NOSE: Clear with pink turbinates. THROAT: No erythema or exudates. NECK: No masses, no JVD, no thyroid enlargement, no adenopathy. CHEST: No chest wall deformity. Symmetrical expansion. Midsternal incision is clean dry and intact, covered with a dressing, patient has a Heart Hugger on LUNGS: Equal air entry with no crackles, wheeze, rhonchi or dullness. CVS: Regular rate and rhythm, normal S1 and S2, no gallops, no murmurs, no rubs ABDOMEN: Soft, nontender. No hepatosplenomegaly, normal bowel sounds, no guarding or rigidity. EXTREMITIES: No clubbing, no edema, no cyanosis, 2+ pulses and upper and lower extremities. MUSCULOSKELETAL: Muscle strength and tone normal. SPINE: No scoliosis or deformity SKIN: No rashes CENTRAL NERVOUS SYSTEM: Alert and oriented -3. No focal deficits, tone is normal in all 4 extremities. PSYCHIATRIC: Alert and oriented -3. Appropriate affect. Intact judgment and insight. - Labs CBC & Chem 7: 05/17/18 06:21 05/17/18 06:21 Labs: Abnormal Lab Results - Last 24 Hours (Table) 05/16/18 05/16/18 05/17/18 Range/Units 16:25 21:31 01:58 RBC (4.30-5.90) m/uL Hgb (13.0-17.5) gm/dL Hct (39.0-53.0) % Plt Count (150-450) k/uL Lymphocytes # (1.0-4.8) k/uL Glucose (74-99) mg/dL POC Glucose (mg/dL) 116 H 119 H 103 H (75-99) mg/dL Total Protein (6.3-8.2) g/dL Albumin (3.5-5.0) g/dL 05/17/18 05/17/18 05/17/18 Range/Units 05:37 06:21 06:21 RBC 3.64 L (4.30-5.90) m/uL Hgb 11.2 L (13.0-17.5) gm/dL Hct 34.9 L (39.0-53.0) % Plt Count 148 L (150-450) k/uL Lymphocytes # 0.8 L (1.0-4.8) k/uL Glucose 107 H (74-99) mg/dL POC Glucose (mg/dL) 104 H (75-99) mg/dL Total Protein 5.7 L (6.3-8.2) g/dL Albumin 3.4 L (3.5-5.0) g/dL Assessment and Plan Plan: #1 Coronary artery disease status post coronary artery bypass grafting utilizing a MARQUEZ to the LAD and radial artery graft to the PDA. Postoperative day #2. The patient had been extubated successfully without any major complications. #2 Hypertension. #3 Hyperlipidemia. #4 Glaucoma. Plan: She is doing well, continuing urgent deep breathing and coughing, ambulation, chest x-ray has been reviewed with Dr. Triana, shows bibasilar atelectasis and small pleural effusions, he is on room air, ambulating, tolerating activity well. He is under good control despite discharge home tomorrow I performed a history & physical examination of the patient and discussed their management with my nurse practitioner, Ivelisse Celeste. I reviewed the nurse practitioner's note and agree with the documented findings and plan of care. Lung sounds are positive for diminished breath sounds. The findings and the impression was discussed with the patient. I attest to the documentation by the nurse practitioner. Time with Patient: Less than 30
[2018-05-17 11:57] LABS: Glucose,Whole Blood 101 mg/dL (75-99)
--- NOTE | 2018-05-17 13:13 | P.PN ---
Subjective Progress Note Date: 05/17/18 Principal diagnosis: Status post CABG This is a pleasant 62-year-old gentleman who was admitted to the hospital yesterday and underwent CABG 2. He underwent MARQUEZ to LAD and radial artery to RCA. The patient underwent a heart catheterization recently and that revealed severe two-vessel coronary artery disease with chronic total occlusion of the LAD and chronic total occlusion of the right coronary artery and intermediate disease involving the left circumflex coronary artery. I'll follow-up with the patient today, he is doing very well. This is day #3 after surgery. He is having mild chest discomfort. Hemodynamically he continues to be stable. He continues to be in normal sinus mechanism. He continues to be on dual antiplatelet therapy along with a statin as well as metoprolol. The patient is anticipated to be discharged home this coming Friday. Objective - Vital Signs Vital signs: Vital Signs Temp 98.1 F 05/17/18 12:00 Pulse 63 05/17/18 12:00 Resp 18 05/17/18 12:00 BP 99/64 05/17/18 12:00 Pulse Ox 100 05/17/18 12:00 Intake & Output 05/16/18 05/17/18 05/17/18 18:59 06:59 18:59 Intake Total 860 500 360 Output Total 1300 500 Balance -440 0 360 Weight 87.7 kg 91.7 kg Intake: Oral 860 500 360 Output: Urine 1300 500 Other: Voiding Method Urinal Toilet Toilet Urinal Urinal # Voids 1 ABP, PAP, CO, CI - Last Documented Arterial Blood Pressure 131/63 Pulmonary Artery Pressure 25/13 Cardiac Output 6.9 Cardiac Index 3.2 - Constitutional General appearance: Present: no acute distress - Respiratory Respiratory: bilateral: CTA - Cardiovascular Rhythm: regular Heart sounds: normal: S1, S2 - Labs CBC & Chem 7: 05/17/18 06:21 05/17/18 06:21 Labs: Abnormal Lab Results - Last 24 Hours (Table) 05/16/18 05/16/18 05/17/18 Range/Units 16:25 21:31 01:58 RBC (4.30-5.90) m/uL Hgb (13.0-17.5) gm/dL Hct (39.0-53.0) % Plt Count (150-450) k/uL Lymphocytes # (1.0-4.8) k/uL Glucose (74-99) mg/dL POC Glucose (mg/dL) 116 H 119 H 103 H (75-99) mg/dL Total Protein (6.3-8.2) g/dL Albumin (3.5-5.0) g/dL 05/17/18 05/17/18 05/17/18 Range/Units 05:37 06:21 06:21 RBC 3.64 L (4.30-5.90) m/uL Hgb 11.2 L (13.0-17.5) gm/dL Hct 34.9 L (39.0-53.0) % Plt Count 148 L (150-450) k/uL Lymphocytes # 0.8 L (1.0-4.8) k/uL Glucose 107 H (74-99) mg/dL POC Glucose (mg/dL) 104 H (75-99) mg/dL Total Protein 5.7 L (6.3-8.2) g/dL Albumin 3.4 L (3.5-5.0) g/dL 05/17/18 Range/Units 11:29 RBC (4.30-5.90) m/uL Hgb (13.0-17.5) gm/dL Hct (39.0-53.0) % Plt Count (150-450) k/uL Lymphocytes # (1.0-4.8) k/uL Glucose (74-99) mg/dL POC Glucose (mg/dL) 101 H (75-99) mg/dL Total Protein (6.3-8.2) g/dL Albumin (3.5-5.0) g/dL Assessment and Plan Assessment: Assessment #1 coronary artery disease and status post CABG 2 #2 hypertension #3 as to be tinea Plan #1 the patient is doing well clinically and hemodynamically #2 continue the current medical regimen including dual antiplatelet therapy and statin #3 follow-up with the patient
[2018-05-17 16:43] LABS: Glucose,Whole Blood 111 mg/dL (75-99)
[2018-05-17 20:45] LABS: Glucose,Whole Blood 133 mg/dL (75-99)
[2018-05-17] MEDS: SENNOSIDES-DOCUSATE SODIUM 1 EACH TAB PO SCH (21:04)
[2018-05-17] MEDS: LATANOPROST 0.005% OPHTH DROPS 2.5 ML BTL BOTH EYES SCH (21:05)
--- NOTE | 2018-05-17 22:05 | PN ---
PROGRESS NOTE DATE OF SERVICE: 05/17/2018 PRESENTING COMPLAINT: Coronary bypass. INTERVAL HISTORY: Patient is status post coronary bypass, doing well, up and about. Had a bowel movement. Breathing is much better. Pain controlled. Minimal dizziness. Ambulating well in the hallway. is present. REVIEW OF SYSTEMS: Done for constitutional, cardiovascular, GI, pulmonary; relevant findings as above. CURRENT MEDICATIONS: Reviewed. PHYSICAL EXAMINATION: Temperature 98.5, pulse 64, respiration 18, blood pressure 124/80, pulse ox 97% on room air. GENERAL APPEARANCE: Sitting up in bed, comfortable EYES: Pupils equal. Conjunctivae normal. NECK: JVD not raised. Mass not palpable. Respiratory effort normal. LUNGS; Fair air entry. CARDIOVASCULAR: 1st and 2nd sounds normal. No edema. ABDOMEN: Soft, nontender. Liver and spleen not palpable. PSYCHIATRY: Alert and oriented x3. Mood and affect normal. INVESTIGATIONS: White count 8.3, hemoglobin 11.2, potassium 4.2. BUN and creatinine normal. ASSESSMENT: 1. Coronary artery bypass. 2. Gastroesophageal reflux disease. 3. Essential hypertension. 4. Hyperlipidemia. 5. Acute postop blood loss anemia expected from surgery. 6. Dilutional thrombocytopenia, improving. PLAN: Stable. Continue current medication and treatment plan. Patient doing rather well. MMODL / IJN: [id number] /
[2018-05-18 02:01] LABS: Glucose,Whole Blood 109 mg/dL (75-99)
[2018-05-18 04:09] VITALS: PULSE 65
[2018-05-18 05:33] LABS: Glucose,Whole Blood 102 mg/dL (75-99)
[2018-05-18] MEDS: INSULIN ASPART 100 UNIT/ML 1 ML 10 ML VIAL SQ SCH (05:47)
[2018-05-18] MEDS: PANTOPRAZOLE 40 MG TABLET PO SCH (06:40)
[2018-05-18 07:39] LABS: Basophils % (A) 0 %; Eosinophils # (A) 0.1 k/uL (0-0.7); Eosinophils % (A) 1 %; HCT 32.6 % (39.0-53.0); HGB 10.3 gm/dL (13.0-17.5); Lymphocytes % (A) 15 %; MCH 30.3 pg (25.0-35.0); MCHC 31.7 g/dL (31.0-37.0); MCV 95.5 fL (80.0-100.0); Mean Platelet Volume 7.8; Monocytes # (A) 0.4 k/uL (0-1.0); Monocytes % (A) 6 %; Neutrophils # (A) 4.7 k/uL (1.3-7.7); Neutrophils % (A) 74 %; Platelet Count 175 k/uL (150-450); RBC 3.42 m/uL (4.30-5.90); RDW 13.4 % (11.5-15.5); WBC 6.4 k/uL (3.8-10.6)
[2018-05-18 07:51] LABS: ALT 32 U/L (21-72); AST 30 U/L (17-59); Albumin 3.2 g/dL (3.5-5.0); Alkaline Phosphatase 57 U/L (38-126); Anion Gap 7 mmol/L; Blood Urea Nitrogen 12 mg/dL (9-20); Calcium 8.5 mg/dL (8.4-10.2); Carbon Dioxide 29 mmol/L (22-30); Chloride 106 mmol/L (98-107); Glucose 108 mg/dL (74-99); Magnesium 1.9 mg/dL (1.6-2.3); Potassium 4.5 mmol/L (3.5-5.1); Sodium 142 mmol/L (137-145); Total Bilirubin 0.8 mg/dL (0.2-1.3); Total Protein 5.5 g/dL (6.3-8.2)
[2018-05-18] MEDS: IPRATROPIUM-ALBUTEROL 3 ML NEB INHALATION SCH (08:13)
[2018-05-18] MEDS: METOPROLOL TARTRATE 25 MG TAB PO SCH (08:26)
[2018-05-18] MEDS: ASPIRIN 325 MG TAB PO SCH (08:26)
[2018-05-18] MEDS: CLOPIDOGREL 75 MG TAB PO SCH (08:26)
[2018-05-18] MEDS: ATORVASTATIN 40 MG TAB PO SCH (08:26)
[2018-05-18] MEDS: amLODIPine 2.5 MG TAB PO SCH (08:26)
[2018-05-18] MEDS: HEPARIN SODIUM,PORCINE 5,000 UNIT/ML 1 ML VIAL SQ SCH (08:27)
[2018-05-18] MEDS: TIMOLOL 0.5% OPHTH DROPS 5 ML BTL BOTH EYES SCH (08:45)
[2018-05-18] MEDS: BRIMONIDINE TARTRATE 0.2% DROPS 5 ML BTL BOTH EYES SCH (08:45)
--- NOTE | 2018-05-18 09:46 | P.DS ---
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 Consult: post cardiac surgery Do you want consulting provider notified?: Yes Primary care physician: Mathieu Marin - Mariah Diagnosis(es) (1) Anxiety Current Visit: Yes Status: Chronic (2) Coronary artery disease Current Visit: Yes Status: Chronic (3) Dyslipidemia Current Visit: Yes Status: Chronic (4) Family history of premature coronary artery disease Current Visit: Yes Status: Chronic (5) GERD (gastroesophageal reflux disease) Current Visit: Yes Status: Chronic (6) Glaucoma Current Visit: Yes Status: Chronic (7) Hypertension Current Visit: Yes Status: Chronic Hospital Course: FINAL DIAGNOSIS: 1. Double vessel coronary artery disease with total occlusion of the left anterior descending artery and right coronary artery, overall preserved left ventricular function 2. Hypertension 3. Hyperlipidemia 4. Bilateral ultrasound ablation of the right greater saphenous vein systems 5. Family history of premature coronary artery disease 6. EtOH use 2-7 drinks per week 7. Preoperative nasal swab positive for MSSA PRINCIPAL PROCEDURE: 1. Total arterial off-pump coronary artery bypass grafting using the left internal mammary artery to the distal left anterior descending artery as a patch angioplasty, the left radial artery connected to the aorta using the heartstring 3 device and connected distally to the distal right coronary artery , proximal posterior descending coronary artery. 2. Endoscopic harvesting of the left radial artery. 3. Intraoperative transesophageal echocardiogram and epi-aortic scanning. 4. Intraoperative graft flow measurements using the Briligstim system. HISTORY OF PRESENT ILLNESS: This is a 62-year-old gentleman who is followed by Dr. Mathieu Marin on an outpatient basis. Recently, the patient has been experiencing episodes of chest discomfort associated with lightheadedness, diaphoresis, nausea associated with activity. Due to these symptoms he underwent a stress echocardiogram which demonstrated stress-induced hypokinetic distal anterior and apical wall motion abnormality, he did not have any complaints of chest discomfort during stress test. In addition he underwent Holter monitor placement which demonstrated normal sinus rhythm with short bursts of supraventricular tachycardia. He was seen by Dr. Castanon from [facility]ology [facility] and was recommended to undergo elective heart catheterization which demonstrated a totally occluded right coronary artery and a totally occluded proximal left anterior descending coronary artery. Left ventriculogram was completed which showed ejection fraction 50%. The patient was referred to Dr. Bridges from cardiothoracic surgery. He was recommended to undergo off-pump coronary artery bypass surgery. The usual perioperative course was discussed in detail with the patient and his , all risks and benefits were explained, all questions were answered, and consent was obtained to proceed with surgery on an elective basis. HOSPITAL COURSE: The patient was admitted to the hospital on 05/14/2018, taken to the preoperative area, prepared in the usual fashion, and subsequently taken to the operating room where Dr. Bridges performed total arterial off-pump coronary artery bypass grafting using the left internal mammary artery to the distal left anterior descending artery as a patch angioplasty, the left radial artery connected to the aorta using the heartstring 3 device and connected distally to the distal right coronary artery, proximal posterior descending artery, endoscopic harvesting of the left radial artery, intraoperative transesophageal echocardiogram, epi-aortic scanning and intraoperative graft flow measurements using the SkyRank system. Upon completion of surgery the patient was transferred to the cardiovascular intensive care unit where he was recovered, monitored hemodynamically, and where he progressed to cardiac rehabilitation phase 1. He was extubated, all lines, tubes and drips were discontinued when appropriate and he was transferred to [address] [place] [address] cardiac stepdown unit for further monitoring and rehabilitation. His oxygen was titrated off, he continued to work with physical and occupational therapy, he was tolerating oral diet, his pain was controlled and he was ready to be discharged to home with [facility] on postoperative day #4. He has received written and verbal instruction regarding his medications, activity restrictions, signs and symptoms requiring physician notification and his follow -up appointments. COMPLICATIONS: There were no postoperative complications. CONSULTATIONS: 1. Dr. Castanon for cardiology management. 2. Dr. Triana for pulmonary and ventilator management. 3. Dr. Luna for medical management. DISCHARGE INSTRUCTIONS: 1. No driving for 4 weeks, or until physician gives their ok. 2. The patient should sleep in their own bed, no medical bed needed. 3. Stairs are not an issue. If the bedroom is upstairs, it is advised that the patient go up at night and down in the morning for the first week. Go slowly, using handrail and take 1 step at a time. 4. PABLO hose are to be worn for 30 days or until physician discontinues. 5. Heart hugger is to be worn 100% of the time until physician discontinues.( except when showering) 6. No lifting, pushing, or pulling more than 10 pounds for 12 weeks. The physician will advise of any restriction changes. 7. The patient is expected to continue the prescribed walking program. 8. Continue pain control per as needed orders. 9. Continue with incentive spirometry and splinting/heart hugger until otherwise directed by the physician. 10. Must shower daily using liquid antibacterial soap and a separate white washcloth for each individual incision. 11. Routine sternal incision care, no ointments, lotions or powders on the incisions. 12. Please notify surgeon/nurse practitioner for temperature greater than 101F or purulent drainage from incisions 13. Prescriptions for first 30 days given per cardiac surgery service. After 30 days, all prescription refills obtained through cardiology/primary care physician. 14. A red arm and has been placed on this patient it should be worn for 30 days post surgery and will be removed by the cardiothoracic surgeons. If an ER visit is necessary, please make sure the number on the red arm band is called. HOME HEALTH SERVICES TO PROVIDE: RN SKILLED HOME CARE SERVICES FOR POST-OP SURGICAL PATIENTS WITH THE FOLLOWING: Coronary Artery Bypass Surgery (CABG), Mitral Valve Replacement/ Repair ( MVR), Aortic Valve Replacement/Repair (AVR) RN TO CONTINUE EDUCATION FROM ``ROAD TO A HEALTH HEART PATIENT EDUCATION MANUAL" (GIVEN TO PATIENT IN THE HOSPITAL) MEDICATION RECONCILIATION WITH EDUCATION NEEDED ON FIRST HOME VISIT EMPHASIZE IMPORTANCE OF WEARING BREAST SUPPORT/HEART HUGGER ENCOURAGE USE OF INCENTIVE SPIROMETER 10 X EVERY HOUR WHILE AWAKE ENCOURAGE UTILIZATION OF LOWER EXTREMITY COMPRESSION STOCKINGS/PABLO HOSE and ELEVATE LEGS ABOVE LEVEL OF HEART WHILE AT REST. ENCOURAGE AMBULATION 3-5x/day INCREASING TOLERATES, WHILE AVOID EXTREMES IN TEMPERATURE FREQUENCY: RN TO OPEN THE PATIENT WITHIN 24 HOURS OF DISCHARGE FROM THE HOSPITAL WITH TELEHEALTH INSTALLED AT [facility] [place], RN TO VISIT 2-3 X A WEEK FOR 4 WEEKS ESTABLISHED BY PATIENT NEEDS. LABORATORY: CBC, CMP TO BE DRAWN ON THE THIRD DAY HOME, , 05/21/2018 (RAN STAT) FAX RESULTS TO [phone]. TELEHEALTH PARAMETERS: WEIGHT: NOTIFY MD OF WEIGHT GAIN OF 2 LBS IN 24 HOURS OR 5 LBS IN ONE WEEK HR: NOTIFY MD OF HR <55 BPM OR HR>100 BPM BP: NOTIFY MD IF BP <90/55 OR BP>140/100 O2 SAT: NOTIFY MD IF PO2<93% ON ROOM AIR SEND TELEHEALTH REPORT TO [facility] AND CARDIOVASCULAR SURGEON THE FIRST WEEK OF CARE AND THEN BI-WEEKLY. PLEASE ADDITIONALLY COMMUNICATE ANY ABNORMALS AND NEW FINDINGS TO THE SURGEONS OFFICE [phone]. Plan - Discharge Summary Discharge Rx Participant: Yes New Discharge Prescriptions: New Acetaminophen Tab [Tylenol] 650 mg PO Q6HR PRN tab PRN Reason: Pain Scale 6 To 10 Acetaminophen Tab [Tylenol] 325 mg PO Q6HR PRN tab PRN Reason: Pain Scale 1 To 5 amLODIPine [Norvasc] 2.5 mg PO DAILY #30 tab Aspirin 325 mg PO DAILY tab Atorvastatin [Lipitor] 40 mg PO DAILY #30 tab Clopidogrel [Plavix] 75 mg PO DAILY #30 tab Metoprolol Tartrate [Lopressor] 25 mg PO BID #60 tab Pantoprazole [Protonix] 40 mg PO AC-BRKFST #30 tablet.dr Rice-Docusate Sodium [Senokot-S] 2 each PO HS #14 tab Continue Travoprost [Travatan Z 0.004%] 1 drop BOTH EYES DAILY Brimonidine Tartrate/Timolol [Combigan 0.2%-0.5% Eye Drops] 1 drop BOTH EYES BID Netarsudil Mesylate [Rhopressa] 1 drop BOTH EYES HS Discontinued Aspirin 81 mg PO HS Atorvastatin [Lipitor] 40 mg PO DAILY #90 tab Isosorbide Mononitrate ER [Imdur] 30 mg PO DAILY #30 tab.er.24h Metoprolol Tartrate [Lopressor] 25 mg PO BID #60 tab Nitroglycerin Sl Tabs [Nitrostat] 0.4 mg SUBLINGUAL Q5M PRN #25 tab PRN Reason: Chest Pain Mupirocin 2% Oint [Bactroban 2% Oint] 1 applic NASAL BID Discharge Medication List Brimonidine Tartrate/Timolol [Combigan 0.2%-0.5% Eye Drops] 1 drop BOTH EYES BID 07/05/16 [History] Travoprost [Travatan Z 0.004%] 1 drop BOTH EYES DAILY 07/05/16 [History] Netarsudil Mesylate [Rhopressa] 1 drop BOTH EYES HS 04/14/18 [History] Acetaminophen Tab [Tylenol] 325 mg PO Q6HR PRN tab 05/18/18 [Rx] Acetaminophen Tab [Tylenol] 650 mg PO Q6HR PRN tab 05/18/18 [Rx] Aspirin 325 mg PO DAILY tab 05/18/18 [Rx] Atorvastatin [Lipitor] 40 mg PO DAILY #30 tab 05/18/18 [Rx] Clopidogrel [Plavix] 75 mg PO DAILY #30 tab 05/18/18 [Rx] Metoprolol Tartrate [Lopressor] 25 mg PO BID #60 tab 05/18/18 [Rx] Pantoprazole [Protonix] 40 mg PO AC-BRKFST #30 tablet. 05/18/18 [Rx] Sennosides-Docusate Sodium [Senokot-S] 2 each PO HS #14 tab 05/18/18 [Rx] amLODIPine [Norvasc] 2.5 mg PO DAILY #30 tab 05/18/18 [Rx] Follow up Appointment(s)/Referral(s): Gris Luna NPC [Nurse Practitioner] - 05/22/18 12:00 pm Lisa Castanon MD [STAFF PHYSICIAN] - 05/25/18 8:30 am Jose Bridges MD [STAFF PHYSICIAN] - 06/12/18 10:15 am [facility], [NON-STAFF] - 1 Week Mathieu Marin MD [Primary Care Provider] - 06/01/18 11:00 am Jean-Pierre Triana MD [STAFF PHYSICIAN] - 06/08/18 3:30 pm Ambulatory/Diagnostic Orders: Complete Blood Count w/diff [LAB.AMB] Time Frame: 3 Days, Location: None Selected Comprehensive Metabolic Panel [LAB.AMB] Time Frame: 3 Days, Location: None Selected Activity/Diet/Wound Care/Special Instructions: DISCHARGE INSTRUCTIONS: 1. No driving for 4 weeks, or until physician gives their ok. 2. The patient should sleep in their own bed, no medical bed needed. 3. Stairs are not an issue. If the bedroom is upstairs, it is advised that the patient go up at night and down in the morning for the first week. Go slowly, using handrail and take 1 step at a time. 4. PABLO hose are to be worn for 30 days or until physician discontinues. 5. Heart hugger is to be worn 100% of the time until physician discontinues.( except when showering) 6. No lifting, pushing, or pulling more than 10 pounds for 12 weeks. The physician will advise of any restriction changes. 7. The patient is expected to continue the prescribed walking program. 8. Continue pain control per as needed orders. 9. Continue with incentive spirometry and splinting/heart hugger until otherwise directed by the physician. 10. Must shower daily using liquid antibacterial soap and a separate white washcloth for each individual incision. 11. Routine sternal incision care. No powders, lotions, ointments on incisions. 12. Please call surgeon/FOUNTAIN SERVER for temp greater than 101 F or purulent drainage from incisions. 13. Narcotic medications were discussed with the patient, including the potential for misuse, addiction, and abuse. Opiod Start Talking form was reviewed with the patient. 14. All prescriptions given by surgeon for 30 days. Refills need to be filled through pantomimist/primary care physician. 15. A Red armband has been placed on the patient. It should be worn for 30 days post surgery and will be removed by the cardiac surgeons. If an ER visit is necessary, please make sure the number on the Red armband is called. HOME HEALTH SERVICES TO PROVIDE: RN SKILLED HOME CARE SERVICES FOR POST-OP SURGICAL PATIENTS WITH THE FOLLOWING: Coronary Artery Bypass Surgery (CABG), Mitral Valve Replacement/ Repair ( MVR), Aortic Valve Replacement/Repair (AVR) RN TO CONTINUE EDUCATION FROM ``ROAD TO A HEALTH HEART PATIENT EDUCATION MANUAL (GIVEN TO PATIENT IN THE HOSPITAL) MEDICATION RECONCILIATION WITH EDUCATION NEEDED ON FIRST HOME VISIT EMPHASIZE IMPORTANCE OF WEARING BREAST SUPPORT/HEART HUGGER ENCOURAGE USE OF INCENTIVE SPIROMETER 10 X EVERY HOUR WHILE AWAKE ENCOURAGE UTILIZATION OF LOWER EXTREMITY COMPRESSION STOCKINGS/PABLO HOSE and ELEVATE LEGS ABOVE LEVEL OF HEART WHILE AT REST. ENCOURAGE AMBULATION 3-5x/day INCREASING TOLERATES, WHILE AVOID EXTREMES IN TEMPERATURE FREQUENCY: RN TO OPEN THE PATIENT WITHIN 24 HOURS OF DISCHARGE FROM THE HOSPITAL WITH TELEHEALTH INSTALLED AT [facility] [place], RN TO VISIT 2-3 X A WEEK FOR 4 WEEKS ESTABLISHED BY PATIENT NEEDS. LABORATORY: CBC, CMP TO BE DRAWN ON THE THIRD DAY HOME, (RAN STAT) FAX RESULTS TO [phone]. TELEHEALTH PARAMETERS: WEIGHT: NOTIFY MD OF WEIGHT GAIN OF 2 LBS IN 24 HOURS OR 5 LBS IN ONE WEEK HR: NOTIFY MD OF HR <55 BPM OR HR>100 BPM BP: NOTIFY MD IF BP <90/55 OR BP>140/100 O2 SAT: NOTIFY MD IF PO2<93% ON ROOM AIR SEND TELEHEALTH REPORT TO [facility] AND CARDIOVASCULAR SURGEON THE FIRST WEEK OF CARE AND THEN BI-WEEKLY. PLEASE ADDITIONALLY COMMUNICATE ANY ABNORMALS AND NEW FINDINGS TO THE SURGEONS OFFICE. Discharge Disposition: HOME WITH HOME HEALTH SERVICES
[2018-05-18 10:45] VITALS: BP 106/68; RESP 18; TEMP 98.5
--- NOTE | 2018-05-18 13:25 | P.PN ---
Subjective Progress Note Date: 05/18/18 Principal diagnosis: Coronary artery disease status post coronary artery bypass grafting The patient is seen today 05/16/2018 in follow-up in the intensive care unit. He is awake and alert in no acute distress. He is postoperative day #2. He is having some surgical chest wall discomfort otherwise doing well. He denies any worsening shortness of breath, cough or congestion. Maintaining good O2 saturations in the 90s on room air. He is working well with the incentive spirometer. Chest x-ray stable showing cardiomegaly and bibasilar infiltrates with small effusions. He is afebrile. White count 8.6. Hemoglobin 11.9. Creatinine 0.8. On 10/15/2018 patient seen again in follow-up on selective care unit, he is on room air, he is in no distress, pulse ox is 95%, afebrile, hemodynamically stable, today's chest x-ray has been reviewed with Dr. Triana and showed bibasilar atelectasis, and small bilateral pleural effusions. Patient has been ambulating, tolerating activity well, is in -440 mL fluid balance. Labs have been reviewed, shows WBC of 8.3, hemoglobin of 11.2, electrolytes and renal profile all within normal limits. is achieving 1800 on his incentive spirometer today, anticipate discharge home tomorrow On 05/18/2018 patient seen in follow-up on selective care unit. Doing well, on room air, he has been up ambulating, tolerating activity well, working on his incentive spirometer, her pulse ox is 97%, in the dynamically stable, her chest x-ray today, no acute events overnight, today's labs have been noted, and are essentially unremarkable. Incisions clean dry and intact, he is wearing his heart hugger on. Patient is going home today follow-up in the office with Dr. Triana in 1 week Objective - Vital Signs Vital signs: Vital Signs Temp 98.5 F 05/18/18 08:00 Pulse 65 05/18/18 08:00 Resp 18 05/18/18 08:00 BP 106/68 05/18/18 08:00 Pulse Ox 97 05/18/18 08:00 Intake & Output 05/17/18 05/18/18 05/18/18 18:59 06:59 18:59 Intake Total 1080 650 360 Output Total 650 Balance 1080 0 360 Weight 92 kg Intake: Oral 1080 650 360 Output: Urine 650 Other: Voiding Method Toilet Toilet Toilet Urinal Urinal Urinal # Voids 2 3 ABP, PAP, CO, CI - Last Documented Arterial Blood Pressure 131/63 Pulmonary Artery Pressure 25/13 Cardiac Output 6.9 Cardiac Index 3.2 - Exam GENERAL EXAM: Alert, 62-year-old white male comfortable in no apparent distress. On room air HEAD: Normocephalic/atraumatic. EYES: Normal reaction of pupils, equal size. Conjunctiva pink, sclera white. NOSE: Clear with pink turbinates. THROAT: No erythema or exudates. NECK: No masses, no JVD, no thyroid enlargement, no adenopathy. CHEST: No chest wall deformity. Symmetrical expansion. Midsternal incision is clean dry and intact, covered with a dressing, patient has a Heart Hugger on LUNGS: Equal air entry with no crackles, wheeze, rhonchi or dullness. CVS: Regular rate and rhythm, normal S1 and S2, no gallops, no murmurs, no rubs ABDOMEN: Soft, nontender. No hepatosplenomegaly, normal bowel sounds, no guarding or rigidity. EXTREMITIES: No clubbing, no edema, no cyanosis, 2+ pulses and upper and lower extremities. MUSCULOSKELETAL: Muscle strength and tone normal. SPINE: No scoliosis or deformity SKIN: No rashes CENTRAL NERVOUS SYSTEM: Alert and oriented -3. No focal deficits, tone is normal in all 4 extremities. PSYCHIATRIC: Alert and oriented -3. Appropriate affect. Intact judgment and insight. - Labs CBC & Chem 7: 05/18/18 07:13 05/18/18 07:13 Labs: Abnormal Lab Results - Last 24 Hours (Table) 05/17/18 05/17/18 05/18/18 Range/Units 16:27 20:43 01:59 RBC (4.30-5.90) m/uL Hgb (13.0-17.5) gm/dL Hct (39.0-53.0) % Glucose (74-99) mg/dL POC Glucose (mg/dL) 111 H 133 H 109 H (75-99) mg/dL Total Protein (6.3-8.2) g/dL Albumin (3.5-5.0) g/dL 05/18/18 05/18/18 05/18/18 Range/Units 05:31 07:13 07:13 RBC 3.42 L (4.30-5.90) m/uL Hgb 10.3 L (13.0-17.5) gm/dL Hct 32.6 L (39.0-53.0) % Glucose 108 H (74-99) mg/dL POC Glucose (mg/dL) 102 H (75-99) mg/dL Total Protein 5.5 L (6.3-8.2) g/dL Albumin 3.2 L (3.5-5.0) g/dL Assessment and Plan Plan: #1 Coronary artery disease status post coronary artery bypass grafting utilizing a MARQUEZ to the LAD and radial artery graft to the PDA. Postoperative day #4. The patient had been extubated successfully without any major complications. #2 Hypertension. #3 Hyperlipidemia. #4 Glaucoma. Plan: Patient is stable from pulmonary perspective, no new chest x-ray today, he is on room air, tolerating ambulation, continue encouraging deep breathing and coughing, patient will need follow-up in the office with Dr. Triana and 7-10 days. I performed a history & physical examination of the patient and discussed their management with my nurse practitioner, Ivelisse Celeste. I reviewed the nurse practitioner's note and agree with the documented findings and plan of care. Lung sounds are positive for diminished breath sounds. The findings and the impression was discussed with the patient. I attest to the documentation by the nurse practitioner. Time with Patient: Less than 30
== END 2018-05-18 10:53 | disposition home health service (06) | DRG 236 ==
LOC: 2ORMAIN 05:36 → 2SICU 13:42 → 3SCARD 05-16 13:02
PROVIDERS: ADMIT Surgery; ATTEND Surgery
PROC: B24BZZ4 Ultrasonography of Heart with Aorta, Transesophageal (ICD-10-PCS; 2018-05-14)
PROC: 02100Z9 Bypass Coronary Artery, One Artery from Left Internal Mammary, Open Approach (ICD-10-PCS; principal; 2018-05-14 08:00)
PROC: 02100AW Bypass Coronary Artery, One Artery from Aorta with Autologous Arterial Tissue, Open Approach (ICD-10-PCS; 2018-05-14 08:00)
PROC: 03BC4ZZ Excision of Left Radial Artery, Percutaneous Endoscopic Approach (ICD-10-PCS; 2018-05-14 08:00)
DX: I25.10 Atherosclerotic heart disease of native coronary artery without angina pectoris (principal); D62 Acute posthemorrhagic anemia; I25.82 Chronic total occlusion of coronary artery; D69.59 Other secondary thrombocytopenia; E78.5 Hyperlipidemia, unspecified; F41.9 Anxiety disorder, unspecified; H40.9 Unspecified glaucoma; I11.9 Hypertensive heart disease without heart failure; K21.9 Gastro-esophageal reflux disease without esophagitis; E78.2 Mixed hyperlipidemia; J44.9 Chronic obstructive pulmonary disease, unspecified; Z79.82 Long term (current) use of aspirin; Z79.899 Other long term (current) drug therapy; Z82.49 Family history of ischemic heart disease and other diseases of the circulatory system; Z83.79 Family history of other diseases of the digestive system
CPT/HCPCS: 71045; 71046; 80053; 82330; 82805; 83735; 85025; 85520; 85610; 85730; 86850; 86891; 86900; 86901; 86920; 94002; 94640

== ENCOUNTER → 2018-12-30 | Outpatient (CLI) | payer OTHER ==
[2018-12-30 09:11] LABS: HCT 44.1 % (39.0-53.0); HGB 14.6 gm/dL (13.0-17.5); MCHC 33.2 g/dL (31.0-37.0); MCV 93.6 fL (80.0-100.0); Mean Platelet Volume 8.6; Platelet Count 169 k/uL (150-450); RBC 4.71 m/uL (4.30-5.90); RDW 13.7 % (11.5-15.5); WBC 5.3 k/uL (3.8-10.6)
[2018-12-30 17:06] LABS: African American GFR (CKD) 104.2 (60.0-200.0); Albumin 4.5 g/dL (3.80-4.90); Albumin/Globulin Ratio 2.25 (1.60-3.17); Anion Gap 7.5 mmol/L (4.00-12.00); BUN/Creat Ratio 18.89 Ratio (12.00-20.00); Carbon Dioxide 28.5 mmol/L (21.6-31.8); Chol/HDL Ratio 2.38; Potassium 4.7 mmol/L (3.5-5.5); Total Bilirubin 0.7 mg/dL (0.2-1.2); Total Protein 6.5 g/dL (6.2-8.2)
== END | disposition home or self-care (01) ==
LOC: LABWHC1 08:01
PROVIDERS: ATTEND Physician Assistant
DX: Z00.00 Encounter for general adult medical examination without abnormal findings (principal); E78.2 Mixed hyperlipidemia; E29.0 Testicular hyperfunction; R53.83 Other fatigue; Z13.220 Encounter for screening for lipoid disorders; Z12.5 Encounter for screening for malignant neoplasm of prostate
CPT/HCPCS: 36415; 80053; 80061; 82306; 84153; 84402; 84403; 84439; 84443; 85027

== ENCOUNTER 2023-10-17 08:34 | Day surgery (SDC) | payer MEDICARE, OTHER ==
[~2023-10-17 08:34] MED LIST changes: -ALBUMIN HUMAN 25% 50 ML IV ONE; -ALBUMIN HUMAN 5% 500 ML IVPB ONE; -ASPIRIN 325 MG TAB PO ONE; -ATORVASTATIN 10 MG TAB PO ONE; -CALCIUM CHLORIDE 100 MG/ML 10 ML SYRINGE IV ONE; -CHLORHEXIDINE GLUCONATE 15 ML CUP MUCOUS MEM ONE; -CLEVIDIPINE BUTYRATE 25 MG in EMPTY BAG 1 BAG IV ONE; -DEXTROSE 5% IN WATER 1,000 ML with POTASSIUM CHLORIDE 110 MEQ, MAGNESIUM SULFATE 16 MEQ... IV ONE; -DEXTROSE 5% IN WATER 1,000 ML with POTASSIUM CHLORIDE 25 MEQ, SODIUM CHLORIDE 2.5MEQ/ML... IRRIGATION ONE; -DILTIAZEM 50 MG in SODIUM CHLORIDE 0.9% 40 ML IV ONE; -HEPARIN SODIUM 1,000 UN/ML (10ML VL) IV ONE; -HEPARIN SODIUM,PORCINE 5,000 UNIT in SODIUM CHLORIDE 0.9% 500 ML 500 ML IV ONE; -INSULIN REGULAR 100 UNIT in SODIUM CHLORIDE 0.9% 100 ML IV ONE; -LACTATED RINGERS 1,000 ML IV ONE; -MAGNESIUM SULFATE MG 500 MG/ML IV ONE; -MANNITOL 25% 12.5 GM/50 ML VIAL IV ONE; -METOPROLOL TARTRATE 12.5 MG TAB PO ONE; -NITROGLYCERIN-D5W PMX 25 MG/250 ML BTL IV ONE; -NITROGLYCERIN-D5W PMX 50 MG in DEXTROSE/WATER 1 250ML.BAG IV ONE; -NOREPINEPHRINE 4 MG in SODIUM CHLORIDE 0.9% 250 ML IV ONE; -PAPAVERINE 360 MG in SODIUM CHLORIDE 0.9% 90 ML IV ONE; -PHENYLEPHRINE 40 MG in SODIUM CHLORIDE 0.9% 250 ML IV ONE; -PHENYLEPHRINE-0.9% NACL SYG 1 MG/10 ML SYRINGE IV ONE; -PROPOFOL 1,000 MG/100 ML VIAL IV ONE; -PROTAMINE SULFATE 10 MG/ML 25 ML VIAL IV ONE; -PROTAMINE SULFATE 250 MG in EMPTY BAG 1 BAG IV ONE; -SODIUM BICARB 8.4% 50 ML SYR (1 MEQ/ML) IV ONE; +SODIUM CHLORIDE 0.9% 1,000 ML BAG IV STA; -SODIUM CHLORIDE 0.9% 1,000 ML IV ONE; -TRANEXAMIC ACID 2,000 MG in SODIUM CHLORIDE 0.9% 180 ML IV ONE; -ceFAZolin 1,000 MG in SODIUM CHLORIDE 0.9% IRRIGATIO 1,000 ML IRRIGATION ONE; -ceFAZolin 2,000 MG in SODIUM CHLORIDE 0.9% 30 ML IVPB ONE
[2023-10-17] MEDS: IV FLUID CONTINUATION 500 ML IV ONE (09:30)
[2023-10-17] MEDS: SODIUM CHLORIDE 0.9% 500 ML 500 ML IV SCH (09:37)
[2023-10-17 09:57] LABS: African American GFR (CKD) 86 (>60 ml/min/1.73 sqM); Anion Gap 3 mmol/L; Blood Urea Nitrogen 19 mg/dL (9-20); Carbon Dioxide 29 mmol/L (22-30); Chloride 107 mmol/L (98-107); Glucose 102 mg/dL (74-99); Non-African American GFR(CKD) 75 (>60 ml/min/1.73 sqM); Potassium 5.1 mmol/L (3.5-5.1); Sodium 139 mmol/L (137-145)
[2023-10-17] MEDS: BENZOCAINE SPRAY 1 CAN TOPICAL ONE (10:28)
[2023-10-17] MEDS ORDERED: LIDOCAINE 1% INJ 10MG/ML (20 ML MDV) ONE (10:31)
[2023-10-17] MEDS ORDERED: PROPOFOL 10 MG/ML 20 ML VIAL IV ONE (10:31)
[2023-10-17] MEDS ORDERED: LORazepam 0.5 MG TAB PO PRN (10:46)
--- NOTE | 2023-10-17 10:50 | P.PCN ---
Date of Procedure: 10/17/23 Description of Procedure: Indication: Atrial fibrillation Procedure Description: After explaining the procedure to the patient, it's risk and complications, blood pressure, heart rate and O2 saturation were monitored. The throat was sprayed with Cetacaine. Patient received sedation per anesthesia department. The probe was introduced into the esophagus without difficulty. Images were obtained. Following that, the probe was removed. There was no immediate complication. Findings: Left atrial size is moderately dilated, left atrial appendage is normal. Left ventricular size and systolic function are normal. The aortic valve, mitral valve, tricuspid and pulmonic valve are normal. Descending thoracic aorta is normal. No pericardial fusion was noted. Contrast bubble study revealed no shunting across the interatrial septum. Doppler: Pulse wave and color Doppler were obtained, and revealed mild to moderate multi jet mitral regurgitation with mild tricuspid and trace aortic regurgitation. There was no shunting by color Doppler study. Conclusion: 1. Dilated left atrium with normal appearance of the left atrial appendage 2. Normal ventricle size and systolic function 3. Mild to moderate mitral regurgitation 4. Mild tricuspid and trace aortic regurgitation 5. No shunting across the interatrial septum Cardioversion: After obtaining IMMANUEL and obtaining sedated state by the anesthesia department a synchronized biphasic cardioversion using 150 J was performed with caodaism of sinus mechanism, there was no immediate complications.
[2023-10-17 11:10] VITALS: TEMP 97.5
[2023-10-17 12:10] VITALS: RESP 18
[2023-10-17 12:32] VITALS: BP 146/91; PULSE 57
[2023-10-17] MEDS ORDERED: RIVAROXABAN 20 MG TAB PO SCH (17:30)
[2023-10-17] MEDS ORDERED: lisinopriL 5 MG TAB PO SCH (21:00)
[2023-10-17] MEDS ORDERED: METOPROLOL TARTRATE 25 MG TAB PO SCH (21:00)
[2023-10-17] MEDS ORDERED: ATORVASTATIN 40 MG TAB PO SCH (21:00)
[2023-10-17] MEDS ORDERED: AMIODARONE 200 MG TAB PO SCH (21:00)
[2023-10-17] MEDS ORDERED: NON FORMULARY DRUG (Buspirone Hcl [Buspar] 7.5 MG Tablet) PO SCH (21:00)
[2023-10-18] MEDS ORDERED: NON FORMULARY DRUG (Netarsudil Mesylat/Latanoprost [Rocklatan 0.02%-0.005% Eye Drp] 2.5 ML BOTH EYES SCH (09:00)
== END 2023-10-17 12:47 | disposition home or self-care (01) ==
LOC: OR 08:34
PROVIDERS: ATTEND Internal Medicine Interventional Cardiology
DX: I48.11 Longstanding persistent atrial fibrillation (principal); I08.3 Combined rheumatic disorders of mitral, aortic and tricuspid valves; I25.10 Atherosclerotic heart disease of native coronary artery without angina pectoris; E78.2 Mixed hyperlipidemia; I10 Essential (primary) hypertension; K21.9 Gastro-esophageal reflux disease without esophagitis; Z95.1 Presence of aortocoronary bypass graft; Z88.5 Allergy status to narcotic agent; Z79.899 Other long term (current) drug therapy; Z79.01 Long term (current) use of anticoagulants
CPT/HCPCS: 93312; 93320; 93325; 92960; 80048; J2001; J2704

== ENCOUNTER 2024-01-15 10:37 | Day surgery (SDC) | payer MEDICARE ==
[2024-01-13 15:24] VITALS: BMI 25.9
[2024-01-15] MEDS: SODIUM CHLORIDE 0.9% 1,000 ML IV SCH (11:31)
[2024-01-15] MEDS: IV FLUID CONTINUATION 1,000 ML IV ONE (11:32)
[2024-01-15 11:53] LABS: Basophils % (A) 0 %; Eosinophils % (A) 0 %; HCT 45.9 % (39.0-53.0); HGB 15.1 gm/dL (13.0-17.5); Lymphocytes % (A) 12 %; MCH 31.4 pg (25.0-35.0); MCHC 32.9 g/dL (31.0-37.0); MCV 95.5 fL (80.0-100.0); Mean Platelet Volume 9.8; Monocytes # (A) 0.4 k/uL (0-1.0); Monocytes % (A) 5 %; Neutrophils # (A) 6.3 k/uL (1.3-7.7); Neutrophils % (A) 80 %; Platelet Count 185 k/uL (150-450); RBC 4.81 m/uL (4.30-5.90); RDW 14.2 % (11.5-15.5); WBC 7.8 k/uL (3.8-10.6)
[2024-01-15 12:05] LABS: ALT 29 U/L (4-49); AST 32 U/L (17-59); African American GFR (CKD) >90 (>60 ml/min/1.73 sqM); Albumin 4.3 g/dL (3.5-5.0); Alkaline Phosphatase 103 U/L (38-126); Anion Gap 9 mmol/L; Blood Urea Nitrogen 18 mg/dL (9-20); Calcium 9.1 mg/dL (8.4-10.2); Carbon Dioxide 28 mmol/L (22-30); Chloride 104 mmol/L (98-107); Glucose 104 mg/dL (74-99); Non-African American GFR(CKD) 81 (>60 ml/min/1.73 sqM); Sodium 141 mmol/L (137-145); Total Protein 7.4 g/dL (6.3-8.2)
[2024-01-15] MEDS ORDERED: SUCCINYLCHOLINE CHLORIDE 200 MG/10 ML VIAL IV ONE (13:31)
[2024-01-15] MEDS ORDERED: PROPOFOL 10 MG/ML 20 ML VIAL IV ONE (13:31)
[2024-01-15] MEDS ORDERED: MIDAZOLAM 2 MG/2 ML VIAL ONE (13:31)
[2024-01-15] MEDS ORDERED: HEPARIN SODIUM,PORCINE 10,000 UNIT/ML 1 ML VIAL ONE (13:31)
[2024-01-15] MEDS ORDERED: HEPARIN SODIUM,PORCINE 5,000 UNIT/ML 1 ML VIAL ONE (13:31)
[2024-01-15] MEDS ORDERED: PHENYLEPHRINE 10 MG/ML 5 ML VIAL ONE (13:31)
[2024-01-15] MEDS ORDERED: fentaNYL (PF) 50 MCG/ML 2 ML AMP ONE (13:31)
[2024-01-15] MEDS: LIDOCAINE 1% INJ 10MG/ML (20 ML MDV) SQ ONE (14:15)
[2024-01-15] MEDS: HEPARIN SODIUM,PORCINE 10,000 UNIT in SODIUM CHLORIDE 0.9% 1,000 ML IRRIGATION ONE (14:22)
[2024-01-15] MEDS: HEPARIN SODIUM,PORCINE (1 ML) 2,500 UNIT in SODIUM CHLORIDE 0.9% 250 ML IRRIGATION ONE (14:22)
[2024-01-15] MEDS: IOPAMIDOL-370 100ML BTL INJ ONE (14:47)
[2024-01-15] MEDS: LACTATED RINGERS 1,000 ML IV ONE (14:52)
[2024-01-15 15:05] LABS: T4, Free (Free Thyroxine) 1.79 ng/dL (0.78-2.19)
[2024-01-15] MEDS: hydrALAZINE HCL 20 MG/ML 1 ML VIAL IVP STA (17:29)
[2024-01-15] MEDS ORDERED: ACETAMINOPHEN TAB 325 MG TAB PO PRN (17:58)
--- NOTE | 2024-01-15 18:42 | P.HPCAR ---
History of Present Illness This is Dr. Boudreaux dictating an H/P on this patient The patient was interviewed and examined IMPRESSION / ASSESSMENT: Persistent atrial fibrillation Known CAD status post coronary artery bypass grafting with a two-vessel bypass graft Left ventricular ejection fraction 50% Symptomatic atrial fibrillation with tiredness fatigue shortness of breath that improved once he underwent electrical cardioversion Stress test did not show any evidence for ischemia PLAN: Proceed with A-fib ablation Continue Xarelto Reassess blood pressure HPI Patient has had persistent atrial fibrillation for the last 6 to 12 months and new developed tiredness fatigue shortness of breath and post cardioversion his symptoms resolved completely He was on amiodarone and this was discontinued He denies any dizziness lightheadedness no undue shortness of breath at this time. He is in sinus rhythm today No fever chills cough ROS: No fever chills or rigors, no cough, phlegm or expectoration, no nausea, vomiting or diarrhea, no hematuria, dysuria, no musculoskeletal complaints, no strokes or seizures, no skin lesions. EXAMINATION: No JVD no lower extremity edema Clear lungs no rhonchi no crackles Heart sounds are normal Elevated blood pressure readings, 180/84 mmHg REVIEW OF LABS, ECG & MEDICAL DATA White count 7.8 thousand, normal Hemoglobin normal at 15 Platelet count 185,000 normal Normal electrolytes Normal renal function TSH 0.063 Medications include Zestril atorvastatin rivaroxaban 20 mg p.o. daily and Lopressor 25 mg twice daily Amiodarone was discontinued 2 to 3 weeks back Physical Exam Vitals: Vital Signs Temp Pulse Resp BP Pulse Ox 01/15/24 18:15 65 16 169/88 98 01/15/24 18:00 67 16 174/93 99 01/15/24 17:45 64 16 176/95 99 01/15/24 17:30 63 16 197/108 100 01/15/24 17:15 96.8 F L 60 16 179/102 100 01/15/24 11:35 98.3 F 57 L 16 180/84 99 Intake and Output 01/15/24 01/15/24 01/15/24 06:59 14:59 22:59 Intake Total 975 100 Output Total 100 Balance 975 0 Intake: IV 975 100 Output: Urine 100 Past Medical History Past Medical History: Atrial Fibrillation, Coronary Artery Disease (CAD), Eye Disorder, GERD/Reflux, Hyperlipidemia, Hypertension, Myocardial Infarction ([place]) Additional Past Medical History / Comment(s): See Dr Boudreaux's H&P. GLAUCOMA. Questionable heart attack prior to bypass. Last Myocardial Infarction Date:: 2018 History of Any Multi-Drug Resistant Organisms: None Reported Past Surgical History: Back Surgery, Coronary Bypass/CABG Additional Past Surgical History / Comment(s): Colonoscopy, injections and laser treatments to bilateral lower extremities for varicose veins, laser eye treatments for glaucoma, cardioversion, IMMANUEL. Past Anesthesia/Blood Transfusion Reactions: No Reported Reaction Additional Past Anesthesia/Blood Transfusion Reaction / Comment(s): Easily sedated. Smoking Status: Never smoker - Past Family History Mother Family Medical History: Cancer, Coronary Artery Disease (CAD) Additional Family Medical History / Comment(s): Ovarian cancer. Father Family Medical History: AFIB, Hypertension Additional Family Medical History / Comment(s): Hypertension and atrial fibrilla tion. Physical Examination Vital Signs Temp Pulse Resp BP Pulse Ox 01/15/24 18:15 65 16 169/88 98 01/15/24 18:00 67 16 174/93 99 01/15/24 17:45 64 16 176/95 99 01/15/24 17:30 63 16 197/108 100 01/15/24 17:15 96.8 F L 60 16 179/102 100 01/15/24 11:35 98.3 F 57 L 16 180/84 99 Intake and Output 01/15/24 01/15/24 01/15/24 06:59 14:59 22:59 Intake Total 975 100 Output Total 100 Balance 975 0 Intake: IV 975 100 Output: Urine 100 Results 01/15/24 11:23 01/15/24 11:23 Cardiac Enzymes 01/15/24 Range/Units 11:23 AST 32 (17-59) U/L CBC 01/15/24 Range/Units 11:23 WBC 7.8 (3.8-10.6) k/uL RBC 4.81 (4.30-5.90) m/uL Hgb 15.1 (13.0-17.5) gm/dL Hct 45.9 (39.0-53.0) % Plt Count 185 (150-450) k/uL Comprehensive Metabolic Panel 01/15/24 Range/Units 11:23 Sodium 141 (137-145) mmol/L Potassium 5.0 (3.5-5.1) mmol/L Chloride 104 (98-107) mmol/L Carbon Dioxide 28 (22-30) mmol/L BUN 18 (9-20) mg/dL Creatinine 0.96 (0.66-1.25) mg/dL Glucose 104 H (74-99) mg/dL Calcium 9.1 (8.4-10.2) mg/dL AST 32 (17-59) U/L ALT 29 (4-49) U/L Alkaline Phosphatase 103 (38-126) U/L Total Protein 7.4 (6.3-8.2) g/dL Albumin 4.3 (3.5-5.0) g/dL Current Medications Generic Name Dose Route Start Last Admin Trade Name Freq PRN Reason Stop Dose Admin Acetaminophen 650 mg 01/15/24 17:58 Acetaminophen Tab 325 Mg Tab PO Q6HR PRN Mild Pain (Scale 1 to 3) Atorvastatin Calcium 40 mg 01/15/24 21:00 Atorvastatin 40 Mg Tab PO HS FARRUKH Acetaminophen 1,000 mg/ IV 100 mls @ 400 mls/hr 01/15/24 18:30 Solution IVPB 01/15/24 18:44 ONCE ONE Lisinopril 5 mg 01/15/24 21:00 Lisinopril 5 Mg Tab PO HS FARRUKH Metoprolol Tartrate 25 mg 01/15/24 21:00 Metoprolol Tartrate 25 Mg Tab PO BID FARRUKH Rivaroxaban 20 mg 01/15/24 19:00 Rivaroxaban 20 Mg Tab PO W/SUPPER [facility] Protocol Sodium Chloride 12 ml 01/15/24 17:58 Sodium Chloride 0.9% Flush 10 Ml Syringe IV Q12HR PRN Line Flush Intake and Output 01/15/24 01/15/24 01/15/24 06:59 14:59 22:59 Intake Total 975 100 Output Total 100 Balance 975 0 Intake: IV 975 100 Output: Urine 100 01/15/24 11:23 01/15/24 11:23
--- NOTE | 2024-01-15 18:51 | P.EPPROC ---
- EP Procedure Note Electrophysiology Procedure Note: PROCEDURE A. fib ablation with PVI, left atrial septal ablation, left atrial roof ablation DIAGNOSIS Persistent atrial fibrillation, symptomatic, refractory to therapy Hypothyroidism on amiodarone, TSH currently suppressed. Amiodarone was discontinued few weeks back RESULT No left atrial appendage mass seen on intracardiac echo Successful A. fib ablation/pulmonary vein isolation of all veins using cryo- ablation Complete entrance block in all 4 veins confirmed Left atrial septal ablation Left atrial roof ablation No evidence for phrenic nerve injury Esophageal deflection YES Electrical cardioversion with a synchronized shock across the chest YES / NO PROCEDURE DETAILS Written informed consent prior to procedure. Patient brought to the EP lab. General anesthesia given. Heparin administered. A city maintained above 300 seconds Both groins prepped and draped per protocol and venous sheaths placed. Esophagus intubated, circa catheter for temperature monitoring an endoscope for possible esophageal deflection. Phrenic nerve monitoring performed. Esophageal temperature monitoring performed. Esophageal deflection performed if circa catheter overlapping with the balloon or circa temperature less than 27.5C Intracardiac echocardiography performed. Pericardium evaluated. Left atrial appendage evaluated. Left atrium evaluated along with pulmonary veins Transseptal catheterization performed under fluoroscopic guidance and intracardiac echo guidance Cryoablation sheath exchanged, balloon catheter along with achieve catheter placed in the left atrium. Pulmonary veins isolated in the following sequence: Left superior pulmonary vein followed by left inferior pulmonary vein, followed by right inferior pulmonary vein and lastly right superior pulmonary vein. Phrenic nerve stimulation along with capture thresholds within the SVC and right superior pulmonary vein to identify the phrenic nerve proximity to the cryo- balloon. Pulmonary veins isolated and confirmed with entrance and exit block. Phrenic nerve integrity confirmed at the end of the procedure Ablation of the left atrial roof performed with sequential lesions from the left superior to the right superior pulmonary veins. Ablation of the electrograms confirmed Ablation of the left atrial septum performed with cannulation of the superior branch of the right inferior and the inferior branch of the right superior vein to achieve ablation of the posterior septum of the left atrium. Ablation of electrograms confirmed. 2 lesions were applied 1 more clockwise and the other more counterclockwise. Electrical cardioversion performed for persistence of atrial fibrillation despite successful ablation. Diagnostic catheters for the high right atrium, His bundle, coronary sinus placed. LA and RA pressures recorded RA pressure: 7/2/4 LA pressure: 13/3/7 Diagnostic EP study with coronary sinus pacing and recording Baseline measurements: Sinus cycle length 1136, CT interval 193 ms, QRS 121 ms and QT 449 ms AH 108 ms and HV interval 48 ms Venous sheaths were removed and hemostasis assured with a closure device. Patient extubated and transferred to recovery Increase procedural time While venous access was fairly straightforward, negotiating the right femoral- iliac vein to the IVC was quite difficult. Multiple wires were attempted to get the long sheath up to the right atrium Multiple exchanges had to be made and the dilator of the cryo sheath had to be changed in order to get up into the RA Right femoral iliac venography was performed before the bolus of heparin was administered to ensure that there was no injury. No femoral or iliac vein injury was noted and IV heparin bolus was administered. The patient did well perioperatively. Transseptal access was obtained easily but the long sheath had an issue with the valve. When attempting to remove all air from the sheath, further air would be drawn into the syringe. Therefore a long wire was placed from the femoral access site across the fossa ovalis into the left superior pulmonary vein and a new sheath was placed/exchanged However the problem was not resolved and therefore a new cryoballoon catheter was used. Thereafter there were no issues with drawing air during negative suction The patient tolerated the procedure well without any acute complications there was no evidence for any air embolism at any point and we kept a close watch on intracardiac echo The issue simply was with the catheter and the sheath both of which were replaced. Thereafter the rest of the ablation proceeded uneventfully During ablation multiple attempts had to be made to move the esophagus a safe distance of the from the pulmonary vein draining cryoablation, to avoid excessive thermal cooling of the esophagus This took extra time and effort to keep the esophagus a safe distance away from the cryoablation balloon. Left-sided esophagus. Multiple shorter lesions were administered to the left inferior pulmonary vein to safeguard the esophagus despite deflection. PROCEDURES PERFORMED Diagnostic EP study CS pacing and recording Left and right transseptal catheterization Catheter the mapping of the tachycardia Intracardiac echocardiography Pulmonary vein isolation with transseptal and comprehensive EPS, [id number] Extended procedure duration Left atrial roof line, +[id number] Linear ablation, left atrium, +[id number]
[2024-01-15] MEDS: ACETAMINOPHEN IV (For NPO) 1,000 MG in EMPTY BAG 1 BAG IVPB ONE (20:12)
[2024-01-15] MEDS: RIVAROXABAN 20 MG TAB PO SCH (20:14)
[2024-01-15] MEDS: METOPROLOL TARTRATE 25 MG TAB PO SCH (20:15)
[2024-01-15] MEDS: lisinopriL 5 MG TAB PO SCH (20:15)
[2024-01-15] MEDS: ATORVASTATIN 40 MG TAB PO SCH (20:15)
[2024-01-16 01:46] VITALS: BP 123/74
[2024-01-16 08:31] VITALS: PULSE 71; RESP 17; TEMP 98.5
--- NOTE | 2024-01-16 08:49 | P.DS ---
Providers Attending physician: Vitaliy Boudreaux Primary care physician: [facility] Course: Patient is doing well. No chest discomfort dizziness or lightheadedness. Groins of healed well no hematoma He is not dizzy or lightheaded He has been ambulating around in the room and up to the bathroom On examination blood pressures 123/74 mmHg pulse rate in the 70s sinus rhythm afebrile Heart sounds are normal and regular Breath sounds are clear Yesterday evening he had a mild sore throat but this is better now Impression Persistent atrial fibrillation Status post PVI, left atrial septal ablation and left atrial roof ablation Coronary artery disease status post coronary artery bypass grafting next Plan Discharge home. Patient is stable Continue anticoagulation with Xarelto Continue all other medications as before Plan - Discharge Summary Discharge Rx Participant: No New Discharge Prescriptions: No Action Metoprolol Tartrate [Lopressor] 25 mg PO BID #60 tab Atorvastatin [Lipitor] 40 mg PO HS lisinopriL [Zestril] 5 mg PO HS Dorzolamide-Timol 2.23%/0.68% [Cosopt] 1 drop BOTH EYES BID Cholecalciferol [Vitamin D3 (25 Mcg = 1000 Iu)] 25 mcg PO HS busPIRone HCL 10 mg PO BID Rivaroxaban [Xarelto] 20 mg PO W/SUPPER Netarsudil Mesylat/Latanoprost [Rocklatan 0.02%-0.005% Eye Drp] 1 drop BOTH EYES DAILY LORazepam [Lorazepam] 0.5 mg PO DAILY PRN PRN Reason: Anxiety Discharge Medication List Metoprolol Tartrate [Lopressor] 25 mg PO BID #60 tab 05/18/18 [Rx] Atorvastatin [Lipitor] 40 mg PO HS 05/27/22 [History] Rivaroxaban [Xarelto] 20 mg PO W/SUPPER 05/27/22 [History] Dorzolamide-Timol 2.23%/0.68% [Cosopt] 1 drop BOTH EYES BID 10/15/23 [History] LORazepam [Lorazepam] 0.5 mg PO DAILY PRN 10/15/23 [History] Netarsudil Mesylat/Latanoprost [Rocklatan 0.02%-0.005% Eye Drp] 1 drop BOTH EYES DAILY 10/15/23 [History] lisinopriL [Zestril] 5 mg PO HS 10/15/23 [History] Cholecalciferol [Vitamin D3 (25 Mcg = 1000 Iu)] 25 mcg PO HS 01/13/24 [History] busPIRone HCL 10 mg PO BID 01/13/24 [History]
== END 2024-01-16 10:58 | disposition home or self-care (01) ==
LOC: CATHEP 10:37 → 6NMEDSUR 16:53 → CATHEP 01-16 10:58
PROVIDERS: ATTEND Internal Medicine Clinical Cardiac Electrophysiology
DX: I48.19 Other persistent atrial fibrillation
CPT/HCPCS: 80053; 84439; 84443; 85025; 86850; 86900; 86901; 92960; 93005; 93656; 93657